=== PATIENT | female | born 1955 | race Caucasian/White ===

== ENCOUNTER → 2020-01-19 10:34 | Outpatient (REF) | payer OTHER, SELFPAY ==
--- NOTE | 2020-01-19 10:30 | CA_ITS ---
Transthoracic Echocardiogram Patient (Last, First, Middle): Leila Finney, Gender: Female Date of : 1955 Age: 64 Procedure Date: 01/19/2020 Procedure Type: Transthoracic Echocardiogram Location: OP Height: 165.1 cm Weight: 77.11 kg BSA: 1.85 m2 Heart Rate: bpm BP: 130 / 81 mmHg Telemetry Monitor: RONEL Referring MD: Bryon Ding MD Symptoms: 134.4 Mitral valve prolapse Study Quality: Fair ECG Rhythm: Sinus Conclusions: - The left ventricular systolic function is normal. The visually estimated ejection fraction is between 65-70%. - No obvious valvular pathology seen on this study. Findings Left Ventricle Normal left ventricular cavity size. There is normal left ventricular wall thickness. The left ventricular systolic function is normal. The visually estimated ejection fraction is between 65-70%. There is no evidence of regional wall motion abnormalities. Diastolic function is normal for age. Right Ventricle Normal right ventricular cavity size and systolic function. Atria Both atria are normal in size. Aortic Valve There is a normal trileaflet aortic valve. There is mild calcification of the aortic valve. There is no aortic valve stenosis. There is no aortic valve regurgitation. Mitral Valve The mitral valve appears normal. There is trace mitral valve regurgitation. There is no mitral valve stenosis. Pulmonic Valve The pulmonic valve was not well visualized. Tricuspid Valve Normal tricuspid valve structure. There is trace tricuspid valve regurgitation. The pulmonary artery systolic pressure is normal. Great Vessels The aortic annulus, sinuses of valsalva, and asc aorta are normal in size. Venous The inferior vena cava is normal in size and collapses greater than 50% with inspiration. Pericardium/Pleural There is no evidence of pericardial effusion. Prior Study Comparison No prior study available for comparison. Recommendations, Care & Conclusions No obvious valvular pathology seen on this study. Measurements 2D Linear Measurements IVSd: 0.90 0.6-0.9/0.6-1.0 cm LVIDd: 4.26 3.9-5.3/4.2-5.9 cm LVIDd Index: 2.30 2.4-3.2/2.2-3.1 cm/m2 LVIDs: 2.60 2.0-3.6 cm LVPWd: 0.94 0.7-1.1 cm Ao Root: 2.50 2.1-3.5 cm LV Mass: 155.54 67-162/88-224 g LV Mass Index: 84.08 43-95/49-115 g/m2 LVOT Diam: 2.00 3.0+(-)1.3 cm 2D Systolic Function EF 4C: 71.80 >55% EF 2C: 76.30 >55% EF BiP: 74.70 >55% Mitral Valve MV Pk E: 0.74 MV PK A: 0.71 MV Decel Time: 143.00 E/A: 1.00 E'Lateral: 8.80 E'Medial: 8.41 E/E' Med: 8.80 E/E' Lat: 8.40 PHT: 42.00 MVA PHT: 5.24 Decel [place]: 5.17 Aortic Valve AoV Pk Elie: 1.76 AoV Pk Grad: 12.00 JOSE M: 2.30 LVOT LVOT Pk Elie: 1.15 LVOT Mn Elie: 0.77 LVOT VTI: 0.27 LVOT Pk Grad: 5.00 LVOT Mn Grad: 3.00 LVOT Diam: 2.00 LVOT Area: 3.14 Diastolic Function MV Pk E: 0.74 MV Pk A: 0.71 E/A: 1.00 E'Medial: 8.41 E/E' Med: 8.80 E' Laterial: 8.80 E/E' Lat: 8.40 Tricuspid Valve TR Pk Elie: 2.25 TR Pk Grad: 20.00 RA Press: 3.00 RVSP: 23.00 Great Vessels Aorta Ao Root-2D: 2.50 2.0-3.7 cm Ao Asc: 2.60 2.1-3.4 cm Updated in Other Vendor System with Status of Final Marcus Go MD electronically signed on 01/21/2020 10:23:30 AM with status of Final
== END ==
LOC: HO.CARD 10:34
PROVIDERS: PCP Internal Medicine; Visit Provider Internal Medicine
DX: I34.1 Nonrheumatic mitral (valve) prolapse (principal)
CPT/HCPCS: 93306

== ENCOUNTER 2020-02-06 14:14 | Outpatient (REF) | payer OTHER, SELFPAY | END 2020-02-06 14:15 | disposition home or self-care (01) | LOC: HO.LNP 14:14 | PROVIDERS: Visit Provider Nurse Practitioner Family | DX: N39.0 Urinary tract infection, site not specified (principal) | CPT/HCPCS: 87086 ==

== ENCOUNTER 2021-05-16 12:22 | Outpatient (REF) | payer OTHER, SELFPAY ==
--- NOTE | ~2021-05-16 | XR_ITS ---
EXAMINATION: XR CERVICAL SPINE CLINICAL INFORMATION: Cervicalgia COMPARISON: Cervical spine x-rays 01/22/2013 TECHNIQUE: 3 views of the cervical spine were obtained. FINDINGS: The cervical spine is visualized in its entirety. There is minimal anterolisthesis of C3 on C4 in addition to minimal retrolisthesis of C5 on C6. C1/C2 articulation is within normal limits. Cervical vertebral body heights are maintained. There is mild narrowing of the C5/C6 disc space height. Small osteophytes are present within the mid and lower cervical spine. There is no prevertebral soft tissue swelling. Visualized lung apices are well aerated. XR/XR cervical spine 3V IMPRESSION: Mild degenerative changes of the cervical spine.
== END 2021-05-16 12:23 | disposition home or self-care (01) ==
LOC: HO.XRAY 12:22
PROVIDERS: PCP Internal Medicine; Visit Provider Internal Medicine
DX: M54.2 Cervicalgia (principal)
CPT/HCPCS: 72040

== ENCOUNTER 2021-07-01 07:09 | Emergency (ER) | payer OTHER, SELFPAY ==
--- NOTE | 2021-07-01 | ECG_ITS ---
Test Reason : CHEST PAIN Blood Pressure : / mmHG Vent. Rate : 085 BPM Atrial Rate : 085 BPM P-R Int : 158 ms QRS Dur : 078 ms QT Int : 364 ms P-R-T Axes : 041 047 009 degrees QTc Int : 433 ms Normal sinus rhythm Normal ECG When compared with ECG of 12-JUN-2019 20:56, No significant change was found Referred By: Generic ED Physician Electronically Signed By:Shaggy Chavez
--- NOTE | ~2021-07-01 | XR_ITS ---
EXAMINATION: XR CHEST CLINICAL INFORMATION: Chest pain COMPARISON: Chest x-ray 06/12/2019 TECHNIQUE: 2 views of the chest were obtained. FINDINGS: No significant abnormality is noted involving the heart, lungs, mediastinum, bony thorax or soft tissues. XR/XR chest 2V IMPRESSION: Unremarkable chest examination.
--- NOTE | ~2021-07-01 | CT_ITS ---
EXAMINATION: CT HEAD WITHOUT CONTRAST CLINICAL INFORMATION: Left-sided headache COMPARISON: Previous head CT October 2014 TECHNIQUE: Contiguous axial imaging was performed from the skull base to vertex without intravenous administration of contrast. This CT examination was performed using dose optimization techniques as appropriate, variously including the following: *Automated exposure control *Adjustment of mA and/or kV according to patient size (this includes techniques or standardized protocols for targeted exams where dose is matched to indication/reason for exam; i.e. extremities or head) *Use of iterative reconstruction technique DLP: 624 mGy-cm FINDINGS: There is no evidence of acute intracranial hemorrhage or territorial infarction. No abnormal mass effect or midline shift is seen. Dc to white matter differentiation is well preserved. No extra-axial fluid collections are identified. The ventricles are normal in size. There is no abnormal attenuation within the brain parenchyma. The osseous structures and soft tissues are normal. The mastoid air cells and visualized portions of the paranasal sinuses are well aerated. CT/CT head/brain wo con IMPRESSION: Unremarkable exam.
[2021-07-01 07:29] VITALS: BP 152/72; PULSE 78; RESP 16; TEMP 36.1; O2SAT 98; BMI 30.7
--- NOTE | 2021-07-01 10:11 | ED_ITS ---
HPI - Chest Pain General Chief Complaint: Chest Pain Stated Complaint: Chest pain Time Seen by Provider: 07/01/21 10:11 Source: patient Mode of arrival: ambulatory Limitations: no limitations History of Present Illness HPI narrative: 65-year-old female who presents emergency department for evaluation of chest pain and headache. The patient states that at 06:30 hours she was woken from sleep with chest pain. She states that the pain was initially located in her mid chest and radiated to her back. She states that she also felt like there was a band like sensation across her chest. She states that the pain was a sharp pressure-like pain which was 10/10. The pain lasted 2-3 hours. She states that she has been having difficulty with her GERD and her doctor changed her from omeprazole to pantoprazole. She states she took a lot of antacids prior to coming to the emergency department. At the time of evaluation she states that her chest pain significantly improved and is almost completely resolved. The patient had associated diaphoresis, throat pain. She denied nausea, vomiting, arm pain. The pain did not change with breathing or with movement. The patient states that over the last week and half she has been having a constant, dull ?toothache like ?pain located in her left temporal area. She states the pain is been constant but waxes and wanes in intensity. The pain is currently 4/10. She saw her PCP approximately 1 week prior and her PCP noted left leg swelling and hypertension and started the patient on hydrochlorothiazide. She states that the headache is not improved but the swel ling of her left leg has improved. She denies any change in vision associated with her headaches. The patient does have a history of migraine headache but states this is different than her usual migraine. The patient has been taking Emgality(galcanezumab) injections monthly for the last 6 months for her migraines, this was prescribed by our neurologist, Dr. Babin. Her last injection was on (5 days prior to evaluation). She states that this has not improved her left amish pain. MD complaint: chest pain Onset (ago): unknown (prior to arrrival) Timing of current episode: constant Prior episodes: No Onset: during rest (Woke her from sleep) Pain location: substernal and other (Anterior chest) Pain radiation: back Severity: severe Pain scale (0-10): 10 Quality: tightness Relieving factors: antacids Exacerbating factors: nothing Context: other (Elevated blood pressure, left leg swelling, left-sided headache) Associated symptoms: nausea, vomiting and diaphoresis Treatment prior to arrival: none Risk Factors Coronary artery disease risk factors: hypertension Related Data On Oral Contraceptives: No Home Medications Medication Instructions Recorded Confirmed oxybutynin chloride 5 mg tablet 5 mg PO TID 02/06/20 06/27/21 biotin 10 mg tablet 10 mg PO DAILY 02/08/20 06/27/21 methenamine hippurate 1 gram tablet 1 g PO BID 02/08/20 06/27/21 amoxicillin 500 mg capsule 2,000 mg PO ONCE cap 05/16/21 06/27/21 galcanezumab-gnlm 120 mg/mL mg SUBCUT .[id number] ml 05/16/21 06/27/21 subcutaneous pen injector (Emgality Pen) Previous Rx's Medication Instructions Recorded phenazopyridine 200 mg tablet 200 mg PO TID PRN #6 tab 02/06/20 (Pyridium) Imitrex 100 mg tablet (sumatriptan See Rx Instructions PO .COMPLEX 30 04/19/20 succinate) Days #10 tab NS meclizine 25 mg tablet 25 mg PO TID PRN 30 Days #90 tab 06/08/20 phenazopyridine 200 mg tablet 200 mg PO TID 3 Days #9 tab 12/26/20 (Pyridium) omeprazole 20 mg capsule,delayed 20 mg PO QAM #90 cap 04/27/21 release pantoprazole 40 mg tablet,delayed 40 mg PO DAILY 90 Days #90 tab 05/16/21 release hydrochlorothiazide 12.5 mg tablet 12.5 mg PO DAILY #30 tab 06/27/21 lidocaine 5 % topical patch 1 patch TOPICAL DAILY #15 ea 06/27/21 lorazepam 0.5 mg tablet 0.25 mg PO DAILY PRN #4 tab 06/27/21 sumatriptan succinate 100 mg tablet See Rx Instructions PO .COMPLEX 06/27/21 #14 tab metoclopramide HCl 10 mg tablet 10 mg PO Q6H PRN #14 tab 07/01/21 (Reglan) Allergies Allergy/AdvReac Type Severity Reaction Status Date / Time oxycodone [From PERCOCET] Allergy Severe HIVES Verified 06/27/21 14:06 hydrocodone [From VICODIN] AdvReac Severe PASS Verified 06/27/21 14:06 OUT/VOMITING Monistat 1 Allergy Unknown Unknown Uncoded 06/27/21 14:06 Suprep Bowel Prep Allergy Unknown Nausea and Uncoded 06/27/21 14:06 vomiting PMFSH Past Medical History Medical History Cataract Dizziness GERD (gastroesophageal reflux disease) History of deep venous thrombosis (~2002) History of paroxysmal supraventricular tachycardia Lumbar degenerative disc disease Migraine Mitral valve prolapse Surgical History History of surgery History of surgery (~2002) Family History Family History Father Diabetes Hypertension Stroke Cardiovascular disease Mother Myocardial infarction Social History Social History Housing: House Alcohol intake: current Alcohol intake frequency: a few times a week Patient Tobacco Use Status: Former Tobacco user e-Cigarette/Vaping Use: Never Used Second Hand Smoke Exposure: Yes Use of substances other than those prescribed or required for medical reasons: No Advance Directives: No Advance Directives Information Provided: No service: No Current occupational status: retired Cognitive needs: No Hearing needs: No Vision needs: No Physical Exam Vital Signs: Vital Signs: Last Vital Signs Temp 98.2 F 07/01/21 11:44 Pulse 81 07/01/21 14:00 Resp 17 07/01/21 14:00 BP 139/69 07/01/21 14:00 Pulse Ox 96 07/01/21 14:00 BMI result Body Mass Index 30.7 Const: General: cooperative and no acute distress Orientation/consci ousness: oriented to person and oriented to place Limitations: no limitations HEENT: Head: Yes normal to inspection, Yes normocephalic and Yes atraumatic Ears: external ears normal General nose exam: Normal external nose present Face and sinus: Yes normal facial exam and Yes other (Mild left temporal tenderness) Mouth: Normal oral and palatal mucosa present Throat: Yes posterior oropharynx normal Eyes: General: appearance normal, both eyes and all related structures Pupils: Equal, round and reactive pupils present Neck: Neck: Yes normal visual inspection, Yes no lymphadenopathy, Yes trachea midline and Yes supple Chest: Chest palpation & inspection: normal inspection of the chest and normal palpation of entire chest wall Resp: Effort & Inspection: normal respiratory effort and able to speak in complete sentences Auscultation: clear to auscultation bilaterally Cardio: Rate: regular rate Rhythm: regular rhythm Heart sounds: S1 normal heart sound present, S2 normal heart sound present and no murmurs GI: Inspection: Yes normal to inspection Palpation (GI): Soft to palpation, nontender and no guarding Auscultation: normal bowel sounds : General: Yes no CVA tenderness Back/Spine/Pelvis: Back: no CVA tenderness Skin: General skin exam: no rashes or lesions noted Neuro: General: oriented to person and oriented to place Cranial nerves: Yes CN's II-XII intact bilaterally and Yes Equal, round and reactive pupils present Cognition (Neuro): normal cognition Motor exam (neuro): 5/5 motor strength present throughout Extrem: General: Yes normal to inspection Psych: Appearance: grossly normal Speech and movement: Normal speech and movement present Affect: normal affect Attitude: cooperative Thought process: Normal thought process present Thought content: Normal thought content present Course Course Course Narrative: 65-year-old female who presents emergency department for evaluation of sudden onset substernal chest pain radiating to her back and a bandlike pain across her anterior chest which woke her up from sleep at 06:30 hours, the pain was 10 of 10 associated with diaphoresis left shoulder pain, throat pain and back pain. The pain lasts approximately 2-3 hours and is not significantly improved. Patient did take antacids prior to coming to the emergency department. Patient also is complaining of a dull pain to her left amish area is different than her usual migraine headache, this pain is been present for approximately 1 and half weeks. The patient's migraine headache syndrome is being treated with the biologic agent,Emgality injections monthly x6 months with her last injection 5 days prior. Patient did see her PCP recently who noted left leg swelling and hypertension started the patient on hydrochlorothiazide. Vital signs revealed an elevated blood pressure of 152/72 otherwise were unremarkable. Physical ex amination did reveal some left temporal tenderness otherwise was unremarkable. I did order laboratory evaluation includes CBC, CMP, troponin, PT/INR, PTT, D- dimer, ESR, EKG, chest x-ray and CT scan of the brain. Patient was treated with Toradol 15 mg IV, Benadryl 50 mg IV and Reglan 10 mg IV. 14 18: Laboratory evaluation: CBC, CMP were unremarkable except for slight elevation in the calcium 11.0 which we do not think is significant. Coags were normal including a D-dimer which was below detectable limits. Initial high sensitivity troponin was less than 3.5, repeat troponin at 03:00 hours was again less than 3.5 which is reassuring. Chest x-ray was unremarkable. CT scan of the head revealed no clear cause for the patient's left-sided head pain. ESR is pending. Patient feels significantly better after the above treatment. She states that her headache has improved was not resolved completely. At this time I do not think that the patient's chest pain is caused by myocardial injury or by acute PE. The patient does have significant occurred in most likely her chest pain is caused by soften chills spasm/reflux disease. I did discuss this with the patient. The patient will be discharged home. She was started on the following migraine regimen: Reglan 10 mg, Benadryl 50 mg and Excedrin migraine 1 tablet every 6 hours as needed for headache. Patient was given printed and verbal instructions discharged home. MDM - Chest Pain Lab Data Attestation: I reviewed the patient's lab results. Result diagrams: 07/01/21 10:18 07/01/21 10:18 Labs: Lab Results 07/01/21 07/01/21 07/01/21 Range/Units 10:18 10:18 10:18 WBC 5.9 (4.8-10.8) X10*3/uL RBC 4.68 (4.20-5.50) X10*6/uL Hgb 13.4 (12.0-16.0) g/dl Hct 41.8 (37.0-47.0) % MCV 89.3 (80.0-98.0) fL MCH 28.6 (27.0-33.0) pg MCHC 32.1 (31.0-35.0) g/dl RDW 13.8 (11.0-16.0) % Plt Count 287 (160-400) X10*3/uL MPV 9.5 (9.4-12.3) fL Immature Gran % (Auto) 0.2 (0.0-0.4) % Neut % (Auto) 61.7 (45-73) % Lymph % (Auto) 30.6 (20-40) % [place] % (Auto) 5.6 (2-11) % Eos % (Auto) 1.4 (0-4) % Baso % (Auto) 0.5 (0-2) % Lymph # (Auto) 1.8 (1.2-4.9) X10*3/uL [place] # (Auto) 0.3 (0.1-1.2) X10*3/uL Eos # (Auto) 0.1 (0.0-0.4) X10*3/uL Baso # (Auto) 0.0 (0.0-0.2) X10*3/uL Abs Immat Gran (auto) 0.01 (0.00-0.03) X10*3/uL Absolute Neuts (auto) 3.7 (2.0-8.3) x10*3/uL Absolute Nucleated RBC 0.000 (0.0-0.012) X10*3/uL Nucleated RBC % (auto) 0.0 (0.0-0.2) /100WBC ESR (0-20) MM/HR PT (9.9-13.0) SEC INR (0.9-1.1) APTT (24.1-38.0) SEC D-Dimer High Sensitivty NG/ML Sodium 141 (135-145) mmol/L Potassium 3.8 (3.3-5.1) mmol/L Chloride 103 (96-108) mmol/L Carbon Dioxide 28 (22-29) mmol/L Anion Gap 14 (12-20) BUN 16 (9-16) mg/dL Creatinine 0.81 (0.5-1.4) mg/dL Estim Creat Clear Calc 75.1 Estimated GFR > 60 Random Glucose 98 (60-115) mg/dL Calcium 11.0 H (8.4-10.2) mg/dL Troponin I High Sens < 3.5 (<3.5-17.0) ng/L 07/01/21 07/01/21 07/01/21 Range/Units 11:47 11:47 13:39 WBC (4.8-10.8) X10*3/uL RBC (4.20-5.50) X10*6/uL Hgb (12.0-16.0) g/dl Hct (37.0-47.0) % MCV (80.0-98.0) fL MCH (27.0-33.0) pg MCHC (31.0-35.0) g/dl RDW (11.0-16.0) % Plt Count (160-400) X10*3/uL MPV (9.4-12.3) fL Immature Gran % (Auto) (0.0-0.4) % Neut % (Auto) (45-73) % Lymph % (Auto) (20-40) % [place] % (Auto) (2-11) % Eos % (Auto) (0-4) % Baso % (Auto) (0-2) % Lymph # (Auto) (1.2-4.9) X10*3/uL [place] # (Auto) (0.1-1.2) X10*3/uL Eos # (Auto) (0.0-0.4) X10*3/uL Baso # (Auto) (0.0-0.2) X10*3/uL Abs Immat Gran (auto) (0.00-0.03) X10*3/uL Absolute Neuts (auto) (2.0-8.3) x10*3/uL Absolute Nucleated RBC (0.0-0.012) X10*3/uL Nucleated RBC % (auto) (0.0-0.2) /100WBC ESR (0-20) MM/HR PT 12.6 (9.9-13.0) SEC INR 1.1 (0.9-1.1) APTT 34.2 (24.1-38.0) SEC D-Dimer High Sensitivty < 150 NG/ML Sodium (135-145) mmol/L Potassium (3.3-5.1) mmol/L Chloride (96-108) mmol/L Carbon Dioxide (22-29) mmol/L Anion Gap (12-20) BUN (9-16) mg/dL Creatinine (0.5-1.4) mg/dL Estim Creat Clear Calc Estimated GFR Random Glucose (60-115) mg/dL Calcium (8.4-10.2) mg/dL Troponin I High Sens < 3.5 (<3.5-17.0) ng/L 07/01/21 Range/Units 13:39 WBC (4.8-10.8) X10*3/uL RBC (4.20-5.50) X10*6/uL Hgb (12.0-16.0) g/dl Hct (37.0-47.0) % MCV (80.0-98.0) fL MCH (27.0-33.0) pg MCHC (31.0-35.0) g/dl RDW (11.0-16.0) % Plt Count (160-400) X10*3/uL MPV (9.4-12.3) fL Immature Gran % (Auto) (0.0-0.4) % Neut % (Auto) (45-73) % Lymph % (Auto) (20-40) % [place] % (Auto) (2-11) % Eos % (Auto) (0-4) % Baso % (Auto) (0-2) % Lymph # (Auto) (1.2-4.9) X10*3/uL [place] # (Auto) (0.1-1.2) X10*3/uL Eos # (Auto) (0.0-0.4) X10*3/uL Baso # (Auto) (0.0-0.2) X10*3/uL Abs Immat Gran (auto) (0.00-0.03) X10*3/uL Absolute Neuts (auto) (2.0-8.3) x10*3/uL Absolute Nucleated RBC (0.0-0.012) X10*3/uL Nucleated RBC % (auto) (0.0-0.2) /100WBC ESR 13 (0-20) MM/HR PT (9.9-13.0) SEC INR (0.9-1.1) APTT (24.1-38.0) SEC D-Dimer High Sensitivty NG/ML Sodium (135-145) mmol/L Potassium (3.3-5.1) mmol/L Chloride (96-108) mmol/L Carbon Dioxide (22-29) mmol/L Anion Gap (12-20) BUN (9-16) mg/dL Creatinine (0.5-1.4) mg/dL Estim Creat Clear Calc Estimated GFR Random Glucose (60-115) mg/dL Calcium (8.4-10.2) mg/dL Troponin I High Sens (<3.5-17.0) ng/L ECG Data ECG #1: Attestation: I personally reviewed and interpreted this ECG as follows: Interpretation: 0713: Normal sinus rhythm with a rate of 85, normal OK interval, QRS duration QTC interval, inverted T-wave in lead 3 and AVF, no ST segment elevation, no ST segment depression, no PACs, no PVCs. This is a normal EKG. Discharge Plan Discharge Clinical Impression: Chest pain Qualifiers: Chest pain type: unspecified Qualified Code(s): R07.9 - Chest pain, unspecified Headache Qualifiers: Headache type: unspecified Headache chronicity pattern: acute headache Intractability: not intractable Qualified Code(s): R51.9 - Headache, unspecified Patient Disposition: Home, Self-Care Instructions: Chest Pain (ED), Acute Headache (ED) Additional Instructions: Your laboratory evaluation included a CBC, metabolic panel, D-dimer, sedimentation rate and 2 high sensitivity troponin I tests. These tests were all normal which is reassuring. Your EKG was unremarkable. Your chest x-ray was unremarkable. The CT scan of your brain revealed no clear cause left-sided headache At this time, I believe that your chest pain is probably related to your GERD/esophageal reflux. Continue taking medications as prescribed by your GI/primary providers. For your left-sided headache or your migraine I want you to take the following 3 medications together every 6 hours as needed for headache, nausea or vomiting. Reglan (metoclopramide) in 10 mg, 1 pill Benadryl 25 mg, 2 pills Excedrin migraine, 1 pills. After you take these medications, lie down in a dark quiet room and try to fall asleep. These medications will make you sleepy, do not drive or work after taking these medications. Follow-up with your doctor in 2 days. Please return to the emergency department if your symptoms get worse or if you develop any symptoms that are concerning to you. Prescriptions: New metoclopramide HCl [Reglan] 10 mg tablet 10 mg PO Q6H PRN (Reason: nausea and vomiting) Qty: 14 0RF No Action sumatriptan succinate [Imitrex] 100 mg tablet See Rx Instructions PO .COMPLEX 30 Days Qty: 10 5RF Rx Instructions: take 1 tab at onset of headache; if no relief, may repeat 1 tab after at least 2 hrs; max = 2 tabs/24 hrs PO phenazopyridine [Pyridium] 200 mg tablet 200 mg PO TID 3 Days Qty: 9 0RF omeprazole 20 mg capsule,delayed release(DR/EC) 20 mg PO QAM Qty: 90 0RF biotin 10 mg tablet 10 mg PO DAILY 0RF methenamine hippurate 1 gram tablet 1 g PO BID 0RF oxybutynin chloride 5 mg tablet 5 mg PO TID 0RF phenazopyridine [Pyridium] 200 mg tablet 200 mg PO TID PRN (Reason: pain) Qty: 6 0RF meclizine 25 mg tablet 25 mg PO TID PRN (Reason: dizziness) 30 Days Qty: 90 0RF hydrochlorothiazide 12.5 mg tablet 12.5 mg PO DAILY Qty: 30 0RF sumatriptan succinate 100 mg tablet See Rx Instructions PO .COMPLEX Qty: 14 0RF Rx Instructions: take 1 tab at onset of headache; if no relief, may repeat 1 tab after at least 2 hrs; max = 2 tabs/24 hrs PO lorazepam 0.5 mg tablet 0.25 mg PO DAILY PRN (Reason: anxiety) Qty: 4 0RF lidocaine 5 % adhesive patch,medicated 1 patch topical DAILY Qty: 15 0RF Rx Instructions: leave on most painful area for up to 12 hrs, to neck pain pantoprazole 40 mg tablet,delayed release (DR/EC) 40 mg PO DAILY 90 Days Qty: 90 3RF Rx Instructions: STOP Omeprazole 20 mg amoxicillin 500 mg capsule 2,000 mg PO ONCE 0RF Label Comments: for endocarditis prophylaxis Rx Instructions: take 2 hours before procedure Emgality Pen 120 mg/mL pen injector subcut .[id number] 0RF Interventions: ED Discharge Assessment Last Done: 07/01/21 14:34 Discharge Date/Time: 07/01/21 14:42
[2021-07-01 10:25] LABS: MANUAL DIFF FLAG NO
[2021-07-01 10:29] LABS: Basophils Percent Auto 0.5 % (0-2); Eosinophils Absolute Auto 0.1 X10*3/uL (0.0-0.4); Eosinophils Percent Auto 1.4 % (0-4); Hematocrit 41.8 % (37.0-47.0); Hemoglobin 13.4 g/dl (12.0-16.0); Imm Gran Abs Auto 0.01 X10*3/uL (0.00-0.03); Imm Gran Pct Auto 0.2 % (0.0-0.4); Lymphocytes Absolute Auto 1.8 X10*3/uL (1.2-4.9); Lymphocytes Percent Auto 30.6 % (20-40); Mean Corpuscular HGB Conc 32.1 g/dl (31.0-35.0); Mean Corpuscular Hemoglobin 28.6 pg (27.0-33.0); Mean Corpuscular Volume 89.3 fL (80.0-98.0); Mean Platelet Volume 9.5 fL (9.4-12.3); Monocytes Absolute Auto 0.3 X10*3/uL (0.1-1.2); Monocytes Percent Auto 5.6 % (2-11); Neutrophils Absolute Auto 3.7 x10*3/uL (2.0-8.3); Neutrophils Percent Auto 61.7 % (45-73); Platelet Count 287 X10*3/uL (160-400); Red Blood Count 4.68 X10*6/uL (4.20-5.50); Red Cell Distribution Width 13.8 % (11.0-16.0); White Blood Count 5.9 X10*3/uL (4.8-10.8)
[2021-07-01 10:49] LABS: Anion Gap 14 (12-20); Blood Urea Nitrogen 16 mg/dL (9-16); Carbon Dioxide 28 mmol/L (22-29); Chloride 103 mmol/L (96-108); Creatinine Clr Calc Pharmacy 75.1; Estimated Glomerular Filt Rate > 60; Glucose Random 98 mg/dL (60-115); Potassium 3.8 mmol/L (3.3-5.1); Sodium 141 mmol/L (135-145)
[2021-07-01 10:51] LABS: Troponin-I High Sensitivity < 3.5 ng/L (<3.5-17.0)
[2021-07-01 11:44] VITALS: BP 155/79; PULSE 85; RESP 16; TEMP 36.8; O2SAT 100
--- NOTE | 2021-07-01 11:58 | PC.NURSE ---
pt a&ox3, vss - slightly elevated bp, per pt high bp is new, saw pcp and was started on new medication for the same. chest pain started this am around 0600, pain is now 3/10. vehicle monitor technician applied - NSR. ultrasound guided IV placed, labs drawn, will continue to monitor.
[2021-07-01] MEDS: Ketorolac Tromethamine 15 MG/ML VIAL IVPUSH (12:03)
[2021-07-01 12:04] LABS: INTERNATIONAL NORM RATIO 1.1 (0.9-1.1); Prothrombin Time 12.6 SEC (9.9-13.0)
[2021-07-01] MEDS: Metoclopramide HCl 10 MG/2 ML VIAL IVPUSH (12:04)
[2021-07-01] MEDS: diphenhydrAMINE HCL 50 MG/ML VIAL IVPUSH (12:04)
[2021-07-01 12:07] LABS: Partial Thromboplastin Time 34.2 SEC (24.1-38.0)
--- NOTE | 2021-07-01 12:11 | PC.NURSE ---
obtained report from abel, patient currently a&ox3, family at bedside, pt difficult to access via iv, pt had access inserted via ultrasound by trained RN, labs drawn, pt medicated for pain per order, monitor car operator nsr 90s, vss, will continue to monitor
[2021-07-01 12:21] LABS: D Dimer High Sensitivity < 150 NG/ML
[2021-07-01 12:30] VITALS: PULSE 89
[2021-07-01] MEDS: 0.9 % Sodium Chloride 1,000 ML 999 ML IV (13:19)
--- NOTE | 2021-07-01 13:19 | PC.NURSE ---
flds started per provider order.
[2021-07-01 14:00] VITALS: BP 139/69; PULSE 81; RESP 17; O2SAT 96
[2021-07-01 14:06] LABS: Troponin-I High Sensitivity < 3.5 ng/L (<3.5-17.0)
--- NOTE | 2021-07-01 14:10 | PC.NURSE ---
pt a&ox3, vss - bp returned to norm, lab results pending, provider in room.
[2021-07-01 14:18] LABS: Erythrocyte Sedimentation Rate 13 MM/HR (0-20)
== END 2021-07-01 14:42 | disposition home or self-care (01) ==
PROVIDERS: Emergency Provider Emergency Medicine Emergency Medical Services; PCP Internal Medicine
DX: R07.9 Chest pain, unspecified (principal); R51.9 Headache, unspecified; K21.9 Gastro-esophageal reflux disease without esophagitis; I10 Essential (primary) hypertension; Z86.718 Personal history of other venous thrombosis and embolism
CPT/HCPCS: 36415; 70450; 71046; 80048; 84484; 85025; 85379; 85610; 85652; 85730; 93005; 96361; 96374; 96375; 99284; 99285; J1200; J1885; J2765

== ENCOUNTER 2021-07-05 08:53 | Outpatient (REF) | payer OTHER, SELFPAY ==
[2021-07-05 09:11] LABS: MANUAL DIFF FLAG NO
[2021-07-05 09:20] LABS: Basophils Percent Auto 0.5 % (0-2); Eosinophils Absolute Auto 0.2 X10*3/uL (0.0-0.4); Eosinophils Percent Auto 2.9 % (0-4); Hematocrit 42.3 % (37.0-47.0); Hemoglobin 13.9 g/dl (12.0-16.0); Imm Gran Abs Auto 0.02 X10*3/uL (0.00-0.03); Imm Gran Pct Auto 0.3 % (0.0-0.4); Lymphocytes Absolute Auto 2.3 X10*3/uL (1.2-4.9); Lymphocytes Percent Auto 35.4 % (20-40); Mean Corpuscular HGB Conc 32.9 g/dl (31.0-35.0); Mean Corpuscular Hemoglobin 28.8 pg (27.0-33.0); Mean Corpuscular Volume 87.8 fL (80.0-98.0); Mean Platelet Volume 9.6 fL (9.4-12.3); Monocytes Absolute Auto 0.5 X10*3/uL (0.1-1.2); Neutrophils Absolute Auto 3.6 x10*3/uL (2.0-8.3); Neutrophils Percent Auto 53.9 % (45-73); Platelet Count 312 X10*3/uL (160-400); Red Blood Count 4.82 X10*6/uL (4.20-5.50); Red Cell Distribution Width 13.6 % (11.0-16.0); White Blood Count 6.6 X10*3/uL (4.8-10.8)
[2021-07-05 09:35] LABS: Estimated Average Glucose 105 mg/dL; Hemoglobin A1c % 5.3 %
[2021-07-05 09:53] LABS: Alanine Aminotransferase 27 U/L (0-31); Albumin Level 4.5 g/dL (3.5-5.0); Alkaline Phosphatase 87 U/L (39-117); Anion Gap 15 (12-20); Aspartate Amino Transferase 23 U/L (5-31); Bilirubin Total 0.8 mg/dL (0.0-1.0); Blood Urea Nitrogen 18 mg/dL (9-16); Calcium 10.1 mg/dL (8.4-10.2); Carbon Dioxide 28 mmol/L (22-29); Chloride 101 mmol/L (96-108); Cholesterol 274 mg/dL; Estimated Glomerular Filt Rate > 60; Glucose Fasting 107 mg/dL (60-99); HDL Cholesterol 73 mg/dL; LDL Cholesterol Calculated 179 mg/dl; Potassium 4.1 mmol/L (3.3-5.1); Sodium 140 mmol/L (135-145); Total Protein 7.5 g/dL (6.5-8.0); Triglycerides 111 mg/dL
[2021-07-05 10:17] LABS: TSH reflex Free T4 1.96 uIU/mL (0.32-4.0)
[2021-07-05 10:28] LABS: Folate 17.3 ng/mL (> or = 4.0); Vitamin B12 433 pg/mL (200-900)
[2021-07-08 13:25] LABS: Calcium (PTHI) 10.3 mg/dL (8.6-10.4); PTHI 56 pg/mL (16-77)
[2021-07-10 13:41] LABS: Vitamin D 25-OH, D2 <4 ng/mL; Vitamin D 25-OH, D3 47 ng/mL; Vitamin D 25-OH, Total 47 ng/mL (30-100)
== END 2021-07-05 08:54 | disposition home or self-care (01) ==
LOC: HO.LAB 08:53
PROVIDERS: PCP Internal Medicine; Visit Provider Nurse Practitioner Acute Care
DX: K21.9 Gastro-esophageal reflux disease without esophagitis (principal); I10 Essential (primary) hypertension; R42 Dizziness and giddiness; I34.1 Nonrheumatic mitral (valve) prolapse
CPT/HCPCS: 36415; 80053; 80061; 82306; 82607; 82746; 83036; 83970; 84443; 85025

== ENCOUNTER 2021-07-31 07:23 | Outpatient (REF) | payer OTHER, SELFPAY ==
--- NOTE | ~2021-07-31 | CT_ITS ---
EXAMINATION: CT ABDOMEN AND PELVIS WITH CONTRAST CLINICAL INFORMATION: Epigastric pain. COMPARISON: None TECHNIQUE: Multidetector volumetric images were obtained from the superior aspect of the liver through the pubic symphysis following administration 85 mL of Omnipaque 350 intravenous contrast. Sagittal and coronal reformatted images were obtained on the technologist's workstation. Oral contrast: Yes This CT examination was performed using dose optimization techniques as appropriate, variously including the following: *Automated exposure control *Adjustment of mA and/or kV according to patient size (this includes techniques or standardized protocols for targeted exams where dose is matched to indication/reason for exam; i.e. extremities or head) *Use of iterative reconstruction technique DLP: 487 mGy-cm FINDINGS: LUNG BASES: Linear airspace disease is noted at the medial segment of the right middle lobe, likely represent hypoventilatory, atelectatic changes. LIVER, GALLBLADDER, AND BILIARY TREE: The liver is normal in size, shape, and attenuation. No focal hepatic lesion or biliary ductal dilatation is present. The gallbladder is unremarkable with no evidence of radiopaque gallstones, gallbladder wall thickening, or obvious pericholecystic inflammatory changes. PANCREAS: Focal bulkiness is present involving the proximal to mid part of the body of the pancreas (198:6), not optimally characterized. There is no evidence of any definite pancreatic ductal dilatation or peripancreatic fluid collection or inflammatory changes present. A follow-up multiphasic pre and postcontrast CT scan or MRI per pancreatic mass protocol is recommended. SPLEEN: Unremarkable. ADRENAL GLANDS: Unremarkable. KIDNEYS AND URETERS: The kidneys are normal in size, shape, and attenuation. No hydronephrosis, hydroureter, or calculi seen. No perinephric stranding. BLADDER: Unremarkable. GASTROINTESTINAL TRACT: Significant fecal residual is noted within the large bowel without any abnormal bowel dilatation, thickening, air-fluid level or pericolonic inflammatory changes. The appendix is well-visualized at right iliac fossa and is unremarkable. The small bowel loops are decompressed. The stomach is decompressed. ABDOMINAL WALL: No significant hernia is appreciated. LYMPH NODES: Normal. VASCULAR: Unremarkable. PELVIC VISCERA: There is no pelvic mass present. No evidence of any free fluid and/or free air. OSSEOUS STRUCTURES: Moderate mid lumbar multilevel degenerative spondylosis related changes are noted. CT/CT abdomen pelvis w con IMPRESSION: The proximal to mid part of the body of the pancreas shows focal fullness/bulkiness without evidence of any pancreatic ductal dilatation or peripancreatic fluid collection, not optimally characterized. A follow-up multiphasic pre and postcontrast CT scan or MRI per pancreatic mass protocol is recommended. Significant fecal residual throughout the entire large bowel without evidence of any bowel obstruction.
[2021-07-31] MEDS: iohexoL 350 MG/ML 100 ML INFUS..BTL 85 ML IV (10:13)
[2021-07-31] MEDS: Barium Sulfate Oral (Mocha) 450 ML ORAL.SUSP 900 ML PO (11:13)
== END 2021-07-31 07:24 | disposition home or self-care (01) ==
LOC: HO.CT 07:23
PROVIDERS: PCP Internal Medicine; Visit Provider Nurse Practitioner Acute Care
DX: R10.13 Epigastric pain (principal)
CPT/HCPCS: 74177; Q9967

== ENCOUNTER 2021-08-13 07:59 | Outpatient (REF) | payer OTHER, SELFPAY ==
--- NOTE | ~2021-08-13 | MR_ITS ---
EXAMINATION: MR ABDOMEN WITHOUT AND WITH CONTRAST CLINICAL INFORMATION: Abnormal appearing pancreas on previous CT COMPARISON: CT dated 07/31/2021 TECHNIQUE: MR abdomen was performed without and with use of 8.5 mL intravenous Gadavist gadolinium contrast. Postcontrast images are performed in multiphase dynamic sequences. Imaging was performed in 3 planes. In addition, heavily T2-weighted images for purposes of MR cholangiopancreatography were also performed. FINDINGS: LUNG BASES: The visualized lung bases are unremarkable. LIVER, GALLBLADDER, AND BILIARY TREE: The liver is normal in size, smooth in contour, and normal in signal. No focal hepatic lesion or biliary ductal dilatation is present. Gallbladder unremarkable. PANCREAS: No pancreatic mass. There is mild prominence of the pancreatic body and tail with respect to the pancreatic neck and head, however the pancreatic architecture appears normal. No pancreatic inflammation. Nondilated pancreatic duct. SPLEEN: Normal. ADRENAL GLANDS: Normal. KIDNEYS AND URETERS: The kidneys are normal in size, shape, and enhance symmetrically. No hydronephrosis. Subcentimeter simple cyst present in the lower pole left kidney; benign requiring no further follow-up. No perinephric stranding. GASTROINTESTINAL TRACT: No bowel obstruction. No ascites or fluid collection. ABDOMINAL WALL: No significant hernia is appreciated. LYMPH NODES: No lymphadenopathy. VASCULAR: Normal. OSSEOUS STRUCTURES: Marrow signal normal. MR/MR abdomen wo/w con IMPRESSION: The pancreas is normal. Unremarkable MR imaging appearance of the abdominal viscera.
== END 2021-08-13 08:00 | disposition home or self-care (01) ==
LOC: HO.MRI 07:59
PROVIDERS: Visit Provider Internal Medicine
DX: Q45.3 Other congenital malformations of pancreas and pancreatic duct (principal)
CPT/HCPCS: 74183; A9585

== ENCOUNTER 2021-08-16 12:26 | Outpatient (REF) | payer OTHER, SELFPAY ==
[2021-08-16 12:46] LABS: MANUAL DIFF FLAG NO
[2021-08-16 13:00] LABS: Basophils Percent Auto 0.4 % (0-2); Eosinophils Absolute Auto 0.2 X10*3/uL (0.0-0.4); Hemoglobin 11.6 g/dl (12.0-16.0); Imm Gran Abs Auto 0.01 X10*3/uL (0.00-0.03); Imm Gran Pct Auto 0.2 % (0.0-0.4); Mean Corpuscular HGB Conc 32.2 g/dl (31.0-35.0); Mean Corpuscular Hemoglobin 28.6 pg (27.0-33.0); Mean Corpuscular Volume 88.9 fL (80.0-98.0); Mean Platelet Volume 9.1 fL (9.4-12.3); Monocytes Absolute Auto 0.4 X10*3/uL (0.1-1.2); Monocytes Percent Auto 8.1 % (2-11); Neutrophils Absolute Auto 2.7 x10*3/uL (2.0-8.3); Neutrophils Percent Auto 50.3 % (45-73); Platelet Count 298 X10*3/uL (160-400); Red Blood Count 4.05 X10*6/uL (4.20-5.50); Red Cell Distribution Width 14.2 % (11.0-16.0); White Blood Count 5.3 X10*3/uL (4.8-10.8)
[2021-08-16 13:22] LABS: Alanine Aminotransferase 16 U/L (0-31); Albumin Level 4.1 g/dL (3.5-5.0); Alkaline Phosphatase 72 U/L (39-117); Anion Gap 11 (12-20); Aspartate Amino Transferase 22 U/L (5-31); Bilirubin Total 0.4 mg/dL (0.0-1.0); Blood Urea Nitrogen 15 mg/dL (9-16); Calcium 9.5 mg/dL (8.4-10.2); Carbon Dioxide 26 mmol/L (22-29); Chloride 108 mmol/L (96-108); Estimated Glomerular Filt Rate > 60; Glucose Random 86 mg/dL (60-115); Potassium 4.2 mmol/L (3.3-5.1); Sodium 141 mmol/L (135-145); Total Protein 6.7 g/dL (6.5-8.0)
[2021-08-16 13:32] LABS: Estimated Average Glucose 103 mg/dL; Hemoglobin A1c % 5.2 %
[2021-08-16 14:37] LABS: Appearance Urine CLEAR; Color Urine YELLOW; Glucose Urine UA NEG (NEG); Leukocyte Esterase Urine 1+ (NEG); Nitrite Urine NEG (NEG); Specific Gravity - Urine <= 1.005 (1.005-1.025); UACC Culture Trigger YES; Urine Blood NEG (NEG); Urine Ketones NEG (NEG); Urine Protein NEG (NEG-TRACE)
[2021-08-16 14:45] LABS: Squamous Epithelial Cell Urine 1+ /LPF
[2021-08-16 14:51] LABS: Creatinine Urine 59.64 mg/dL; Microalbum/Creatinine Ratio Ur 8.3 ug/mg cr
[2021-08-16 14:53] LABS: RBC Urine 0 /HPF (0); Urine Talc Crystals 1+ /LPF
[2021-08-16 14:54] LABS: Bacteria Urine TRACE /LPF
== END 2021-08-16 12:27 | disposition home or self-care (01) ==
LOC: HO.LAB 12:26
PROVIDERS: PCP Internal Medicine; Visit Provider Internal Medicine
DX: I10 Essential (primary) hypertension (principal); R73.01 Impaired fasting glucose
CPT/HCPCS: 36415; 80053; 81001; 82043; 83036; 85025; 87086

== ENCOUNTER 2021-09-27 08:00 | Outpatient (RCR) | payer MEDICARE, OTHER, SELFPAY ==
--- NOTE | 2021-07-09 18:07 | MHC.PT.EP ---
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 Pt is deemed an appropriate candidate to receive skilled PT in order to address her physical limitations to improve her functional ability. evidence of cervical disc degeneration on XR, Frequency and Duration: The patient will be seen 2 x / wk x 5 wks. Short Term Goals: Initiate HEP. improve baseline AM/ PM pain to <6/10; initial 9/10. Detention Goals: I with HEP. Pt will no longer be disturbed of sleep d/t cervical pain. Pt will be able to read as much as she'd like with at most slight pain in her neck; initial: moderate and restricted. (NDI). Pt will no longer have cervical pain while driving. Moderate pain. Improve DNF endurance to > 24 sec in order to demonstrate improved cervical stability; initial 8 sec. Treatment Plan: Modalities to reduce pain, spasms and effusion. Manual therapy to restore motion and function. Therapeutic exercise to improve strength and flexibility. Neuromuscular re-education for posture and balance. Therapeutic activities to return to functional activities of daily living. Electronically signed by: John Burgess, PT, DPT Please sign and return to therapist. Thank you for your referral.
--- NOTE | 2021-09-27 13:25 | MHC.PT.DC ---
[facility] [place] Office [place] Office [place] Office [address] Daren Snow [address] [phone] F: [phone] F: [phone] F: [phone] F: [phone] Physical Therapy Discharge Report Diagnosis: Cervical disc degeneration Date of Surgery: Date of Evaluation: 07/09/21 Date of Discharge: 09/27/21 Treatments to Date: 16 Cancellations to Date: No Shows to Date: Discharge Status: Improved Function Independent with HEP Discharge Summary: Leila has been an active participant in her therapy and has met some of her therapeutic goals and has made progress on all of her goals. She persists with cervical pain though is a lot better . She is in agreement with DC at this time as she is improved and I with her home program. Electronically signed by: John Burgess PT. Please sign and return to therapist. Thank you for your referral.
== END 2021-09-27 13:26 | disposition home or self-care (01) ==
LOC: HO.PTCHIC 08:00
PROVIDERS: PCP Internal Medicine; Visit Provider Nurse Practitioner Acute Care
DX: M50.30 Other cervical disc degeneration, unspecified cervical region (principal)
CPT/HCPCS: 97014; 97110; 97140; 97161

== ENCOUNTER 2021-10-16 08:19 | Outpatient (REF) | payer MEDICARE, SELFPAY ==
[2021-10-16 08:30] LABS: MANUAL DIFF FLAG NO
[2021-10-16 09:10] LABS: Basophils Percent Auto 0.4 % (0-2); Eosinophils Absolute Auto 0.1 X10*3/uL (0.0-0.4); Eosinophils Percent Auto 2.8 % (0-4); Hematocrit 38.2 % (37.0-47.0); Hemoglobin 12.2 g/dl (12.0-16.0); Imm Gran Abs Auto 0.01 X10*3/uL (0.00-0.03); Imm Gran Pct Auto 0.2 % (0.0-0.4); Lymphocytes Absolute Auto 2.3 X10*3/uL (1.2-4.9); Lymphocytes Percent Auto 46.4 % (20-40); Mean Corpuscular HGB Conc 31.9 g/dl (31.0-35.0); Mean Corpuscular Hemoglobin 28.6 pg (27.0-33.0); Mean Corpuscular Volume 89.5 fL (80.0-98.0); Mean Platelet Volume 9.7 fL (9.4-12.3); Monocytes Absolute Auto 0.5 X10*3/uL (0.1-1.2); Monocytes Percent Auto 9.2 % (2-11); Neutrophils Absolute Auto 2.1 x10*3/uL (2.0-8.3); Platelet Count 280 X10*3/uL (160-400); Red Blood Count 4.27 X10*6/uL (4.20-5.50)
[2021-10-16 09:13] LABS: Appearance Urine CLEAR; Color Urine YELLOW; Glucose Urine UA NEG (NEG); Leukocyte Esterase Urine NEG (NEG); Nitrite Urine NEG (NEG); UACC Culture Trigger NO; Urine Blood TRACE (NEG); Urine Ketones NEG (NEG); Urine Protein NEG (NEG-TRACE)
[2021-10-16 09:18] LABS: Estimated Average Glucose 103 mg/dL; Hemoglobin A1C 108.0022 umol/L; Hemoglobin A1c % 5.2 %
[2021-10-16 09:28] LABS: Bacteria Urine TRACE /LPF; RBC Urine 0-2 /HPF (0); Squamous Epithelial Cell Urine TRACE /LPF; UACC CULT YES
[2021-10-16 09:58] LABS: Alanine Aminotransferase 24 U/L (0-31); Albumin Level 4.4 g/dL (3.5-5.0); Alkaline Phosphatase 72 U/L (39-117); Anion Gap 13 (12-20); Aspartate Amino Transferase 25 U/L (5-31); Bilirubin Total 0.5 mg/dL (0.0-1.0); Blood Urea Nitrogen 20 mg/dL (9-16); Calcium 9.3 mg/dL (8.4-10.2); Carbon Dioxide 28 mmol/L (22-29); Chloride 104 mmol/L (96-108); Cholesterol 279 mg/dL; Estimated Glomerular Filt Rate > 60; Glucose Fasting 90 mg/dL (60-99); HDL Cholesterol 70 mg/dL; LDL Cholesterol Calculated 182 mg/dl; Potassium 4.4 mmol/L (3.3-5.1); Sodium 141 mmol/L (135-145); Triglycerides 137 mg/dL
[2021-10-16 10:00] LABS: Free T4 (Free Thyroxine) 0.99 ng/dL (0.71-1.85); Thyroid Stimulating Hormone 1.73 uIU/mL (0.32-4.0); Vitamin D 25-OH Total 38.6 ng/mL (>30)
== END 2021-10-16 08:20 | disposition home or self-care (01) ==
LOC: HO.LAB 08:19
PROVIDERS: PCP Internal Medicine; Visit Provider Internal Medicine
DX: Z01.812 Encounter for preprocedural laboratory examination (principal); I10 Essential (primary) hypertension; E78.00 Pure hypercholesterolemia, unspecified; E55.9 Vitamin D deficiency, unspecified; R73.01 Impaired fasting glucose; R79.89 Other specified abnormal findings of blood chemistry
CPT/HCPCS: 36415; 80053; 80061; 81001; 81003; 82306; 83036; 84439; 84443; 85025; 87086

== ENCOUNTER → 2022-02-18 07:57 | Outpatient (BNVA) | payer MEDICARE, SELFPAY | PROVIDERS: PCP Internal Medicine; Referring Provider Internal Medicine; Visit Provider Internal Medicine | DX: R13.10 Dysphagia, unspecified (principal); R07.9 Chest pain, unspecified | CPT/HCPCS: 99202 ==

== ENCOUNTER 2022-03-28 09:26 | Outpatient (REF) | payer MEDICARE, SELFPAY ==
--- NOTE | ~2022-03-28 | FL_ITS ---
EXAMINATION: FL BARIUM SWALLOW CLINICAL INFORMATION: Dysphagia. COMPARISON: None TECHNIQUE: Barium swallow examination is performed using fluoroscopic evaluation in addition to multiple fluoroscopic spot views. The patient is imaged both upright and prone and using both thick and thin sulfate along with effervescent granules. Fluoroscopy time: 3.3 minutes DAP: 33.473 Gy-cm2 Images: 61 FINDINGS: Following oral administration of thick barium and barium-coated turkey in upright view there is normal propagation of bolus from the oral cavity through the pharynx, esophagus into stomach without any evidence of obstruction, narrowing or stricture. However there is diminished peristalsis with solid food which cleared with thin barium and water. On placing patient supine and prone lying and oral administration of thin barium there is normal distention of esophagus and pharynx without any intrinsic obstruction, narrowing or extrinsic compression. In supine view there is small hiatal hernia with mild gastroesophageal reflux. FL/FL barium swallow IMPRESSION: Small hiatal hernia with mild gastroesophageal reflux. Slightly diminished peristalsis of the mid and distal esophagus after oral administration of solid food.
== END 2022-03-28 09:27 | disposition home or self-care (01) ==
LOC: HO.XRAY 09:26
PROVIDERS: PCP Internal Medicine; Visit Provider Internal Medicine
DX: R13.10 Dysphagia, unspecified (principal)
CPT/HCPCS: 74220

== ENCOUNTER 2022-04-17 07:50 | Outpatient (REF) | payer MEDICARE, SELFPAY ==
[2022-04-17 08:54] LABS: Blood Urea Nitrogen 19 mg/dL (9-16)
[2022-04-17 09:01] LABS: Alanine Aminotransferase 27 U/L (0-31); Albumin Level 4.2 g/dL (3.5-5.0); Alkaline Phosphatase 64 U/L (39-117); Anion Gap 14 (12-20); Aspartate Amino Transferase 25 U/L (5-31); Bilirubin Total 0.5 mg/dL (0.0-1.0); Blood Urea Nitrogen 19 mg/dL (9-16); Calcium 9.7 mg/dL (8.4-10.2); Carbon Dioxide 27 mmol/L (22-29); Chloride 106 mmol/L (96-108); Cholesterol 284 mg/dL; Estimated Glomerular Filt Rate > 60; Glucose Fasting 90 mg/dL (60-99); HDL Cholesterol 70 mg/dL; LDL Cholesterol Calculated 180 mg/dl; Potassium 4.1 mmol/L (3.3-5.1); Sodium 143 mmol/L (135-145); Total Protein 6.8 g/dL (6.5-8.0); Triglycerides 173 mg/dL
[2022-04-17 09:06] LABS: Appearance Urine Clear; Color Urine Yellow; Glucose Urine UA Negative (Negative); Leukocyte Esterase Urine Small (1+) (Negative); Nitrite Urine Negative (Negative); PH 5.5 (5.0-9.0); UMIC TRIGGER UACC YES; Urine Blood Negative (Negative); Urine Ketones Negative (Negative); Urine Protein Negative (Neg-Trace)
[2022-04-17 09:11] LABS: Bacteria Urine None Seen (None Seen); Hyaline Casts Urine 0-2 /LPF (0-2); RBC Urine 0-2 /HPF (0-2); Squamous Epithelial Cell Urine >20 /HPF (0-2); UACC Culture Trigger YES
[2022-04-17 09:16] LABS: TSH reflex Free T4 2.38 uIU/mL (0.32-4.0)
== END 2022-04-17 07:51 | disposition home or self-care (01) ==
LOC: HO.LAB 07:50
PROVIDERS: PCP Internal Medicine; Visit Provider Internal Medicine
DX: Z01.812 Encounter for preprocedural laboratory examination (principal); E78.00 Pure hypercholesterolemia, unspecified; I10 Essential (primary) hypertension; R73.01 Impaired fasting glucose
CPT/HCPCS: 36415; 80053; 80061; 81001; 84443; 84520; 87086

== ENCOUNTER → 2022-05-20 09:18 | Outpatient (BNVA) | payer MEDICARE, SELFPAY | PROVIDERS: PCP Internal Medicine; Referring Provider Internal Medicine; Visit Provider Internal Medicine | DX: Z01.810 Encounter for preprocedural cardiovascular examination (principal); R07.2 Precordial pain | CPT/HCPCS: 93005; 99202 ==

== ENCOUNTER → 2022-05-27 09:45 | Outpatient (REF) | payer MEDICARE, SELFPAY ==
--- NOTE | 2022-05-27 09:53 | CA_ITS ---
Transthoracic Echocardiogram Patient (Last, First, Middle): Leila Finney, Gender: Female Date of : 1955 Age: 66 Procedure Date: 05/27/2022 Procedure Type: Transthoracic Echocardiogram Location: OP Height: 162.56 cm Weight: 81.65 kg BSA: 1.87 m2 Heart Rate: 71 bpm BP: 130 / 80 mmHg Promotions Associate: POLLY Referring MD: Marcus Go MD Symptoms: R07.2 - Precordial pain Study Quality: Fair/Contrast ECG Rhythm: Sinus Conclusions: - The left ventricular systolic function is normal. The calculated ejection fraction is 66% by biplane method. - No obvious valvular pathology seen on this study. Findings Procedure Information Contrast agent, definity, is being given per protocol without apparent complications. Left Ventricle Normal left ventricular cavity size. There is normal left ventricular wall thickness. The left ventricular systolic function is normal. The calculated ejection fraction is 66% by biplane method. There is no evidence of regional wall motion abnormalities. Diastolic function is normal for age. Right Ventricle Normal right ventricular cavity size and systolic function. Atria Both atria are normal in size. Aortic Valve There is a normal trileaflet aortic valve. There is mild calcification of the aortic valve. There is no aortic valve stenosis. There is no aortic valve regurgitation. Mitral Valve The mitral valve appears normal. There is no mitral valve regurgitation. There is no mitral valve stenosis. Pulmonic Valve The pulmonic valve is likely normal. Tricuspid Valve Normal tricuspid valve structure. There is trace tricuspid valve regurgitation. There is no evidence of pulmonary hypertension. Great Vessels The asc aorta is normal in size. Venous The inferior vena cava is normal in size and collapses greater than 50% with inspiration. Pericardium/Pleural There is no evidence of pericardial effusion. Prior Study Comparison No significant change compared to prior study dated: 01/19/2020. Recommendations, Care & Conclusions No obvious valvular pathology seen on this study. Measurements 2D Linear Measurements IVSd: 0.74 0.6-0.9/0.6-1.0 cm LVIDd: 4.80 3.9-5.3/4.2-5.9 cm LVIDd Index: 2.57 2.4-3.2/2.2-3.1 cm/m2 LVIDs: 2.67 2.0-3.6 cm LVPWd: 0.76 0.7-1.1 cm LA Diam: 3.30 2.7-3.8/3.0-4.0 cm LAIDs Index: 1.76 1.5-2.3 cm/m2 LV Mass: 144.04 67-162/88-224 g LV Mass Index: 77.03 43-95/49-115 g/m2 LVOT Diam: 2.00 3.0+(-)1.3 cm 2D Systolic Function EF 4C: 65.60 >55% EF 2C: 64.70 >55% EF BiP: 65.90 >55% Mitral Valve MV Pk E: 0.67 MV PK A: 0.74 MV Decel Time: 259.00 E/A: 0.90 E'Lateral: 10.40 E'Medial: 6.42 E/E' Med: 10.50 E/E' Lat: 6.50 PHT: 76.00 MVA PHT: 2.89 Decel [place]: 2.60 Aortic Valve AoV Pk Elie: 1.63 AoV Mn Elie: 1.12 AoV VTI: 0.32 AoV Pk Grad: 11.00 Aov Mn Grad: 6.00 JOSE M Cont.VTI: 2.36 LVOT LVOT Pk Elie: 1.22 LVOT Mn Elie: 0.82 LVOT VTI: 0.24 LVOT Pk Grad: 6.00 LVOT Mn Grad: 3.00 LVOT Diam: 2.00 LVOT Area: 3.14 Diastolic Function MV Pk E: 0.67 MV Pk A: 0.74 E/A: 0.90 E'Medial: 6.42 E/E' Med: 10.50 E' Laterial: 10.40 E/E' Lat: 6.50 Right Ventricle TAPSE (mm): 26.00 TVS' Elie: 11.70 Tricuspid Valve TR Pk Elie: 1.91 TR Pk Grad: 15.00 RA Press: 3.00 RVSP: 18.00 Great Vessels Aorta Sinus of Valsalva: 2.70 2.0-3.5 cm Ao Asc: 2.80 2.1-3.4 cm Pulmonary Valve PV Pk Elie: 1.06 Peak PV Grad: 4.00 Updated in Other Vendor System with Status of Final Marcus Go MD electronically signed on 05/27/2022 11:31:56 AM with status of Final
== END ==
LOC: HO.CARD 09:45
PROVIDERS: PCP Internal Medicine; Visit Provider Internal Medicine
DX: R07.2 Precordial pain (principal)
CPT/HCPCS: 93306; Q9957

== ENCOUNTER → 2022-06-11 10:57 | Outpatient (REF) | payer MEDICARE, SELFPAY ==
--- NOTE | 2022-06-11 10:59 | CA_ITS ---
Acquisition Time: 2022-06-11 11:09:39 Total Exercise Time: 00:06:10 Test Indications: CP Medications: SEE CHART Protocol: DOMINICK Max HR: 179 BPM 115% of Pred: 155 BPM Max BP: 150/062 mmHG Max Work Load: 7.2 METS Exercise stress ECHO using Dominick protocol, total of 6 min 10 sec. METS 7.20 HR up to 115% of TAPHR and test was stopped, ECHO images taken immediately after. Definity contrast used. EKG without arrhythmias no ischemic changes seen. Normotensive response to exercise. Test reviewed with Dr. Matos. Referred By: Marcus Go Overread By: Maty Zuniga NP
== END ==
LOC: HO.CARD 10:57
PROVIDERS: PCP Internal Medicine; Visit Provider Internal Medicine
DX: R07.2 Precordial pain (principal)
CPT/HCPCS: 93350; Q9957

== ENCOUNTER → 2022-06-24 12:52 | Outpatient (BNVA) | payer MEDICARE, SELFPAY | PROVIDERS: PCP Internal Medicine; Visit Provider Internal Medicine | DX: R07.9 Chest pain, unspecified (principal); R13.10 Dysphagia, unspecified; K22.4 Dyskinesia of esophagus | CPT/HCPCS: 99212 ==

== ENCOUNTER 2022-09-01 16:44 | Outpatient (REF) | payer MEDICARE, SELFPAY ==
--- NOTE | ~2022-09-01 | XR_ITS ---
EXAMINATION: XR RIBS, RIGHT CLINICAL INFORMATION: Contusion of chest wall COMPARISON: CT abdomen pelvis 11/30/2021, chest radiograph 07/01/2021 TECHNIQUE: Single view chest and 3 views of the right ribs were obtained. FINDINGS: Lungs are clear. No consolidation, pneumothorax, or pleural effusion. The cardiomediastinal silhouette and pulmonary vasculature are normal. There is a biconvex thoracolumbar scoliosis with associated degenerative changes.. Ribs are intact. No displaced fractures are identified. XR/XR ribs RT min 3V w CXR1V IMPRESSION: No acute intrathoracic disease. No displaced rib fractures. Scoliosis and degenerative changes.
== END 2022-09-01 16:45 | disposition home or self-care (01) ==
LOC: HO.XRAY 16:44
PROVIDERS: Visit Provider Internal Medicine
DX: S20.219A Contusion of unspecified front wall of thorax, initial encounter (principal); X58.XXXA Exposure to other specified factors, initial encounter; Y93.9 Activity, unspecified; Y92.89 Other specified places as the place of occurrence of the external cause; Y99.9 Unspecified external cause status
CPT/HCPCS: 71101

== ENCOUNTER 2022-10-02 06:32 | Day surgery (SDC) | payer MEDICARE, SELFPAY ==
--- NOTE | 2022-10-01 10:11 | P.CONAN_ITS ---
Documented by User: Meg Tompkins NP 10/01/22 10:14 HPI - Anesthesia Eval Consult details Narrative: 67yo F for Upper Endoscopy with Balloon Dilitation PMFSH Active Problems Active Problems: All Active Problems (Updated 09/29/22 @ 12:41 by Karin Sainz, LIANG) Urinary tract infection (Acute) Breast asymmetry on examination (Acute) Neck pain (Acute) Hypertension (Acute) Anxiety (Acute) Degenerative disc disease, cervical (Acute) Epigastric pain (Acute) Gastritis and gastroduodenitis (Acute) Pancreatic abnormality (Acute) Annual physical exam (Acute) Sinusitis (Acute) Cough (Acute) COVID-19 (Acute) Recurrent chest pain (Acute) Dysphagia (Acute) Precordial chest pain (Acute) Preoperative cardiovascular examination (Acute) Esophageal dysmotility (Acute) Pain in finger of left hand (Acute) Swelling of finger joint of left hand (Acute) Contusion, chest wall (Acute) Impaired fasting glucose (Acute) Pure hypercholesterolemia (Acute) Benign essential hypertension (Acute) GERD (gastroesophageal reflux disease) (Acute) Dizziness (Acute) Cataract (Acute) Lumbar degenerative disc disease (Acute) Migraine (Acute) Mitral valve prolapse (Acute) Past Medical History Medical History Benign essential hypertension Cataract Dizziness GERD (gastroesophageal reflux disease) History of deep venous thrombosis (~2002) History of paroxysmal supraventricular tachycardia Impaired fasting glucose Lumbar degenerative disc disease Migraine Mitral valve prolapse Personal history of COVID-19 PONV (postoperative nausea and vomiting) Pure hypercholesterolemia Family History Family History Father Diabetes Hypertension Stroke Cardiovascular disease Mother Myocardial infarction Surgical History Surgical History History of colonoscopy (~06/28/15) History of esophagogastroduodenoscopy (EGD) History of surgery History of surgery (~2002) Social History Social History Housing: House Are you a primary healthcare interpreter to a significant other at home: No Do you presently have visiting nurse or other home services: No Alcohol intake: current Alcohol intake frequency: a few times a week Patient Tobacco Use Status: Former Tobacco user Quit Date: 1985 e-Cigarette/Vaping Use: Never Used Second Hand Smoke Exposure: Yes Use of substances other than those prescribed or required for medical reasons: No Have you been hit, kicked, punched, or otherwise hurt by someone within the past year? If so, by whom?: No Are you DNR?: No Advance Directives: No Advance Directives Information Provided: Yes Advance Directives on File: No Recently lost weight without trying: No Nutrition Risks: No Nutritional Risk Poor oral hygiene: No service: No Current occupational status: retired Cognitive needs: No Hearing needs: No Vision needs: Yes Meds Allergies Allergy/AdvReac Type Severity Reaction Status Date / Time oxycodone [From PERCOCET] Allergy Severe HIVES Verified 09/29/22 12:33 hydrocodone [From VICODIN] AdvReac Severe PASS Verified 09/29/22 12:33 OUT/VOMITING Monistat 1 Allergy Severe Rash Uncoded 09/29/22 12:33 Suprep Bowel Prep AdvReac Severe Nausea and Uncoded 09/29/22 12:33 Vomiting Home Medications Medication Instructions Recorded Confirmed Last Taken Type oxybutynin chloride 5 mg tablet 5 mg PO TID 02/06/20 09/29/22 Unknown History biotin 10 mg tablet 10 mg PO DAILY 02/08/20 09/29/22 Unknown History methenamine hippurate 1 gram tablet 1 g PO BID 02/08/20 09/29/22 Unknown History galcanezumab-gnlm 120 mg/mL mg subcut .[id number] 05/16/21 09/01/22 Unknown History subcutaneous pen injector (Emgality Pen) famotidine 40 mg tablet 40 mg PO BEDTIME 05/20/22 09/29/22 Unknown History cyclosporine 0.05 % eye drops in a drp ophthalmic (eye) 06/24/22 09/01/22 Unknown History dropperette Exam Exam Date and Time: October 01, 2022 1011 Height,Weight and Vital Signs: Height 5 ft 5 in Weight 81.647 kg Pertinent Lab Results Pertinent Lab Results: Laboratory Tests 10/16/21 04/17/22 08:28 08:03 WBC 5.0 Hgb 12.2 Hct 38.2 Plt Count 280 Sodium 143 Potassium 4.1 Chloride 106 Carbon Dioxide 27 BUN 19 H Creatinine 0.87 Narrative Narrative: EKG 05/2022 sinus rhythm at 77/Min; no significant ST-T changes and otherwise unremarkable.? Normal VA and corrected QT. ECHO 05/2022 Conclusions: - The left ventricular systolic function is normal.? The ? calculated ejection fraction is 66% by biplane method. ? - No obvious valvular pathology seen on this study.? ? Stress ECHO 06/2022 Protocol: JHONNY ? Max HR: 179 BPM? 115% of? Pred: 155 BPM Max BP: 150/062 mmHG Max Work Load: 7.2 METS ? Exercise stress ECHO using Jhonny protocol, total of 6 min 10 sec. METS 7.20 HR ?up to 115% of TAPHR and test was stopped, ECHO images taken immediately after. ?Definity contrast used.? EKG without arrhythmias no ischemic changes seen. ?Normotensive response to exercise.? Test reviewed with Dr. Matos. Assessment and Plan Assessment Anesthesia Assessment: Chart Reviewed Documented by User: Therese Nunes MD 10/02/22 07:58 PMF Past Medical History Medical History Benign essential hypertension Cataract Dizziness GERD (gastroesophageal reflux disease) History of deep venous thrombosis (~2002) History of paroxysmal supraventricular tachycardia Impaired fasting glucose Lumbar degenerative disc disease Migraine Mitral valve prolapse Personal history of COVID-19 PONV (postoperative nausea and vomiting) Pure hypercholesterolemia Family History Family History Father Diabetes Hypertension Stroke Cardiovascular disease Mother Myocardial infarction Surgical History Surgical History History of colonoscopy (~06/28/15) History of esophagogastroduodenoscopy (EGD) History of surgery History of surgery (~2002) History of Problems with Anesthesia: No Social History Social History Housing: House Are you a primary healthcare interpreter to a significant other at home: No Do you presently have visiting nurse or other home services: No Alcohol intake: current Alcohol intake frequency: a few times a week Patient Tobacco Use Status: Former Tobacco user Quit Date: 1985 e-Cigarette/Vaping Use: Never Used Second Hand Smoke Exposure: Yes Use of substances other than those prescribed or required for medical reasons: No Have you been hit, kicked, punched, or otherwise hurt by someone within the past year? If so, by whom?: No Are you DNR?: No Advance Directives: No Advance Directives Information Provided: Yes Advance Directives on File: No Recently lost weight without trying: No Nutrition Risks: No Nutritional Risk Poor oral hygiene: No service: No Current occupational status: retired Cognitive needs: No Hearing needs: No Vision needs: Yes Meds Allergies Allergy/AdvReac Type Severity Reaction Status Date / Time oxycodone [From PERCOCET] Allergy Severe HIVES Verified 09/29/22 12:33 hydrocodone [From VICODIN] AdvReac Severe PASS Verified 09/29/22 12:33 OUT/VOMITING Monistat 1 Allergy Severe Rash Uncoded 09/29/22 12:33 Suprep Bowel Prep AdvReac Severe Nausea and Uncoded 09/29/22 12:33 Vomiting Home Medications Medication Instructions Recorded Confirmed Last Taken Type oxybutynin chloride 5 mg tablet 5 mg PO TID 02/06/20 09/29/22 Unknown History biotin 10 mg tablet 10 mg PO DAILY 02/08/20 09/29/22 Unknown History methenamine hippurate 1 gram tablet 1 g PO BID 02/08/20 09/29/22 Unknown History galcanezumab-gnlm 120 mg/mL mg subcut .[id number] 05/16/21 09/01/22 Unknown History subcutaneous pen injector (Emgality Pen) famotidine 40 mg tablet 40 mg PO BEDTIME 05/20/22 09/29/22 Unknown History cyclosporine 0.05 % eye drops in a drp ophthalmic (eye) 06/24/22 09/01/22 Unknown History dropperette Exam Airway Mallampati Class: II TM Dist: >3cm Neck ROM: Full Loose/Missing/Broken Teeth: No Heart: RRR Lungs: CTA Assessment and Plan Assessment Anesthesia Assessment: Anesthesia Plan Discussed Final Anesthetic Review History of Problems with Anesthesia: No NPO: Yes ASA Class: III Final Preanesthetic Review: Meds/Allgs Chart Reviewed, Consent Obtained/Reviewed and Anes Risks/Benef Reviewed Patient Risk: Low Procedure Risk: Intermediate Anesthetic Plan Anesthetic Plan: MAC: Disposition: Standard PACU
[2022-10-02 06:43] VITALS: BP 142/84; PULSE 86; RESP 16; TEMP 36.4; O2SAT 98
[2022-10-02] MEDS: Lactated Ringers 1,000 ML 100 ML IVCONT (06:55)
--- NOTE | 2022-10-02 07:32 | MHC.SHP ---
Pre-Procedural Eval Section A Date of Service: 10/02/22 Section B Chief Complaint: Dysphagia, oropharyngeal phase Details of Present Illness: Off PPI x 1 week. PMH: Benign essential hypertension Cataract Dizziness GERD (gastroesophageal reflux disease) History of deep venous thrombosis (~2002) History of paroxysmal supraventricular tachycardia Impaired fasting glucose Lumbar degenerative disc disease Migraine Mitral valve prolapse Pure hypercholesterolemia Surgical History: History of colonoscopy (~06/28/15) History of surgery History of surgery (~2002) Allergies: Allergies Allergy/AdvReac Type Severity Reaction Status Date / Time oxycodone [From PERCOCET] Allergy Severe HIVES Verified 09/29/22 12:33 hydrocodone [From VICODIN] AdvReac Severe PASS Verified 09/29/22 12:33 OUT/VOMITING Monistat 1 Allergy Severe Rash Uncoded 09/29/22 12:33 Suprep Bowel Prep AdvReac Severe Nausea and Uncoded 09/29/22 12:33 Vomiting Review of Systems Review of Systems Comment: Ten point ROS negative except as above Exam Exam Comment: Gen appear: No acute distress HEENT: no icterus Chest: No overt resp distress Abd: soft, nontender, nondistended Psych: Stable affect, answering questions appropriately Neuro: A/Ox3 noted to move all extremities spontaneously Ext: no peripheral edema Plan Diagnosis/Plan: Unchanged I have reviewed the history and physical and performed a pertinent physical examination on my patient. No changes have occurred unless specified. Time Spent With Patient Time: Total time managing care of this patient today ____ minutes.
--- NOTE | 2022-10-02 07:33 | P.OP_ITS ---
Operative Note Operative Note Date of Service: 10/02/22 Narrative: Procedure: Esophagogastroduodenoscopy Endoscopist: Radha Casanova MD Indication: Dysphagia, chest pressure Anesthesia Provider: Kia Paul Anesthesia Type: MAC ?? EGD Procedure:?? The procedure, indications, preparation and potential complications were reviewed with the patient, who indicated understanding and gave written informed consent to proceed. A physical exam was performed. The endoscope was introduced through the mouth, and advanced to the second part of duodenum. The mucosa was carefully examined on slow withdrawal of the endoscope. The patient tolerated the procedure well. There were no immediate complications.? ? EGD Findings:? * Esophagus:? Normal mucosa noted in the entire esophagus. The Z line was at 40 cm. No overt narrowing or stricture noted on endoscopic evaluation. Middle and lower esophagus forceps biopsies were obtained to rule out eosinophilic esophagitis. * Stomach:? Normal mucosa was noted in the stomach. * Duodenum:? Normal mucosa was noted in the whole of the examined duodenum. Additional intervention: A soft tip Savary wire was introduced through the biopsy channel and advanced to the antrum. The gastroscope was then backed out through the mouth. A Savary Brandin bougie was advanced over the guidewire and the esophagus was incrementally dilated from 18 mm to 19 mm. There was significant resistance at 19 mm. On relook with the endoscope, a superficial tear with heme was noted as 14 cm representing successful dilatation at the level of cricopharyngeus. ? EGD Impressions:? * Normal esophagus (biopsy, dilation) * Normal stomach * Normal duodenum ?? Recommendations:?? * Follow biopsy results. Our office will call or send a letter with results within 7-10 days. * Depending on response to today's dilation, patient can call for repeat EGD with dilation on return of symptoms p.r.n. * Avoid NSAIDs. Above has been reviewed with the patient. Relevant educational hand outs were provided at discharge. ?
[2022-10-02 07:59] VITALS: BP 121/76; PULSE 88; RESP 16; TEMP 36.2; O2SAT 95
[2022-10-02 08:14] VITALS: BP 135/77; PULSE 79; RESP 16; TEMP 36.2; O2SAT 98
== END 2022-10-02 09:04 | disposition home or self-care (01) ==
PROVIDERS: PCP Internal Medicine; Visit Provider Internal Medicine
PROC: (CPT 43248; principal; 2022-10-02 07:30)
DX: R13.12 Dysphagia, oropharyngeal phase (principal); K22.2 Esophageal obstruction; R07.89 Other chest pain; K22.4 Dyskinesia of esophagus; K21.9 Gastro-esophageal reflux disease without esophagitis; I10 Essential (primary) hypertension; E78.00 Pure hypercholesterolemia, unspecified; I34.1 Nonrheumatic mitral (valve) prolapse; R73.01 Impaired fasting glucose; R42 Dizziness and giddiness; G43.909 Migraine, unspecified, not intractable, without status migrainosus; Z79.899 Other long term (current) drug therapy; Z88.8 Allergy status to other drugs, medicaments and biological substances; Z86.718 Personal history of other venous thrombosis and embolism; Z98.890 Other specified postprocedural states; Z87.891 Personal history of nicotine dependence
CPT/HCPCS: 43248; 43239; 88305; 88312; C1769; J2250

== ENCOUNTER → 2022-10-13 09:04 | Outpatient (BNVA) | payer MEDICARE, SELFPAY | PROVIDERS: PCP Internal Medicine; Visit Provider Internal Medicine | DX: Z12.11 Encounter for screening for malignant neoplasm of colon (principal); R07.9 Chest pain, unspecified; R13.10 Dysphagia, unspecified | CPT/HCPCS: 99212 ==

== ENCOUNTER 2022-11-07 08:06 | Outpatient (REF) | payer MEDICARE, SELFPAY ==
[2022-11-07 08:28] LABS: MANUAL DIFF FLAG NO
[2022-11-07 09:00] LABS: Basophils Percent Auto 0.3 % (0-2); Eosinophils Absolute Auto 0.1 X10*3/uL (0.0-0.4); Eosinophils Percent Auto 2.2 % (0-4); Hematocrit 39.8 % (37.0-47.0); Hemoglobin 12.7 g/dl (12.0-16.0); Imm Gran Abs Auto 0.01 X10*3/uL (0.00-0.03); Imm Gran Pct Auto 0.2 % (0.0-0.4); Lymphocytes Absolute Auto 2.2 X10*3/uL (1.2-4.9); Lymphocytes Percent Auto 33.7 % (20-40); Mean Corpuscular HGB Conc 31.9 g/dl (31.0-35.0); Mean Corpuscular Hemoglobin 29.1 pg (27.0-33.0); Mean Corpuscular Volume 91.3 fL (80.0-98.0); Mean Platelet Volume 9.7 fL (9.4-12.3); Monocytes Absolute Auto 0.4 X10*3/uL (0.1-1.2); Monocytes Percent Auto 6.7 % (2-11); Neutrophils Absolute Auto 3.7 x10*3/uL (2.0-8.3); Neutrophils Percent Auto 56.9 % (45-73); Platelet Count 265 X10*3/uL (160-400); Red Blood Count 4.36 X10*6/uL (4.20-5.50); Red Cell Distribution Width 13.8 % (11.0-16.0); White Blood Count 6.4 X10*3/uL (4.8-10.8)
[2022-11-07 09:39] LABS: Alanine Aminotransferase 21 U/L (0-31); Albumin Level 4.4 g/dL (3.5-5.0); Alkaline Phosphatase 74 U/L (39-117); Anion Gap 19 (12-20); Aspartate Amino Transferase 24 U/L (5-31); Bilirubin Total 0.7 mg/dL (0.0-1.0); Blood Urea Nitrogen 20 mg/dL (9-16); Calcium 10.2 mg/dL (8.4-10.2); Carbon Dioxide 22 mmol/L (22-29); Chloride 106 mmol/L (96-108); Cholesterol 179 mg/dL; Estimated Glomerular Filt Rate > 60; Glucose Fasting 98 mg/dL (60-99); HDL Cholesterol 75 mg/dL; LDL Cholesterol Calculated 84 mg/dl; Potassium 3.9 mmol/L (3.3-5.1); Sodium 143 mmol/L (135-145); Total Protein 7.4 g/dL (6.5-8.0); Triglycerides 102 mg/dL
[2022-11-07 09:51] LABS: Appearance Urine Cloudy; Color Urine Yellow; Glucose Urine UA Negative (Negative); Leukocyte Esterase Urine Small (1+) (Negative); Nitrite Urine Negative (Negative); PH 5.5 (5.0-9.0); UMIC TRIGGER UACC YES; Urine Blood Negative (Negative); Urine Ketones Negative (Negative); Urine Protein Negative (Neg-Trace)
[2022-11-07 09:54] LABS: Bacteria Urine None Seen (None Seen); Hyaline Casts Urine 0-2 /LPF (0-2); RBC Urine 0-2 /HPF (0-2); UACC Culture Trigger YES
[2022-11-07 10:04] LABS: TSH reflex Free T4 1.79 uIU/mL (0.32-4.0); Vitamin D 25-OH Total 40.2 ng/mL (>30)
== END 2022-11-07 08:07 | disposition home or self-care (01) ==
LOC: HO.LAB 08:06
PROVIDERS: PCP Internal Medicine; Visit Provider Internal Medicine
DX: E78.00 Pure hypercholesterolemia, unspecified (principal); E55.9 Vitamin D deficiency, unspecified; I10 Essential (primary) hypertension; R30.0 Dysuria
CPT/HCPCS: 36415; 80053; 80061; 81001; 82306; 84443; 85025; 87086

== ENCOUNTER 2022-11-14 08:59 | Outpatient (AMB) | payer MEDICARE, SELFPAY ==
[2022-11-14 09:04] VITALS: BP 118/78; PULSE 79; O2SAT 98
--- NOTE | 2022-11-14 09:04 | A.OFFPC_ITS ---
Vital Signs 11/14/22 09:04 Height 5 ft 5 in Weight 180 lb BMI 30.0 BMI Reason not done Patient refused/unable BP 118/78 Blood Pressure Location Lt brachial Position Sitting Pulse 79 Pulse Source Pulse Oximeter Pulse Oximetry (%) 98 Oxygen Delivery Method Room Air Intake Visit Reasons: Annual Exam Research Methodologist Required: No Accompanied by: Self / Same As Patient Allergies oxycodone [From PERCOCET] Allergy (Severe, Verified 11/14/22 09:11) HIVES hydrocodone [From VICODIN] Adverse Reaction (Severe, Verified 11/14/22 09:11) PASS OUT/VOMITING Monistat 1 Allergy (Severe, Uncoded 11/14/22 09:11) Rash Suprep Bowel Prep Adverse Reaction (Severe, Uncoded 11/14/22 09:11) Nausea and Vomiting Medication List - Last Reconciled 11/14/22 by Bryon Ding MD atorvastatin 10 mg PO BEDTIME 90 days biotin 1,000 mg PO DAILY cyclosporine 0.05% drps ophthalmic (eye) galcanezumab-gnlm (Emgality Pen) mg subcut .v0osrhn hydrochlorothiazide 12.5 mg PO DAILY 90 days methenamine hippurate 1 g PO BID oxybutynin chloride 5 mg PO TID pantoprazole 40 mg PO DAILY 90 days [wedge pillow As directed] Tobacco use date assessed: 11/14/22 Fall risk assessment: No Falls in past year Last assessed Fall Risk: 11/14/22 Dental Screening Dental Screen Date: 11/14/22 Did you have a dental visit in the last 12 months?: Yes Did you have a dental problem in the last 6 months where you did not have access to dental care?: No Was dental information given to patient?: Patient has dentist HPI Annual Exam HPI Details Patient comes in today for her annual physical examination States that she feels okay She denies any headaches or dizziness - states that her migraine headaches have been well-controlled lately Denies any chest pains, no SOB No nausea/vomiting, no abdominal pain No change in bowel habits noted Denies any acute urinary symptoms Relates that she is still experiencing recurrent pain in both of her hands, worse in the left hand, and that she recently experienced some sharp pains and spasms in her left hand and fingers that radiated up into her elbow when she tried to reach for something with her hand a few days ago States that the pain and spasms lasted for a few minutes Did not go for her hand x-rays when the x-rays were ordered a few months ago and would like to see of she can get them done now Had her follow up labs done last week - to discuss her results She had her screening colonoscopy done back in 2015 and will be due for repeat in 2025 Had her annual mammogram done back in April 2022 at [facility] States that she is up-to-date with her 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 [facility] Medical History (Updated 11/14/22 @ 09:58 by Bryon Ding MD) Benign essential hypertension Cataract Dizziness GERD (gastroesophageal reflux disease) GERD with esophagitis History of deep venous thrombosis (~2002) History of paroxysmal supraventricular tachycardia Impaired fasting glucose Lumbar degenerative disc disease Migraine Mitral valve prolapse Obesity (BMI 30-39.9) Personal history of COVID-19 PONV (postoperative nausea and vomiting) Pure hypercholesterolemia Surgical History (Updated 11/14/22 @ 09:20 by Bryon Ding MD) History of colonoscopy (~06/28/15) History of esophagogastroduodenoscopy (EGD) History of surgery History of surgery (~2002) Family History Father Diabetes Hypertension Stroke Cardiovascular disease Mother Myocardial infarction Social History Housing: House Are you a primary home health care respiratory therapist to a significant other at home: No Do you presently have visiting nurse or other home services: No Alcohol intake: current Alcohol intake frequency: a few times a week Patient Tobacco Use Status: Former Tobacco user Quit Date: 1985 e-Cigarette/Vaping Use: Never Used Second Hand Smoke Exposure: Yes service: No Current occupational status: retired Cognitive needs: No Hearing needs: No Vision needs: Yes Questionnaire PHQ-9 Over the last 2 weeks, how often have you been bothered by any of the following problems? 1. Little interest or pleasure in doing things: not at all 2. Feeling down, depressed, or hopeless: not at all 3. Trouble falling or staying asleep, or sleeping too much: not at all 4. Feeling tired or having little energy: not at all 5. Poor appetite or overeating: not at all 6. Feeling bad about yourself - or that you are a failure or have let yourself or your family down: not at all 7. Trouble concentrating on things, such as reading the newspaper or watching television: not at all 8. Moving or speaking so slowly that other people could have noticed. Or the opposite - being so fidgety or restless that you have been moving around a lot more than usual: not at all 9. Thoughts that you would be better off or of hurting yourself in some way: not at all Total score: 0 Depression Screening Interpretation: Negative [id number] - PHQ-9 Billing: Yes Source: Developed by Drs. Stephen Muoñz, Maren Peters, Kun Salas and colleagues, with an educational maria g from [employer]. Thrive Questionnaire Date Thrive assessed: 11/14/22 I am a: Patient What is your living situation today?: I have a steady place to live Within the past 12 months, did the food you bought not last and you didn't have the money to get more?: Never true Within the past 12 months, did you worry whether your food would run out before you got money to buy more?: Never true Do you have trouble paying for medicines?: No Do you have trouble getting transportation to medical appointments?: No Do you have trouble paying your heating and electricity bill?: No Do you have trouble taking care of your child, family member or friend?: No Do you have trouble with day-to-day activities such as bathing, preparing meals, shopping, managing finances, etc.?: No Are you currently unemployed and looking for a job?: No Are you interested in more education?: No Please select the resources that you would like help with: None Currently or been in a relationship where the following occur: no concerns reported AUDIT C Alcohol Use Questionnaire (AUDIT-C) 1. How often do you have a drink containing alcohol?: 2-3 times a week 2. How many drinks containing alcohol do you have on a typical day when you are drinking?: 1 or 2 3. How often do you have six or more drinks on one occasion?: Never Total Score: 3 Score Reviewed/Action Taken: Yes MILO-7 AMB Questionnaire MILO-7 Date MILO - 7 assessed: 11/14/22 Feeling nervous, anxious, or on edge: 0 = Not at all Not being able to stop or control worryin = Not at all Worrying too much about different things: 0 = Not at all Trouble relaxin = Not at all Being so restless that it is hard to sit still: 0 = Not at all Becoming easily annoyed or irritable: 0 = Not at all Feeling afraid as if something awful might happen: 0 = Not at all Total MILO-7 score (0-4 normal; 5-9 mild; 10-14 moderate; 15-21 severe): 0 Source: Developed by Drs. Stephen Muñoz, Maren Peters, Kun Salas and colleagues, with an educational maria g from [employer]. Review of Systems Const Denies chills, Denies fatigue, Denies fever(s), Denies headache(s) and Denies malaise Eyes Denies blurry vision, Denies change in vision, Denies irritation and Denies itchy eyes ENT Denies dysphagia, Denies dizziness, Denies otalgia, Denies headache(s), Denies nasal congestion, Reports neck pain (on and off), Denies odynophagia, Denies sinus pain and Denies sore throat Card Denies chest pain, Denies rapid heart rate, Denies irregular heart rhythm, Denies palpitations and Denies dyspnea Resp Denies chest congestion, Denies cough, Denies dyspnea and Denies wheezing GI Denies abdominal pain, Denies bloating, Denies constipation, Denies dysphagia, Denies heartburn, Denies diarrhea, Denies nausea, Denies odynophagia and Denies vomiting Denies hematuria, Denies urinary frequency, Denies dysuria, Denies urinary incontinence and Denies urinary urgency Musc Denies back pain, Reports arthralgias (in both hands/fingers, recurrent; worse in the left hand), Denies joint swelling, Denies muscle weakness and Reports neck pain (on and off) Skin/Breast Denies breast pain, Denies breast mass, Denies change in pigmentation, Denies lesions, Denies rash and Denies unusual bruising Neuro Denies dizziness, Denies headache(s) and Denies paresthesias Psych Denies anxiety and Denies depression Endo Denies fatigue and Denies palpitations Kevin/Lymph Denies easy bruising Aller/Immun Denies itchy eyes and Denies wheezing Physical exam (Primary Care) Vital Signs: Last Vital Signs Pulse 79 11/14/22 09:04 BP 118/78 11/14/22 09:04 Pulse Ox 98 11/14/22 09:04 Oxygen Delivery Method Room Air 11/14/22 09:04 Tobacco/Smoking Status: Tobacco use Status Tobacco use date assessed 11/14/22 11/14/22 09:09 Patient Tobacco Use Status Former Tobacco user 11/14/22 09:09 e-Cigarette/Vaping Use Never Used 11/14/22 09:09 PHQ-9: PHQ-9 Score PHQ-9: Total score 0 11/14/22 09:09 Depression Screening Interpretation: Negative Thrive Assessment: Date of Thrive Assessment Date Thrive assessed 11/14/22 11/14/22 09:09 Currently or been in a relationship where the following occur: no concerns reported Const General: no acute distress, alert and awake Orientation/consciousness: patient oriented x3 HENMT Head: Yes normocephalic and Yes atraumatic Ears: external ears normal, TM's normal bilaterally and EAC's normal General nose exam: No nasal discharge present Face and sinus: Yes normal facial exam and Yes sinuses nontender Teeth and gingiva: dentition normal Throat: Yes posterior oropharynx normal and Yes tonsils normal (no TP congestion) Eyes Eyelids: Yes eyelids normal Conjunctivae: conjunctivae normal Pupils: Equal, round and reactive pupils present EOM: EOMs intact bilaterally Neck Neck: Yes no lymphadenopathy and Yes supple Thyroid: Thyroid normal Resp Auscultation: clear to auscultation bilaterally, no rales and no wheezes Cardio Rate: regular rate Rhythm: regular rhythm Heart sounds: no murmurs GI Palpation (GI): Soft to palpation, nontender and No hepatosplenomegaly present Auscultation: normal bowel sounds General: Yes no CVA tenderness Back/Spine/Pelvis Back: no CVA tenderness Cervical Spine: Cervical spine tenderness (minimal) Thoracic/Lumbar Spine: thoracic and lumbar spine normal to inspection Skin Lesions: no lesions Rashes: no rashes Neuro General: patient oriented x3, moves all extremities, no focal motor deficits and CN's II-XI intact bilaterally Cranial nerves: Yes Equal, round and reactive pupils present Cognition (Neuro): normal cognition Gait exam (Neuro): Normal gait present Extrem General: Yes no clubbing, cyanosis or edema Results Reviewed Results Reviewed: Laboratory Tests 11/07/22 11/07/22 11/07/22 08:21 08:25 08:25 WBC 6.4 Hgb 12.7 Hct 39.8 Plt Count 265 Sodium 143 Potassium 3.9 Creatinine 0.86 Estimated GFR > 60 Fasting Glucose 98 Calcium 10.2 AST 24 ALT 21 Triglycerides 102 Cholesterol 179 LDL Cholesterol, Calc 84 HDL Cholesterol 75 25-OH Vitamin D Total 40.2 TSH 1.79 Ur Specific [place] 1.020 Urine Protein Negative Urine Glucose (UA) Negative Urine Blood Negative Assessment and Plan Assessment & Plan (1) Annual physical exam: Code(s): Z00.00 - Encounter for general adult medical examination without abnormal findin gs Plan: Results of her labs done last week reviewed and discussed with patient She had her screening colonoscopy done with Dr. Burk back in 2015 - was recommended to get a repeat colonoscopy in 10 years (due in 2025) States that she is up-to-date with her yearly pap smear/environmental engineering intern exam (2) Pure hypercholesterolemia: Code(s): E78.00 - Pure hypercholesterolemia, unspecified Plan: Advised that her cholesterol levels have improved significantly from previous Reinforced low cholesterol diet Continue Atorvastatin 10 mg QD Will recheck fasting lipids and labs in 6 months for follow up (3) Benign essential hypertension: Code(s): I10 - Essential (primary) hypertension Plan: Reinforced low sodium diet - goal is systolic BP of at least 130 mm or less Continue HCTZ 12.5 mg QD Have tried switching her over to Valsartan 80 mg QD in the past but she could not tolerate Rx Patientis again instructed to continue monitoring her blood pressure regularly (4) Paroxysmal SVT (supraventricular tachycardia): Code(s): I47.1 - Supraventricular tachycardia Plan: States that she still has occasional brief sensations of tachycardia and heart racing but these are never associated with any SOB, dizziness/lightheadedness or chest pains Patient just had echocardiogram and stress echo done back in June 2022 - both tests came out normal Advised to call if these symptoms progress/get worse or start to occur more frequently - will need further work ups then, including Holter and/or cardiac event monitor (5) Impaired fasting glucose: Code(s): R73.01 - Impaired fasting glucose Plan: HgbA1c was normal at 5.2% when checked previously; FBS was normal at 98 mg/dl on her recent labs Reinforced low calorie diet/exercise as tolerated (6) Migraine: Code(s): G43.909 - Migraine, unspecified, not intractable, without status migrainosus Qualifiers: Migraine type: without aura Status migrainosus presence: with status migrainosus Intractability: intractable Qualified Code(s): G43.011 - Migraine without aura, intractable, with status migrainosus Plan: States that her migraine headaches appear to be better controlled since she was started on Emgality injections monthly by neurology; did have some local skin reactions to the injection initially but these have since resolved Continue Emgality injections monthly and Sumatriptan 100 mg PRN as instructed Reinforced avoidance of migraine triggers Follow up with neurology as scheduled (7) Neck pain: Code(s): M54.2 - Cervicalgia Plan: Cervical spine x-rays done last year in May 2021 revealed (+) mild cervical spine degenerative disc disease States that her neck pain has improved slightly with physical therapy and she continues to do the exercises she was taught regularly (8) GERD with esophagitis: Code(s): K21.00 - Gastro-esophageal reflux disease with esophagitis, without bleeding Qualifiers: Esophagitis bleeding: without hemorrhage Qualified Code(s): K21.00 - Gastro-esophageal reflux disease with esophagitis, without bleeding Plan: Reinforced dietary restrictions EGD done in September 2022 revealed findings consistent with active esophagitis She also 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, with resolution of her previous dysphagia Continue Pantoprazole 40 mg QD x 4 weeks, then can try to taper off per previous instructions from GI Patient is advised that she can go back on the Rx at any time if she starts experiencing any flare up of her GI symptoms (9) Bilateral hand pain: Code(s): M79.641 - Pain in right hand; M79.642 - Pain in left hand Plan: Will send patient for x-rays of BOTH hands KATHIE for further evaluation Discussed that her hand symptoms are most likely due to degenerative arthritis (10) Obesity (BMI 30-39.9): Code(s): E66.9 - Obesity, unspecified Plan: Reinforced diet/exercise as tolerated/lose weight Patient discussed her frustrations about how hard it is to lose weight; can consider referring her to weight management later on if she is not able to lose any significant amount of weight on her own over the next few months Plan Follow up in 6 months Orders: Orders XR hand LT min 3V Today M79.641 - Pain in right hand, M79.642 - Pain in left hand XR hand RT min 3V Today M79.641 - Pain in right hand, M79.642 - Pain in left hand Comprehensive [place]. Panel Fast 6 Months E78.00 - Pure hypercholesterolemia, unspecified Lipid Panel 6 Months E78.00 - Pure hypercholesterolemia, unspecified TSH reflex Free T4 6 Months E78.00 - Pure hypercholesterolemia, unspecified Complete Blood Count Auto Diff 6 Months I10 - Essential (primary) hypertension UA CC w/rflx Micro + Cult 6 Months R30.0 - Dysuria Medications: Discontinued pantoprazole STOP Omeprazole 20 mg 40 mg PO BID 90 days 180 tabs 3RF Coding Level of Care Code Est Pt Prev Care >65y(25355) Diagnoses Annual physical exam Z00.00 Pure hypercholesterolemia E78.00 Benign essential hypertension I10 Paroxysmal SVT (supraventricular tachycardia) I47.1 Impaired fasting glucose R73.01 Migraine G43.011 Migraine type: without aura Status migrainosus presence: with status migrainosus Intractability: intractable Neck pain M54.2 GERD with esophagitis K21.00 Esophagitis bleeding: without hemorrhage Bilateral hand pain M79.641; M79.642 Obesity (BMI 30-39.9) E66.9
== END 2022-11-14 09:52 | disposition home or self-care (01) ==
PROVIDERS: PCP Internal Medicine; Visit Provider Internal Medicine
DX: Z00.00 Encounter for general adult medical examination without abnormal findings (principal); I10 Essential (primary) hypertension; I47.1 Supraventricular tachycardia; E78.00 Pure hypercholesterolemia, unspecified; R73.01 Impaired fasting glucose; M54.2 Cervicalgia; K21.00 Gastro-esophageal reflux disease with esophagitis, without bleeding; M79.641 Pain in right hand; M79.642 Pain in left hand; E66.9 Obesity, unspecified
CPT/HCPCS: 99397

== ENCOUNTER 2022-11-15 11:59 | Outpatient (AMB) | payer MEDICARE, SELFPAY ==
--- NOTE | 2022-11-15 12:31 | AM.OFFWIN_ITS ---
Intake Vital Signs 11/15/22 12:33 BP 110/68 Blood Pressure Location Rt brachial Position Sitting Pulse 75 Pulse Source Pulse Oximeter Temp 98.2 F Temp Source Oral Pulse Oximetry (%) 97 Oxygen Delivery Method Room Air Intake Visit Reasons: Rt eye issue Intake Note: Pt is here today c/o Rt eye swollen Patient Tobacco Use Status: Former Tobacco user Quit Date: 1985 Allergies oxycodone [From PERCOCET] Allergy (Severe, Verified 11/15/22 12:47) HIVES hydrocodone [From VICODIN] Adverse Reaction (Severe, Verified 11/15/22 12:47) PASS OUT/VOMITING Monistat 1 Allergy (Severe, Uncoded 11/15/22 12:47) Rash Suprep Bowel Prep Adverse Reaction (Severe, Uncoded 11/15/22 12:47) Nausea and Vomiting Medication List - Last Reconciled 11/15/22 by Yoana Muniz CNP atorvastatin 10 mg PO BEDTIME 90 days biotin 1,000 mg PO DAILY cyclosporine 0.05% drps ophthalmic (eye) galcanezumab-gnlm (Emgality Pen) mg subcut .[id number] hydrochlorothiazide 12.5 mg PO DAILY 90 days methenamine hippurate 1 g PO BID oxybutynin chloride 5 mg PO TID pantoprazole 40 mg PO DAILY 90 days [wedge pillow As directed] HPI HPI Comments History of Present Illness Details 67-year-old female presents today for complaint of right eye swollen and painful x 7 days, wakes up with yellowish green crusty discharge, and feels like she has something in her eye. She denies fever, chills, recent virus, CP, SOB, blurred vision, photophobia, headache, dizziness, abdominal pain, nausea, vomiting, changes in bowels or bladder. [facility] Medical History (Updated 11/15/22 @ 18:28 by Yoana Muniz CNP) Benign essential hypertension Cataract Dizziness GERD (gastroesophageal reflux disease) GERD with esophagitis History of deep venous thrombosis (~2002) History of paroxysmal supraventricular tachycardia Impaired fasting glucose Lumbar degenerative disc disease Migraine Mitral valve prolapse Obesity (BMI 30-39.9) Personal history of COVID-19 PONV (postoperative nausea and vomiting) Pure hypercholesterolemia Surgical History (Updated 11/14/22 @ 09:20 by Bryon Ding MD) History of colonoscopy (~06/28/15) History of esophagogastroduodenoscopy (EGD) History of surgery History of surgery (~2002) Family History Father Diabetes Hypertension Stroke Cardiovascular disease Mother Myocardial infarction Social History Housing: House Are you a primary progressive care manager to a significant other at home: No Do you presently have visiting nurse or other home services: No Alcohol intake: current Alcohol intake frequency: a few times a week Patient Tobacco Use Status: Former Tobacco user Quit Date: 1985 e-Cigarette/Vaping Use: Never Used Second Hand Smoke Exposure: Yes service: No Current occupational status: retired Cognitive needs: No Hearing needs: No Vision needs: Yes Review of Systems Const All systems reviewed & are unremarkable except as noted in HPI and below Physical Exam Vital Signs: Last Vital Signs Temp 98.2 F 11/15/22 12:33 Pulse 75 11/15/22 12:33 BP 110/68 11/15/22 12:33 Pulse Ox 97 11/15/22 12:33 Oxygen Delivery Method Room Air 11/15/22 12:33 Const General: healthy appearing and no acute distress Nutritional Appearance: well nourished Orientation/consciousness: patient oriented x3 Limitations: no limitations HEENT Head: Yes normocephalic and Yes atraumatic Ears: hearing grossly normal bilaterally General nose exam: Normal nasal mucous membranes and turbinates present Face and sinus: Yes sinuses nontender Mouth: Normal oral and palatal mucosa present Throat: Yes posterior oropharynx normal Eyes Eyelids: Yes eyelid abnormality (right upper lid edematous) Conjunctivae: conjunctival abnormal right discharge purulent Neck Neck: Yes normal visual inspection, Yes no lymphadenopathy and Yes supple Resp Effort & Inspection: normal respiratory effort, no cough, no respiratory distress and not tachypneic Auscultation: clear to auscultation bilaterally Cardio Rate: regular rate Rhythm: regular rhythm Heart sounds: S1 normal heart sound present and S2 normal heart sound present Peripheral pulses: Peripheral pulses 2+ throughout GI Palpation (GI): Soft to palpation and nontender Auscultation: normal bowel sounds Neuro General: patient oriented x3, gait normal and moves all extremities Extrem General: Yes normal to inspection, Yes full ROM, Yes capillary refill normal and Yes no clubbing, cyanosis or edema Psych Appearance: well kempt Mental Status: mental status grossly normal Speech and movement: Normal speech and movement present Affect: normal affect Attitude: cooperative Assessment & Plan Assessment & Plan (1) Blepharitis of both upper and lower eyelid of right eye: Code(s): H01.00A - Unspecified blepharitis right eye, upper and lower eyelids Qualifiers: Blepharitis type: unspecified type Qualified Code(s): H01.00A - Unspecified blepharitis right eye, upper and lower eyelids Plan: 67-year-old female seen today for complaint of right eye pain, swollen upper and lower eyelid with associated conjunctivitis. Will treat with Erythromycin ophthalmic right eye bid x 5 days Prednisolone acetate 1% 1 gtt tid prn x 7 days Encouraged to follow up with PCP; or return to office for worsening or unresolved symptoms Medications: New erythromycin right eye 0.5 inches ophthalmic (eye) BID 3.5 grams 0RF H01.00A - Unspecified blepharitis right eye, upper and lower eyelids Discontinued pantoprazole STOP Omeprazole 20 mg 40 mg PO BID 90 days 180 tabs 3RF Coding Level of Care Code Est Pt Level 3 (23848) Diagnoses Blepharitis of both upper and lower eyelid of right eye H01.00A Blepharitis type: unspecified type
[2022-11-15 12:33] VITALS: BP 110/68; PULSE 75; TEMP 36.8; O2SAT 97
== END 2022-11-15 12:59 | disposition home or self-care (01) ==
PROVIDERS: PCP Internal Medicine; Visit Provider Nurse Practitioner Acute Care
DX: H01.00A Unspecified blepharitis right eye, upper and lower eyelids (principal)
CPT/HCPCS: 99213

== ENCOUNTER 2022-12-11 13:25 | Outpatient (REF) | payer MEDICARE, SELFPAY ==
--- NOTE | ~2022-12-11 | XR_ITS ---
EXAMINATION: XR HAND, RIGHT XR HAND, LEFT CLINICAL INFORMATION: Bilateral hand pain COMPARISON: Right hand 03/04/2013 TECHNIQUE: PA, lateral, and oblique views of each hand and PA, lateral, and oblique views of each wrist. FINDINGS: Mineralization is normal. There is no fracture or dislocation. There is mild joint space narrowing and minimal marginal osteophyte formation in the distal interphalangeal joints bilaterally, greater on the right. The other joint spaces are preserved. There are no bony erosive changes. No soft tissue swelling is seen. 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
--- NOTE | ~2022-12-11 | XR_ITS ---
EXAMINATION: XR HAND, RIGHT XR HAND, LEFT CLINICAL INFORMATION: Bilateral hand pain COMPARISON: Right hand 03/04/2013 TECHNIQUE: PA, lateral, and oblique views of each hand and PA, lateral, and oblique views of each wrist. FINDINGS: Mineralization is normal. There is no fracture or dislocation. There is mild joint space narrowing and minimal marginal osteophyte formation in the distal interphalangeal joints bilaterally, greater on the right. The other joint spaces are preserved. There are no bony erosive changes. No soft tissue swelling is seen. 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
== END 2022-12-11 13:26 | disposition home or self-care (01) ==
LOC: HO.HMGCX 13:25
PROVIDERS: PCP Internal Medicine; Visit Provider Internal Medicine
DX: M79.641 Pain in right hand (principal); M79.642 Pain in left hand
CPT/HCPCS: 73130

== ENCOUNTER 2023-03-02 21:29 | Emergency (ER) | payer MEDICARE, SELFPAY ==
--- NOTE | ~2023-03-02 | CT_ITS ---
EXAMINATION: CT facial bones wo IV con, CT head/brain wo IV con INDICATION INFORMATION: Reason for Exam ? fx COMPARISON: CT head without contrast 07/01/2021 TECHNIQUE: Separate noncontrast CT examinations of the head and face were performed. Coronal and sagittal images were created for each examination at the technologist workstation. This CT examination was performed using dose optimization techniques as appropriate, variously including the following: *Automated exposure control *Adjustment of mA and/or kV according to patient size (this includes techniques or standardized protocols for targeted exams where dose is matched to indication/reason for exam; i.e. extremities or head) *Use of iterative reconstruction technique DLP: 815 mGy-cm FINDINGS: Head: No acute osseous or soft tissue abnormality. The mastoid air cells are clear. There is no evidence of acute intracranial hemorrhage or territorial infarction. No abnormal mass effect or midline shift is seen. Dc to white matter differentiation is well preserved. No extra-axial fluid collections are identified. No hydrocephalus. No significant volume loss. There is no abnormal attenuation within the brain parenchyma. Facial Bones: There is no evidence of an acute facial bone fracture. The paranasal sinuses are well aerated. No significant dental disease is visualized. The orbits are unremarkable in appearance. CT/CT facial bones wo IV con IMPRESSION: 1. No acute intracranial abnormality. 2. No facial fracture.
--- NOTE | ~2023-03-02 | CT_ITS ---
EXAMINATION: CT facial bones wo IV con, CT head/brain wo IV con INDICATION INFORMATION: Reason for Exam ? fx COMPARISON: CT head without contrast 07/01/2021 TECHNIQUE: Separate noncontrast CT examinations of the head and face were performed. Coronal and sagittal images were created for each examination at the technologist workstation. This CT examination was performed using dose optimization techniques as appropriate, variously including the following: *Automated exposure control *Adjustment of mA and/or kV according to patient size (this includes techniques or standardized protocols for targeted exams where dose is matched to indication/reason for exam; i.e. extremities or head) *Use of iterative reconstruction technique DLP: 815 mGy-cm FINDINGS: Head: No acute osseous or soft tissue abnormality. The mastoid air cells are clear. There is no evidence of acute intracranial hemorrhage or territorial infarction. No abnormal mass effect or midline shift is seen. Dc to white matter differentiation is well preserved. No extra-axial fluid collections are identified. No hydrocephalus. No significant volume loss. There is no abnormal attenuation within the brain parenchyma. Facial Bones: There is no evidence of an acute facial bone fracture. The paranasal sinuses are well aerated. No significant dental disease is visualized. The orbits are unremarkable in appearance. CT/CT head/brain wo IV con IMPRESSION: 1. No acute intracranial abnormality. 2. No facial fracture.
[2023-03-02 21:32] VITALS: BP 154/76; PULSE 74; RESP 16; TEMP 36.3; O2SAT 98
--- NOTE | 2023-03-02 22:37 | PC.NURSE ---
pt from home. a&ox3, respirations even and unlabored. pt reports she was taking her trash outside about one hour ago when she tripped and fell onto her face. pt now reporting headache, face pain, nose pain, and neck pain at this time. pt reports previously having a bloody nose which is now controlled. pt noted to have swollen top lip. pt neuro assessment in tact.
--- NOTE | 2023-03-02 23:04 | ED.HEATRA ---
HPI - Head Injury General Chief complaint: Head Injury Stated complaint: fell hit face Time Seen by Provider: 03/02/23 22:34 History of Present Illness HPI Narrative: patient is 67 years old status post accidental fall hitting her face against the ground patient tripped over a manhole. He is not on any blood thinners. No nausea no vomiting. No focal weakness. Related Data Home Medications Medication Instructions Recorded Confirmed oxybutynin chloride 5 mg tablet 5 mg PO TID 02/06/20 11/14/22 methenamine hippurate 1 gram tablet 1 g PO BID 02/08/20 11/14/22 galcanezumab-gnlm 120 mg/mL mg subcut .[id number] 05/16/21 11/14/22 subcutaneous pen injector (Emgality Pen) cyclosporine 0.05 % eye drops in a drp ophthalmic (eye) 06/24/22 11/14/22 dropperette biotin 10 mg tablet 1,000 mg PO DAILY 10/13/22 11/14/22 Previous Rx's Medication Instructions Recorded wedge pillow #1 ea 02/18/22 pantoprazole 40 mg tablet,delayed 40 mg PO DAILY 90 days #180 tabs 10/02/22 release atorvastatin 10 mg tablet 10 mg PO BEDTIME 90 days #90 tabs 11/03/22 erythromycin 5 mg/gram (0.5 %) eye 0.5 inch ophthalmic (eye) BID #3.5 11/15/22 ointment grams prednisolone acetate 1 % eye 1 drp ophthalmic (eye) Q8H 7 days 11/15/22 drops,suspension #5 mL hydrochlorothiazide 12.5 mg tablet 12.5 mg PO DAILY 90 days #90 tabs 11/17/22 Allergies Allergy/AdvReac Type Severity Reaction Status Date / Time oxycodone [From PERCOCET] Allergy Severe HIVES Verified 11/15/22 12:47 hydrocodone [From VICODIN] AdvReac Severe PASS Verified 11/15/22 12:47 OUT/VOMITING Monistat 1 Allergy Severe Rash Uncoded 11/15/22 12:47 Suprep Bowel Prep AdvReac Severe Nausea and Uncoded 11/15/22 12:47 Vomiting Review of Systems Review of Systems: Positive facial pain Yes all other systems are reviewed and are negative PMFSH Past Medical History Medical History Obesity (BMI 30-39.9) GERD with esophagitis Personal history of COVID-19 PONV (postoperative nausea and vomiting) Impaired fasting glucose Pure hypercholesterolemia Benign essential hypertension GERD (gastroesophageal reflux disease) Dizziness Cataract Lumbar degenerative disc disease History of paroxysmal supraventricular tachycardia History of deep venous thrombosis (~2002) Migraine Mitral valve prolapse Surgical History History of esophagogastroduodenoscopy (EGD) History of colonoscopy (~06/28/15) History of surgery (~2002) History of surgery Family History Family History Father Diabetes Hypertension Stroke Cardiovascular disease Mother Myocardial infarction Social History Social History Housing: House Are you a primary transitional care manager to a significant other at home: No Do you presently have visiting nurse or other home services: No Alcohol intake: current Alcohol intake frequency: a few times a week Patient Tobacco Use Status: Former Tobacco user Quit Date: 1985 Smoked in Last 30 Days: No e-Cigarette/Vaping Use: Never Used Second Hand Smoke Exposure: Yes Use of substances other than those prescribed or required for medical reasons: No Advance Directives: No Advance Directives Information Provided: Yes service: No Current occupational status: retired Cognitive needs: No Hearing needs: No Vision needs: Yes Physical Exam Vital Signs: Vital Signs: Last Vital Signs Temp 97.9 F 03/03/23 00:00 Pulse 65 03/03/23 00:00 Resp 16 03/03/23 00:00 BP 127/71 03/03/23 00:00 Pulse Ox 99 03/03/23 00:00 O2 Del Method Room Air 03/03/23 00:00 BMI result Body Mass Index 30.0 Appearance: Alert. Oriented X3. No acute distress. Eyes: Pupils equal, round and reactive to light. ENT: Pharynx normal. no malocclusion noted. No midface tenderness no hemotympanum. Positive pain on occluding the mandible. Patient dentition is intact Neck: Normal inspection. Neck supple. No lymph nodes noted. No crepitus CVS: Normal heart rate and rhythm. Pulses normal. Normal S1 and S2 Respiratory: No respiratory distress. Breath sounds normal. No Wheezing. No rales Abdomen: Soft and nontender. No rigidity. No distention. good BS x4 Skin: Skin warm and dry. Normal skin color. Normal skin turgor. Extremities: No lower extremity edema. Neurovascular intact to all extremities. No Lacerations. No Rash Neuro: Oriented X 3. No motor deficit. No sensory deficit. Moving all extermities. No slurred speech Medical Decision Making Medical Decision Making MDM Narrative: positive head injury patient complaining of pain when she chews feels her jaws not align. Will get CT scan of the face and CT scan of the head. CT scan of the head and CT scan of the face of both grossly negative for any acute evidence of fracture no malalignment no bleeding. Will discharge patient home head injury precaution in stable condition. Differential Diagnosis Differential Diagnoses: The differential diagnosis associated with the presentation includes Head injury intracranial bleed fracture Admission/Observation Consideration of admission/observation: Escalation of care including admission/observation considered no need to admit patient there is no intracranial bleeding Independent Interpretation I performed an independent interpretation of an: CT Scan ( CT scan of the head and face negative for fracture bleeding) Radiology Impression Discussion of test interpretation with radiology: I have reviewed the radiologist's reading. Chronic Conditions Patient?s care impacted by: Hypertension Discharge Plan Discharge Clinical Impression: Head injury Patient Disposition: Home, Self-Care Instructions: Head Injury (ED) Prescriptions: No Action atorvastatin 10 mg tablet 10 mg PO BEDTIME 90 Days Qty: 90 1RF hydrochlorothiazide 12.5 mg tablet 12.5 mg PO DAILY 90 Days Qty: 90 1RF pantoprazole 40 mg tablet,delayed release (DR/EC) 40 mg PO DAILY 90 Days Qty: 180 3RF Rx Instructions: STOP Omeprazole 20 mg methenamine hippurate 1 gram tablet 1 g PO BID biotin 10 mg tablet 1,000 mg PO DAILY oxybutynin chloride 5 mg tablet 5 mg PO TID erythromycin 5 mg/gram (0.5 %) ointment 0.5 inch ophthalmic (eye) BID Qty: 3.5 0RF Rx Instructions: right eye Emgality Pen 120 mg/mL pen injector subcut .[id number] prednisolone acetate 1 % drops,suspension 1 drp ophthalmic (eye) Q8H 7 Days Qty: 5 0RF cyclosporine 0.05 % dropperette ophthalmic (eye) (DME) wedge pillow See Rx Instructions .Route .MEDSUPPLY Qty: 1 0RF Rx Instructions: As directed Referrals: Bryon Ding MD [Primary Care Provider] - 03/05/23
[2023-03-03] VITALS: BP 127/71; PULSE 65; RESP 16; TEMP 36.6; O2SAT 99
== END 2023-03-03 00:35 | disposition home or self-care (01) ==
PROVIDERS: Emergency Provider Emergency Medicine Emergency Medical Services; PCP Internal Medicine
DX: S09.90XA Unspecified injury of head, initial encounter (principal); W17.1XXA Fall into storm drain or manhole, initial encounter; R68.84 Jaw pain; Y93.01 Activity, walking, marching and hiking; Y92.414 Local residential or business street as the place of occurrence of the external cause; Y99.9 Unspecified external cause status
CPT/HCPCS: 70450; 70486; 99284

== ENCOUNTER 2023-05-29 15:20 | Outpatient (AMB) | payer MEDICARE, SELFPAY ==
[2023-05-29 15:22] VITALS: BP 122/86; PULSE 84; O2SAT 98
--- NOTE | 2023-05-29 15:22 | MHC.PC.OV ---
Vital Signs 05/29/23 15:22 Height 5 ft 5 in BMI Reason not done Patient refused/unable BP 122/86 Blood Pressure Location Lt brachial Position Sitting Pulse 84 Pulse Source Pulse Oximeter Pulse Oximetry (%) 98 Oxygen Delivery Method Room Air Intake Visit Reasons: restless leg syndrome [employer] Director Required: No Accompanied by: Self / Same As Patient Allergies oxycodone [From PERCOCET] Allergy (Severe, Verified 05/29/23 15:36) HIVES hydrocodone [From VICODIN] Adverse Reaction (Severe, Verified 05/29/23 15:36) PASS OUT/VOMITING Monistat 1 Allergy (Severe, Uncoded 05/29/23 15:36) Rash Suprep Bowel Prep Adverse Reaction (Severe, Uncoded 05/29/23 15:36) Nausea and Vomiting Medication List - Last Reconciled 05/29/23 by Bryon Ding MD atorvastatin 10 mg PO BEDTIME 90 days biotin 1,000 mg PO DAILY cyclosporine 0.05% drps ophthalmic (eye) erythromycin 0.5 inches ophthalmic (eye) BID galcanezumab-gnlm (Emgality Pen) mg subcut .t7lctyx hydrochlorothiazide 12.5 mg PO DAILY 90 days methenamine hippurate 1 g PO BID mirabegron ER (Myrbetriq) 50 mg PO DAILY pantoprazole 40 mg PO DAILY 90 days prednisolone acetate 1% 1 drp ophthalmic (eye) Q8H 7 days [wedge pillow As directed] Tobacco use date assessed: 05/29/23 Fall risk assessment: No Falls in past year Last assessed Fall Risk: 05/29/23 Dental Screening Dental Screen Date: 05/29/23 Did you have a dental visit in the last 12 months?: Yes Did you have a dental problem in the last 6 months where you did not have access to dental care?: No Was dental information given to patient?: Patient has dentist HPI restless leg syndrome HPI Details Patient comes in today for further evaluation of some symptoms that she's had lately that she finds very concerning States that she has been experiencing a recurrent sense of vibration/tingling/buzzing sensation in both of her legs for about a month and a half now States that her symptoms started on her legs and lately, have been occurring throughout her whole body Relates that her right leg has gone completely numb twice in the past couple of weeks, with each episode lasting about an hour or so before the feeling in her leg returned spontaneously She denies any recent headaches or dizziness and denies any unusual pain in her body over the past few months, even when her symptoms of numbness and tingling sensations were occurring She denies any weakness of her arms and legs and states that she's had no problems with her mobility and activity tolerance but relates that it just feels weird when her symptoms are present She denies any chest pains, no SOB No nausea/vomiting, no abdominal pain No change in bowel habits noted [facility] Medical History Obesity (BMI 30-39.9) GERD with esophagitis Personal history of COVID-19 PONV (postoperative nausea and vomiting) Impaired fasting glucose Pure hypercholesterolemia Benign essential hypertension GERD (gastroesophageal reflux disease) Dizziness Cataract Lumbar degenerative disc disease History of paroxysmal supraventricular tachycardia History of deep venous thrombosis (~2002) Migraine Mitral valve prolapse Surgical History History of esophagogastroduodenoscopy (EGD) History of colonoscopy (~06/28/15) History of surgery (~2002) History of surgery Family History Father Diabetes Hypertension Stroke Cardiovascular disease Mother Myocardial infarction Social History Housing: House Are you a primary college and career counselor to a significant other at home: No Do you presently have visiting nurse or other home services: No Alcohol intake: current Alcohol intake frequency: a few times a week Patient Tobacco Use Status: Former Tobacco user Quit Date: 1985 e-Cigarette/Vaping Use: Never Used Second Hand Smoke Exposure: Yes service: No Current occupational status: retired Cognitive needs: No Hearing needs: No Vision needs: Yes Questionnaire PHQ-9 Over the last 2 weeks, how often have you been bothered by any of the following problems? 1. Little interest or pleasure in doing things: not at all 2. Feeling down, depressed, or hopeless: not at all 3. Trouble falling or staying asleep, or sleeping too much: not at all 4. Feeling tired or having little energy: not at all 5. Poor appetite or overeating: not at all 6. Feeling bad about yourself - or that you are a failure or have let yourself or your family down: not at all 7. Trouble concentrating on things, such as reading the newspaper or watching television: not at all 8. Moving or speaking so slowly that other people could have noticed. Or the opposite - being so fidgety or restless that you have been moving around a lot more than usual: not at all 9. Thoughts that you would be better off or of hurting yourself in some way: not at all Total score: 0 Depression Screening Interpretation: Negative Depression Screening Done: Yes 15836 - PHQ-9 Billing: Yes Source: Developed by Drs. Stephen Muñoz, Maren Peters, Kun Salas and colleagues, with an educational maria g from [employer]. Thrive Questionnaire Date Thrive assessed: 05/29/23 I am a: Patient What is your living situation today?: I have a steady place to live Within the past 12 months, did the food you bought not last and you didn't have the money to get more?: Never true Within the past 12 months, did you worry whether your food would run out before you got money to buy more?: Never true Do you have trouble paying for medicines?: No Do you have trouble getting transportation to medical appointments?: No Do you have trouble paying your heating and electricity bill?: No Do you have trouble taking care of your child, family member or friend?: No Do you have trouble with day-to-day activities such as bathing, preparing meals, shopping, managing finances, etc.?: No Are you currently unemployed and looking for a job?: No Are you interested in more education?: No Please select the resources that you would like help with: None Currently or been in a relationship where the following occur: no concerns reported THRIVE Score: 0 AUDIT C Alcohol Use Questionnaire (AUDIT-C) 1. How often do you have a drink containing alcohol?: 2-3 times a week 2. How many drinks containing alcohol do you have on a typical day when you are drinking?: 1 or 2 3. How often do you have six or more drinks on one occasion?: Never Total Score: 3 Score Reviewed/Action Taken: Yes MILO-7 AMB Questionnaire MILO-7 Date MILO - 7 assessed: 05/29/23 Feeling nervous, anxious, or on edge: 0 = Not at all Not being able to stop or control worryin = Not at all Worrying too much about different things: 0 = Not at all Trouble relaxin = Not at all Being so restless that it is hard to sit still: 0 = Not at all Becoming easily annoyed or irritable: 0 = Not at all Feeling afraid as if something awful might happen: 0 = Not at all Total MILO-7 score (0-4 normal; 5-9 mild; 10-14 moderate; 15-21 severe): 0 Source: Developed by Drs. Stephen Muñoz, Maren ePters, Kun Salas and colleagues, with an educational maria g from [employer]. Review of Systems Const Denies chills, Denies fatigue, Denies fever(s) and Denies headache(s) Eyes Denies blurry vision and Denies diplopia ENT Denies dysphagia, Denies dizziness, Denies headache(s), Reports neck pain (on and off), Denies odynophagia, Denies disequilibrium and Denies sore throat Card Denies chest pain, Denies rapid heart rate, Denies irregular heart rhythm, Denies palpitations and Denies dyspnea Resp Denies cough, Denies dyspnea and Denies wheezing GI Denies abdominal pain, Denies constipation, Denies dysphagia, Denies heartburn, Denies diarrhea, Denies nausea, Denies odynophagia and Denies vomiting Denies hematuria, Denies urinary frequency and Denies dysuria Musc Denies abnormal gait, Denies back pain, Reports arthralgias (in both hands/fingers, recurrent; worse in the left hand), Denies joint swelling, Denies muscle weakness, Reports neck pain (on and off), Reports numbness (on and off - see HPI) and Reports tingling (on and off - see HPI) Skin/Breast Denies rash Neuro Denies abnormal gait, Denies dizziness, Denies headache(s), Denies focal weakness, Reports numbness (on and off - see HPI), Reports tingling (on and off - see HPI) and Denies disequilibrium Psych Denies anxiety and Denies depression Endo Denies fatigue and Denies palpitations Aller/Immun Denies wheezing Physical exam (Primary Care) Vital Signs: Last Vital Signs Pulse 84 05/29/23 15:22 BP 122/86 05/29/23 15:22 Pulse Ox 98 05/29/23 15:22 Oxygen Delivery Method Room Air 05/29/23 15:22 Tobacco/Smoking Status: Tobacco use Status Tobacco use date assessed 05/29/23 05/29/23 15:23 Patient Tobacco Use Status Former Tobacco user 05/29/23 15:23 e-Cigarette/Vaping Use Never Used 05/29/23 15:23 PHQ-9: PHQ-9 Score PHQ-9: Total score 0 05/29/23 15:38 Depression Screening Interpretation: Negative Thrive Assessment: Date of Thrive Assessment Date Thrive assessed 05/29/23 05/29/23 15:25 Currently or been in a relationship where the following occur: no concerns reported Const General: no acute distress and alert HENMT Ears: TM's normal bilaterally and EAC's normal Throat: Yes posterior oropharynx normal and Yes tonsils normal (no TP congestion) Neck Neck: Yes no lymphadenopathy and Yes supple Thyroid: Thyroid normal Resp Auscultation: clear to auscultation bilaterally, no rales and no wheezes Cardio Rate: regular rate Rhythm: regular rhythm Heart sounds: no murmurs GI Palpation (GI): Soft to palpation and nontender Auscultation: normal bowel sounds General: Yes no CVA tenderness Back/Spine/Pelvis Back: no CVA tenderness Cervical Spine: Cervical spine tenderness (minimal) Thoracic/Lumbar Spine: No lumbar spinal tenderness Skin Rashes: no rashes Neuro General: no focal motor deficits Gait exam (Neuro): Normal gait present Extrem General: Yes no clubbing, cyanosis or edema Assessment and Plan Assessment & Plan (1) Paresthesia: Code(s): R20.2 - Paresthesia of skin Plan: Will send patient for some labs KATHIE for further evaluation Will also send her for MRI of the head for further evaluation, considering her Hx of migraine headaches and other comorbidities, as her recent symptoms raise concerns for possible neuropathy or other [employer] etiologies, including MS Depending on how her MRI comes out, may also need to refer her to neurology for further evaluation and management, and may also need to send her for EMG and NCV for further evaluation (2) Migraine: Code(s): G43.909 - Migraine, unspecified, not intractable, without status migrainosus Qualifiers: Migraine type: without aura Status migrainosus presence: with status migrainosus Intractability: intractable Qualified Code(s): G43.011 - Migraine without aura, intractable, with status migrainosus Plan: Reinforced avoidance of migraine triggers States previously that her migraine headaches have been better controlled since she was started on monthly Emgality injections by neurology Continue Emgality injections monthly and Sumatriptan 100 mg PRN as instructed Follow up with neurology as scheduled (3) Benign essential hypertension: Code(s): I10 - Essential (primary) hypertension Plan: Reinforced low sodium diet - goal is systolic BP of at least 130 mm or less Continue HCTZ 12.5 mg QD Have tried switching her over to Valsartan 80 mg QD in the past but she could not tolerate Rx Patient is again reminded to continue monitoring her blood pressure regularly (4) Neck pain: Code(s): M54.2 - Cervicalgia Plan: Cervical spine x-rays done back in May 2021 revealed (+) mild cervical spine degenerative disc disease States that her previous neck pain has improved slightly with physical therapy and she continues to do the exercises she was taught regularly on her own to help manage her neck symptoms Plan Follow up as scheduled in July 2023 Orders: Orders Lipid Panel 05/30/23 E78.00 - Pure hypercholesterolemia, unspecified TSH reflex Free T4 05/30/23 E78.00 - Pure hypercholesterolemia, unspecified, R20.2 - Paresthesia of skin UA CC w/rflx Micro + Cult 05/30/23 R30.0 - Dysuria Vitamin D 25-OH Total 05/30/23 E55.9 - Vitamin D deficiency, unspecified, R20.2 - Paresthesia of skin C Reactive Protein 05/30/23 R20.2 - Paresthesia of skin MR head/brain wo con 05/29/23 R20.2 - Paresthesia of skin, R51.9 - Headache, unspecified, R53.1 - Weakness Complete Blood Count Auto Diff 05/30/23 R20.2 - Paresthesia of skin Comprehensive [place]. Panel Fast 05/30/23 R20.2 - Paresthesia of skin Vitamin B12 and Folate 05/30/23 E53.8 - Deficiency of other specified B group vitamins, R20.2 - Paresthesia of skin Erythrocyte Sedimentation Rate 05/30/23 R20.2 - Paresthesia of skin Magnesium 05/30/23 E83.42 - Hypomagnesemia, R20.2 - Paresthesia of skin Coding Level of Care Code Est Pt Level 3 (92338) Diagnoses Paresthesia R20.2 Intractable migraine without aura and with status migrainosus G43.011 Migraine type: without aura Status migrainosus presence: with status migrainosus Intractability: intractable Benign essential hypertension I10 Neck pain M54.2
== END 2023-05-29 15:48 | disposition home or self-care (01) ==
PROVIDERS: PCP Internal Medicine; Visit Provider Internal Medicine
DX: R20.2 Paresthesia of skin (principal); G43.011 Migraine without aura, intractable, with status migrainosus; I10 Essential (primary) hypertension; M54.2 Cervicalgia
CPT/HCPCS: 99213

== ENCOUNTER 2023-05-30 08:27 | Outpatient (REF) | payer MEDICARE, SELFPAY ==
[2023-05-30 08:37] LABS: MANUAL DIFF FLAG NO
[2023-05-30 09:02] LABS: Basophils Percent Auto 0.8 % (0-2); Eosinophils Absolute Auto 0.1 X10*3/uL (0.0-0.4); Eosinophils Percent Auto 2.7 % (0-4); Hemoglobin 12.8 g/dl (12.0-16.0); Imm Gran Abs Auto 0.01 X10*3/uL (0.00-0.03); Imm Gran Pct Auto 0.2 % (0.0-0.4); Lymphocytes Absolute Auto 2.2 X10*3/uL (1.2-4.9); Lymphocytes Percent Auto 45.6 % (20-40); Mean Corpuscular HGB Conc 32.8 g/dl (31.0-35.0); Mean Corpuscular Hemoglobin 29.2 pg (27.0-33.0); Mean Platelet Volume 9.1 fL (9.4-12.3); Monocytes Absolute Auto 0.3 X10*3/uL (0.1-1.2); Monocytes Percent Auto 7.1 % (2-11); Neutrophils Absolute Auto 2.1 x10*3/uL (2.0-8.3); Neutrophils Percent Auto 43.6 % (45-73); Platelet Count 285 X10*3/uL (160-400); Red Blood Count 4.38 X10*6/uL (4.20-5.50); Red Cell Distribution Width 13.7 % (11.0-16.0); White Blood Count 4.8 X10*3/uL (4.8-10.8)
[2023-05-30 09:43] LABS: Alanine Aminotransferase 20 U/L (0-31); Albumin Level 4.2 g/dL (3.5-5.0); Alkaline Phosphatase 78 U/L (39-117); Anion Gap 12 (12-20); Aspartate Amino Transferase 23 U/L (5-31); Bilirubin Total 0.5 mg/dL (0.0-1.0); Blood Urea Nitrogen 18 mg/dL (9-16); C Reactive Protein 0.38 mg/dL (< or = 0.50); Calcium 9.5 mg/dL (8.4-10.2); Carbon Dioxide 30 mmol/L (22-29); Chloride 104 mmol/L (96-108); Cholesterol 171 mg/dL (<200); Estimated Glomerular Filt Rate > 60; Glucose Fasting 95 mg/dL (60-99); HDL Cholesterol 73 mg/dL (>40); LDL Cholesterol Calculated 81 mg/dL (<100); Potassium 3.9 mmol/L (3.3-5.1); Sodium 142 mmol/L (135-145); Total Protein 7.3 g/dL (6.5-8.0); Triglycerides 88 mg/dL (<150)
[2023-05-30 09:49] LABS: TSH reflex Free T4 1.25 uIU/mL (0.32-4.0); Vitamin D 25-OH Total 40.4 ng/mL (>30)
[2023-05-30 09:55] LABS: Erythrocyte Sedimentation Rate 14 MM/HR (0-20)
[2023-05-30 10:10] LABS: Folate 12.2 ng/mL (> or = 4.0); Vitamin B12 849 pg/mL (200-900)
[2023-05-30 10:13] LABS: Appearance Urine Clear; Color Urine Yellow; Glucose Urine UA Negative (Negative); Leukocyte Esterase Urine Trace (Negative); Nitrite Urine Negative (Negative); PH 5.5 (5.0-9.0); UMIC TRIGGER UACC YES; Urine Blood Negative (Negative); Urine Ketones Negative (Negative); Urine Protein Negative (Neg-Trace)
[2023-05-30 10:16] LABS: Bacteria Urine None Seen (None Seen); Hyaline Casts Urine 0-2 /LPF (0-2); RBC Urine 0-2 /HPF (0-2); WBC Urine 0-5 /HPF (0-5)
== END 2023-05-30 08:28 | disposition home or self-care (01) ==
LOC: HO.LAB 08:27
PROVIDERS: PCP Internal Medicine; Visit Provider Internal Medicine
DX: E78.00 Pure hypercholesterolemia, unspecified (principal); E55.9 Vitamin D deficiency, unspecified; E53.8 Deficiency of other specified B group vitamins; R20.2 Paresthesia of skin
CPT/HCPCS: 36415; 80053; 80061; 81001; 81003; 82306; 82607; 82746; 83735; 84443; 85025; 85652; 86140

== ENCOUNTER 2023-06-30 10:11 | Outpatient (REF) | payer MEDICARE, SELFPAY ==
--- NOTE | ~2023-06-30 | MR_ITS ---
EXAMINATION: MR BRAIN WITHOUT CONTRAST CLINICAL INFORMATION: Paresthesias COMPARISON: CT head without contrast 03/02/2023 TECHNIQUE: Multiplanar multisequence MR imaging of the brain was obtained without intravenous contrast. FINDINGS: There is no acute infarct on diffusion-weighted imaging. There is no intracranial hemorrhage on iron-sensitive imaging. No extra-axial collection or mass effect/herniation. Scattered periventricular and deep white matter and right ventral pontine T2 FLAIR hyperintensities consistent with mild underlying microangiopathy. No hydrocephalus. The ventricles are normal in morphology and size. The major flow voids at the skull base are preserved. The midline structures are normal. The cerebellar tonsils are normally positioned. The craniocervical junction is normal. Marrow signal is within normal limits. The visualized soft tissues are without significant abnormality. No signal abnormality within the paranasal sinuses or within the mastoid air cells. MR/MR head/brain wo con IMPRESSION: Mild burden of nonspecific scattered supratentorial white matter as well as right ventral pontine T2/FLAIR hyperintensities, most likely reflecting sequela of chronic microvascular ischemia. No lesion morphology or distribution specific to demyelinating disease.
== END 2023-06-30 10:12 | disposition home or self-care (01) ==
LOC: HO.MRI 10:11
PROVIDERS: PCP Internal Medicine; Visit Provider Internal Medicine
DX: R20.2 Paresthesia of skin (principal); R51.9 Headache, unspecified; R53.1 Weakness
CPT/HCPCS: 70551

== ENCOUNTER 2023-07-13 13:26 | Outpatient (AMB) | payer MEDICARE, SELFPAY ==
--- NOTE | 2023-07-13 13:31 | A.OFFPC_ITS ---
Vital Signs 07/13/23 13:32 Height 5 ft 5 in BMI Reason not done Patient refused/unable BP 108/72 Blood Pressure Location Lt brachial Position Sitting Pulse 90 Pulse Source Pulse Oximeter Pulse Oximetry (%) 98 Oxygen Delivery Method Room Air Intake Visit Reasons: hyperlipidemia, migraine, esophagitis Intake Note: Patient is here to follow up on Hyperlipidemia, Migraine, Esophagitis. Tail Ripper Required: No Bituminous Paving Machine Operator: Not Required per policy Accompanied by: Self / Same As Patient Allergies oxycodone [From PERCOCET] Allergy (Severe, Verified 07/13/23 14:09) HIVES hydrocodone [From VICODIN] Adverse Reaction (Severe, Verified 07/13/23 14:09) PASS OUT/VOMITING Monistat 1 Allergy (Severe, Uncoded 07/13/23 14:09) Rash Suprep Bowel Prep Adverse Reaction (Severe, Uncoded 07/13/23 14:09) Nausea and Vomiting Medication List - Last Reconciled 07/13/23 by Bryon Ding MD atorvastatin 10 mg PO BEDTIME 90 days biotin 1,000 mg PO DAILY cyclosporine 0.05% drps ophthalmic (eye) galcanezumab-gnlm (Emgality Pen) mg subcut .[id number] hydrochlorothiazide 12.5 mg PO DAILY 90 days methenamine hippurate 1 g PO BID mirabegron ER (Myrbetriq) 50 mg PO DAILY [wedge pillow As directed] Tobacco use date assessed: 07/13/23 Fall risk assessment: No Falls in past year Last assessed Fall Risk: 07/13/23 Dental Screening Dental Screen Date: 05/29/23 HPI hyperlipidemia, migraine, esophagitis HPI Details Patient comes in today for her follow up visit States that she is still experiencing a recurrent sensation of vibration/ tingling/buzzing throughout her whole body although this seems to have calmed down somewhat compared to a few months ago States that her symptoms are mostly internal as her could not feel anyt federico physically even when she was actively experiencing the symptoms, and that the symptoms were occurring more often and more prominently at night Also relates experiencing a recurrent numbness over the side of her right leg at the time but this also seems to have subsided States that she had her labs and a brain MRI done a few weeks ago and has been concerned about her results - would like to go voer her results in details today to see if they can help explain her symptoms Recalls that her right leg went completely numb when she had an epidural anesthesia during her last many years ago and it took a while for her right leg symptoms to calm down - is not sure if her recent symptoms had anything to do with that Also adds that most of her recent symptoms seem to have started when she received her most recent COVID booster a few months ago - relates that she normally gets the Moderna vaccine and this time switched over to the Pfizer one Also states that she has been experiencing increased myalgia and diffuse muscle aches ever since she started taking her Atorvastatin States that she has a hard time doing any of her gym work outs over the past few months because of her muscle pains and has also noticed that her toes often cramp up at night over the past few months - is wondering if there are any other alternatives to the Atorvastatin that she can take for her cholesterol that would cause less to no muscle symptoms She denies any headaches or dizziness Denies any chest pains, no SOB No nausea/vomiting, no abdominal pain No change in bowel habits noted [facility]LY [facility] Medical History Obesity (BMI 30-39.9) GERD with esophagitis Personal history of COVID-19 PONV (postoperative nausea and vomiting) Impaired fasting glucose Pure hypercholesterolemia Benign essential hypertension GERD (gastroesophageal reflux disease) Dizziness Cataract Lumbar degenerative disc disease History of paroxysmal supraventricular tachycardia History of deep venous thrombosis (~2002) Migraine Mitral valve prolapse Surgical History History of esophagogastroduodenoscopy (EGD) History of colonoscopy (~06/28/15) History of surgery (~2002) History of surgery Family History Father Diabetes Hypertension Stroke Cardiovascular disease Mother Myocardial infarction Social History Housing: House Are you a primary day care director to a significant other at home: No Do you presently have visiting nurse or other home services: No Alcohol intake: current Alcohol intake frequency: a few times a week Patient Tobacco Use Status: Former Tobacco user Quit Date: 1985 e-Cigarette/Vaping Use: Never Used Second Hand Smoke Exposure: Yes service: No Current occupational status: retired Cognitive needs: No Hearing needs: No Vision needs: Yes Questionnaire Thrive Questionnaire Date Thrive assessed: 05/29/23 MILO-7 AMB Questionnaire MILO-7 Date MILO - 7 assessed: 05/29/23 Source: Developed by Drs. Stephen Muñoz, Maren Peters, Kun Salas and colleagues, with an educational maria g from [employer]. Review of Systems Const Denies chills, Denies fatigue, Denies fever(s) and Denies headache(s) Eyes Denies blurry vision and Denies diplopia ENT Denies dysphagia, Denies dizziness, Denies headache(s), Reports neck pain (on and off), Denies odynophagia, Denies disequilibrium and Denies sore throat Card Denies chest pain, Denies rapid heart rate, Denies irregular heart rhythm, Den ies palpitations and Denies dyspnea Resp Denies cough, Denies dyspnea and Denies wheezing GI Denies abdominal pain, Denies constipation, Denies dysphagia, Denies heartburn, Denies diarrhea, Denies nausea, Denies odynophagia and Denies vomiting Denies hematuria, Denies urinary frequency and Denies dysuria Musc Denies abnormal gait, Denies back pain, Reports arthralgias (in both hands/fingers, recurrent; worse in the left hand), Denies joint swelling, Reports muscle cramps (diffuse, recurrent - see HPI), Denies muscle weakness, Reports neck pain (on and off), Reports numbness (on and off - see HPI) and Reports tingling (on and off - see HPI) Skin/Breast Denies rash Neuro Denies abnormal gait, Denies dizziness, Denies headache(s), Denies focal weakness, Reports numbness (on and off - see HPI), Reports tingling (on and off - see HPI) and Denies disequilibrium Psych Denies anxiety and Denies depression Endo Denies fatigue and Denies palpitations Aller/Immun Denies wheezing Physical exam (Primary Care) Vital Signs: Last Vital Signs Pulse 90 07/13/23 13:32 BP 108/72 07/13/23 13:32 Pulse Ox 98 07/13/23 13:32 Oxygen Delivery Method Room Air 07/13/23 13:32 Tobacco/Smoking Status: Tobacco use Status Tobacco use date assessed 07/13/23 07/13/23 13:37 Patient Tobacco Use Status Former Tobacco user 07/13/23 13:37 e-Cigarette/Vaping Use Never Used 07/13/23 13:37 Thrive Assessment: Date of Thrive Assessment Date Thrive assessed 05/29/23 07/13/23 13:37 Const General: no acute distress and alert HENMT Ears: TM's normal bilaterally and EAC's normal Throat: Yes posterior oropharynx normal and Yes tonsils normal (no TP congestion) Neck Neck: Yes no lymphadenopathy and Yes supple Thyroid: Thyroid normal Resp Auscultation: clear to auscultation bilaterally, no rales and no wheezes Cardio Rate: regular rate Rhythm: regular rhythm Heart sounds: no murmurs GI Palpation (GI): Soft to palpation and nontender Auscultation: normal bowel sounds General: Yes no CVA tenderness Back/Spine/Pelvis Back: no CVA tenderness Cervical Spine: Cervical spine tenderness (minimal) Thoracic/Lumbar Spine: No lumbar spinal tenderness Skin Rashes: no rashes Neuro General: no focal motor deficits Gait exam (Neuro): Normal gait present Extrem General: Yes no clubbing, cyanosis or edema Results Reviewed Results Reviewed: Laboratory Tests 05/30/23 05/30/23 05/30/23 08:36 08:36 08:36 WBC 4.8 Hgb 12.8 Hct 39.0 Plt Count 285 ESR 14 Sodium 142 Potassium 3.9 Creatinine 0.85 Estimated GFR > 60 Fasting Glucose 95 Calcium 9.5 D Magnesium 2.0 AST 23 ALT 20 Triglycerides 88 Cholesterol 171 LDL Cholesterol, Calc 81 HDL Cholesterol 73 Vitamin B12 849 25-OH Vitamin D Total 40.4 TSH 1.25 Ur Specific Morrow Urine Protein Urine Glucose (UA) Urine Blood Urine Nitrite Ur Leukocyte Esterase 05/30/23 05/30/23 05/30/23 08:37 08:37 08:37 WBC Hgb Hct Plt Count ESR Sodium Potassium Creatinine Estimated GFR Fasting Glucose Calcium Magnesium AST ALT Triglycerides Cholesterol LDL Cholesterol, Calc HDL Cholesterol Vitamin B12 25-OH Vitamin D Total TSH Ur Specific Morrow 1.020 Urine Protein Negative Urine Glucose (UA) Negative Urine Blood Negative Urine Nitrite Negative Ur Leukocyte Esterase Trace H Assessment and Plan Assessment & Plan (1) Paresthesia: Code(s): R20.2 - Paresthesia of skin Plan: Advised that her symptoms are more accurately due to PALLESTHESIA rather than Paresthesis Results of her labs and brain MRI done a few weeks ago reviewed and discussed with patient Have advised her that her labs came out okay/normal and that her brain MRI revealed (+) changes indicating a mild burden of nonspecific scattered supratentorial white matter as well as right ventral pontine T2/FLAIR hyperintensities, most likely reflecting sequela of chronic microvascular ischemia. No lesion morphology or distribution specific to demyelinating diseases are noted She is reassured that her tests done recently do not show evidence of any acute neurodegenerative conditions although based on her symptoms, MS still cannot be entirely ruled out and it is also still possible that her symptoms are due to some form of evolving neuropathy It is also possible that her symptoms may have all been triggered by her recent Pfizer COVID booster vaccine and if this is the case, her symptoms may gradually subside and clear up over time She is advised that we can either continue to observe her symptoms for now if they are not getting any worse and/or if she feels that they are slowly improving; alternatively, if she finds her symptoms annoying and disruptive, a short course/trial of oral Prednisone taper may also provide some relief and if it does, will give us more clarity as to the nature of her symptoms although this is something I would rather not do unless she finds her symptoms very disruptive for her Depending on how her symptoms develop or improve over time, we may still need to refer her to neurology for further evaluation and management, and may also need to have her go for EMG and NCV for further evaluation IF her symptoms persist ot progress (2) Migraine: Code(s): G43.909 - Migraine, unspecified, not intractable, without status migrainosus Qualifiers: Migraine type: without aura Status migrainosus presence: with status migrainosus Intractability: intractable Qualified Code(s): G43.011 - Migraine without aura, intractable, with status migrainosus Plan: Reinforced avoidance of migraine triggers States previously that her migraine headaches have been better controlled since she was started on monthly Emgality injections by neurology Continue Emgality injections monthly and Sumatriptan 100 mg PRN as instructed Follow up with neurology as scheduled (3) Pure hypercholesterolemia: Code(s): E78.00 - Pure hypercholesterolemia, unspecified Plan: Advised that her cholesterol levels have improved significantly from previous and remain well-controlled on her recent labs but patient reports experiencing increased diffuse myalgia ever since she started taking her cholesterol Rx a few months ago States that she has even tried taking it with Co Q 10 tablets without any significant improvement Reinforced low cholesterol diet Will try switching her from her Atorvastatin 10 mg QD to Rosuvastatin 5 mg QD to see if her myalgias will improve and if not, then she may be a candidate for the newer PCSK9 inhibitors, provided we can get her insurance to cover the Rx Will recheck her fasting lipids and labs in 3 months for follow up (4) Benign essential hypertension: Code(s): I10 - Essential (primary) hypertension Plan: Reinforced low sodium diet - goal is systolic BP of at least 130 mm or less Continue HCTZ 12.5 mg QD Have tried switching her over to Valsartan 80 mg QD in the past but she could not tolerate Rx Patient is again reminded to continue monitoring her blood pressure regularly (5) Neck pain: Code(s): M54.2 - Cervicalgia Plan: Cervical spine x-rays done back in May 2021 revealed (+) mild cervical spine degenerative disc disease States that her previous neck pain has improved slightly with physical therapy and she continues to do the exercises she was taught regularly on her own to help manage her neck symptoms (6) Obesity (BMI 30-39.9): Code(s): E66.9 - Obesity, unspecified Plan: Reinforced diet/exercise as tolerated/lose weight Plan Follow up in 3 months Orders: Orders Comprehensive [place]. Panel Fast 3 Months E78.00 - Pure hypercholesterolemia, unspecified TSH reflex Free T4 3 Months E78.00 - Pure hypercholesterolemia, unspecified Lipid Panel 3 Months E78.00 - Pure hypercholesterolemia, unspecified Medications: New rosuvastatin 5 mg PO DAILY 90 days 90 tabs 1RF Coding Level of Care Code Est Pt Level 4 (26763) Diagnoses Paresthesia R20.2 Intractable migraine without aura and with status migrainosus G43.011 Migraine type: without aura Status migrainosus presence: with status migrainosus Intractability: intractable Pure hypercholesterolemia E78.00 Benign essential hypertension I10 Neck pain M54.2 Obesity (BMI 30-39.9) E66.9
[2023-07-13 13:32] VITALS: BP 108/72; PULSE 90; O2SAT 98
== END 2023-07-13 14:17 | disposition home or self-care (01) ==
PROVIDERS: PCP Internal Medicine; Visit Provider Internal Medicine
DX: R20.2 Paresthesia of skin (principal); G43.011 Migraine without aura, intractable, with status migrainosus; E66.9 Obesity, unspecified; E78.00 Pure hypercholesterolemia, unspecified; I10 Essential (primary) hypertension; M54.2 Cervicalgia
CPT/HCPCS: 99214

== ENCOUNTER 2023-09-23 14:59 | Outpatient (AMB) | payer MEDICARE, SELFPAY ==
[2023-09-23 15:02] VITALS: BP 122/84; PULSE 83; TEMP 36.6; O2SAT 98
--- NOTE | 2023-09-23 15:02 | MHC.OFFWIV ---
Intake Vital Signs 09/23/23 15:02 Height 5 ft 5 in BMI Reason not done Patient refused/unable BP 122/84 Blood Pressure Location Lt brachial Pulse 83 Pulse Source Pulse Oximeter Temp 97.9 F Temp Source Oral Pulse Oximetry (%) 98 Oxygen Delivery Method Room Air Intake Visit Reasons: EP Rash Intake Note: pt here c/o rash on legs, spreading. Some itchy, some not. Started 1 wk ago. Patient Tobacco Use Status: Former Tobacco user Allergies oxycodone [From PERCOCET] Allergy (Severe, Verified 09/23/23 15:02) HIVES hydrocodone [From VICODIN] Adverse Reaction (Severe, Verified 09/23/23 15:02) PASS OUT/VOMITING Monistat 1 Allergy (Severe, Uncoded 09/23/23 15:02) Rash Suprep Bowel Prep Adverse Reaction (Severe, Uncoded 09/23/23 15:02) Nausea and Vomiting Do you need a note to return to daycare/school/sports/work: No HPI HPI Comments History of Present Illness Details Patient is a 68-year-old female presenting with a rash on her legs that is itchy x1 week. She states she went to an urgent care 7 days ago when she found what she thought was a bite on her foot. She states they gave her a tetanus vaccination just in case it was some kind of a bite. She states she has since developed small patches on her right medial calf, her left calf and her right arm. She has not tried anything to make it less itchy. Nothing seems to make it worse. FORMERLY [facility] Medical History Obesity (BMI 30-39.9) GERD with esophagitis Personal history of COVID-19 PONV (postoperative nausea and vomiting) Impaired fasting glucose Pure hypercholesterolemia Benign essential hypertension GERD (gastroesophageal reflux disease) Dizziness Cataract Lumbar degenerative disc disease History of paroxysmal supraventricular tachycardia History of deep venous thrombosis (~2002) Migraine Mitral valve prolapse Surgical History History of esophagogastroduodenoscopy (EGD) History of colonoscopy (~06/28/15) History of surgery (~2002) History of surgery Family History Father Diabetes Hypertension Stroke Cardiovascular disease Mother Myocardial infarction Social History Housing: House Are you a primary children's zoo caretaker to a significant other at home: No Do you presently have visiting nurse or other home services: No Alcohol intake: current Alcohol intake frequency: a few times a week Patient Tobacco Use Status: Former Tobacco user e-Cigarette/Vaping Use: Never Used Second Hand Smoke Exposure: Yes service: No Current occupational status: retired Cognitive needs: No Hearing needs: No Vision needs: Yes Review of Systems Const All systems reviewed & are unremarkable except as noted in HPI and below Physical Exam Vital Signs: Last Vital Signs Temp 97.9 F 09/23/23 15:02 Pulse 83 09/23/23 15:02 BP 122/84 09/23/23 15:02 Pulse Ox 98 09/23/23 15:02 Oxygen Delivery Method Room Air 09/23/23 15:02 Const General: cooperative, healthy appearing, comfortable, no acute distress and well developed Orientation/consciousness: patient oriented x3 Limitations: no limitations Eyes General: appearance normal, both eyes and all related structures Resp Effort & Inspection: normal respiratory effort and able to speak in complete sentences Skin Other: Patches of both streaky and clustered bumps, some air-fluid filled, some crusted over on the following areas: right great toe, right medial calf, left posterior calf, left forearm, no signs of infection noted, no ecchymosis Neuro General: patient oriented x3 Assessment & Plan Assessment & Plan (1) Contact dermatitis: Comment: Poison mario Code(s): L25.9 - Unspecified contact dermatitis, unspecified cause Qualifiers: Contact dermatitis type: irritant Contact dermatitis trigger: other trigger Qualified Code(s): L24.89 - Irritant contact dermatitis due to other agents Plan: Send prescription for prednisone taper Medications: New prednisone see taper instructions 10 mg PO DIRECTED 21 ea 0RF Coding Level of Care Code Est Pt Level 3 (21403) Diagnoses Irritant contact dermatitis due to other agents L24.89 Contact dermatitis type: irritant Contact dermatitis trigger: other trigger
== END 2023-09-23 15:23 | disposition home or self-care (01) ==
PROVIDERS: PCP Internal Medicine; Visit Provider Physician Assistant
DX: L24.89 Irritant contact dermatitis due to other agents (principal)
CPT/HCPCS: 99213

== ENCOUNTER 2023-10-19 12:24 | Outpatient (AMB) | payer MEDICARE, SELFPAY ==
--- NOTE | 2023-10-19 12:38 | A.OFFPC_ITS ---
Vital Signs 10/19/23 12:40 Height 5 ft 5 in BMI Reason not done Patient refused/unable BP 124/70 Blood Pressure Location Rt brachial Position Sitting Pulse 82 Pulse Source Pulse Oximeter Pulse Oximetry (%) 96 Oxygen Delivery Method Room Air Intake Visit Reasons: 3mof\u Intake Note: Patient is here to follow up on PSVT, HTN, LDDD. Clinical Informatics Manager Required: No Corrugator Supervisor: Not Required per policy Accompanied by: Self / Same As Patient Allergies oxycodone [From PERCOCET] Allergy (Severe, Verified 10/19/23 12:40) HIVES hydrocodone [From VICODIN] Adverse Reaction (Severe, Verified 10/19/23 12:40) PASS OUT/VOMITING atorvastatin Adverse Reaction (Intermediate, Verified 10/19/23 12:52) myalgia rosuvastatin Adverse Reaction (Intermediate, Verified 10/19/23 12:52) myalgia Monistat 1 Allergy (Severe, Uncoded 10/19/23 12:40) Rash Suprep Bowel Prep Adverse Reaction (Severe, Uncoded 10/19/23 12:40) Nausea and Vomiting Medication List - Last Reconciled 10/19/23 by Bryon Ding MD biotin 1,000 mg PO DAILY cyclosporine 0.05% drps ophthalmic (eye) galcanezumab-gnlm (Emgality Pen) mg subcut .[id number] hydrochlorothiazide 12.5 mg PO DAILY 90 days methenamine hippurate 1 g PO BID Repatha SureClick (evolocumab) 140 mg subcut Q2W 4 weeks NS [wedge pillow As directed] Tobacco use date assessed: 10/19/23 Fall risk assessment: No Falls in past year Last assessed Fall Risk: 10/19/23 Dental Screening Dental Screen Date: 05/29/23 HPI 3mof\u HPI Details Patient comes in today for her follow up visit She recently started botox injections with urology for her OAB a couple of months ago and states that it is working very well as she no longer has to take any other Rx for her bladder - all of her previous Rx were discontinued States that she has been breaking out in a recurrent itchy rash all over since she got back from her vacation cruise early last month and that she went to 2 separate urgent care clinic for evaluation and both placed determined she has poison mario and she was started on oral prednisone, which she states helped but the symptoms continue to recur States that she has not been out in her yard gardening or weeding at all so she does not know where she could have come into contact with poison mario She relates also testing positive for COVID when she returned from her vacation but states that her respiratory symptoms then were mostly mild She currently denies any fever, headaches or dizziness Denies any chest pains, no SOB No nausea/vomiting, no abdominal pain No change in bowel habits noted She is currently still taking Atorvastatin even though she gets frequent myalgias from it Recalls that her symptoms were much worse with Rosuvastatin when we tried to switch her over a few months ago States that she was never able to start her Repatha injections - she was never able to poultry picker her Rx as she left for vacation when it was approved and states that she was being charged over $300 co-pay for her Rx when she tried to pick it up after she returned from her trip [facility] Medical History (Updated 10/19/23 @ 15:48 by Bryon Ding MD) Overactive bladder Obesity (BMI 30-39.9) GERD with esophagitis Personal history of COVID-19 PONV (postoperative nausea and vomiting) Impaired fasting glucose Pure hypercholesterolemia Benign essential hypertension GERD (gastroesophageal reflux disease) Dizziness Cataract Lumbar degenerative disc disease History of paroxysmal supraventricular tachycardia History of deep venous thrombosis (~2002) Migraine Mitral valve prolapse Surgical History History of esophagogastroduodenoscopy (EGD) History of colonoscopy (~06/28/15) History of surgery (~2002) History of surgery Family History Father Diabetes Hypertension Stroke Cardiovascular disease Mother Myocardial infarction Social History Housing: House Are you a primary career development engineer to a significant other at home: No Do you presently have visiting nurse or other home services: No Alcohol intake: current Alcohol intake frequency: a few times a week Patient Tobacco Use Status: Former Tobacco user e-Cigarette/Vaping Use: Never Used Second Hand Smoke Exposure: Yes service: No Current occupational status: retired Cognitive needs: No Hearing needs: No Vision needs: Yes Questionnaire Thrive Questionnaire Date Thrive assessed: 05/29/23 MILO-7 AMB Questionnaire MILO-7 Date MILO - 7 assessed: 05/29/23 Source: Developed by Drs. Stephen Muñoz, Maren Peters, Kun Salas and colleagues, with an educational maria g from [employer]. Review of Systems Const Denies chills, Denies fatigue, Denies fever(s) and Denies headache(s) ENT Denies dysphagia, Denies dizziness, Denies headache(s), Denies neck pain, Denies odynophagia, Denies disequilibrium and Denies sore throat Card Denies chest pain, Denies rapid heart rate, Denies irregular heart rhythm, Denies palpitations and Denies dyspnea Resp Denies cough, Denies dyspnea and Denies wheezing GI Denies abdominal pain, Denies constipation, Denies dysphagia, Denies heartburn, Denies diarrhea, Denies nausea, Denies odynophagia and Denies vomiting Denies hematuria, Denies urinary frequency and Denies dysuria Musc Denies back pain, Reports arthralgias (in both hands/fingers, recurrent; worse in the left hand), Denies joint swelling, Reports muscle cramps (diffuse, recurrent - see HPI), Denies muscle weakness and Denies neck pain Skin/Breast Reports rash (recurrent itchy rash - see HPI) Neuro Denies dizziness, Denies headache(s), Denies focal weakness and Denies disequilibrium Psych Denies anxiety and Denies depression Endo Denies fatigue and Denies palpitations Aller/Immun Denies wheezing Physical exam (Primary Care) Vital Signs: Last Vital Signs Pulse 82 10/19/23 12:40 BP 124/70 10/19/23 12:40 Pulse Ox 96 10/19/23 12:40 Oxygen Delivery Method Room Air 10/19/23 12:40 Tobacco/Smoking Status: Tobacco use Status Tobacco use date assessed 10/19/23 10/19/23 12:44 Patient Tobacco Use Status Former Tobacco user 10/19/23 12:44 e-Cigarette/Vaping Use Never Used 10/19/23 12:44 Thrive Assessment: Date of Thrive Assessment Date Thrive assessed 05/29/23 10/19/23 12:44 Const General: no acute distress and alert HENMT Ears: TM's normal bilaterally and EAC's normal Throat: Yes posterior oropharynx normal and Yes tonsils normal (no TP congestion) Neck Neck: Yes no lymphadenopathy and Yes supple Thyroid: Thyroid normal Resp Auscultation: clear to auscultation bilaterally, no rales and no wheezes Cardio Rate: regular rate Rhythm: regular rhythm Heart sounds: no murmurs GI Palpation (GI): Soft to palpation and nontender Auscultation: normal bowel sounds General: Yes no CVA tenderness Back/Spine/Pelvis Back: no CVA tenderness Cervical Spine: Cervical spine tenderness (minimal) Thoracic/Lumbar Spine: No lumbar spinal tenderness Extrem General: Yes no clubbing, cyanosis or edema Assessment and Plan Assessment & Plan (1) Contact dermatitis: Comment: Poison mario Code(s): L25.9 - Unspecified contact dermatitis, unspecified cause Qualifiers: Contact dermatitis trigger: other trigger Contact dermatitis type: irritant Qualified Code(s): L24.89 - Irritant contact dermatitis due to other agents Plan: Will start her again on oral Prednisone taper but this time extend it up to 12 days Will have patient also start taking Cetirizine 10 mg QD and Montelukast 10 mg Q PM and have advised her to take both of these everyday for at least a month Will start her as well on Famotidine 20 mg BID x 15 days She can continue taking Benadryl 25 mg TID PRN If her rash does not clear up or at least improve significantly over the next month or so, will need to consider allergy testing and/or refer her to dermatology for further evaluation and management Have discussed with patient that her recent bout with COVID may also potentially be a trigger here (2) Migraine: Code(s): G43.909 - Migraine, unspecified, not intractable, without status migrainosus Qualifiers: Migraine type: without aura Status migrainosus presence: with status migrainosus Intractability: intractable Qualified Code(s): G43.011 - Migraine without aura, intractable, with status migrainosus Plan: Reinforced avoidance of migraine triggers States previously that her migraine headaches have been better controlled since she was started on monthly Emgality injections by neurology Continue Emgality injections monthly and Sumatriptan 100 mg PRN as instructed Follow up with neurology as scheduled (3) Pure hypercholesterolemia: Code(s): E78.00 - Pure hypercholesterolemia, unspecified Plan: She continues to experience increased diffuse myalgia related to her cholesterol Rx States that her reaction(s) to Rosuvastatin was much worse than to Atorvastatin and she is currently still taking Atorvastatin 10 mg QD and trying to put up with the myalgia that it causes States that she has even tried taking it with Co Q 10 tablets without any significant improvement Reinforced low cholesterol diet We tried starting her on Repatha 140 mg SQ every 2 weeks and states that her Rx was approved but she did not start the med as she left for vacation when her Rx was approved She later found out that she has a co-pay of over $300 for her Rx so she did not pick it up as she could not afford it She is advised to reach out to her insurance company to find out if there is anything she can do to help knock down the cost of her Rx Will recheck her fasting lipids and labs in 3 months for follow up (4) Benign essential hypertension: Code(s): I10 - Essential (primary) hypertension Plan: Reinforced low sodium diet - goal is systolic BP of at least 130 mm or less Continue HCTZ 12.5 mg QD We have tried switching her over to Valsartan 80 mg QD in the past but she could not tolerate Rx Patient is again reminded to continue monitoring her blood pressure regularly (5) Neck pain: Code(s): M54.2 - Cervicalgia Plan: Cervical spine x-rays done back in May 2021 revealed (+) mild cervical spine degenerative disc disease States that her previous neck pain has improved slightly with physical therapy and she continues to do the exercises she was taught regularly on her own to help manage her neck symptoms (6) Overactive bladder: Code(s): N32.81 - Overactive bladder Plan: She has been on Rx in the past (Myrbetriq, Trospium) with little relief of her u rinary symptoms She recently started getting botox injections and states that this has helped a lot - she currently no longer has to take any Rx for her OAB and was advised that she may need to get botox injections every 6 months up to a year Follow up with urology as scheduled (7) Obesity (BMI 30-39.9): Code(s): E66.9 - Obesity, unspecified Plan: Reinforced diet/exercise as tolerated/lose weight Plan Follow up in 3 months Medications: New cetirizine 10 mg PO DAILY 30 tabs 2RF 30 days prednisone 4 tablets x 3 days, then 3 tablets x 3 days, then 2 tablets x 3 days, then 1 tablet x 3 days 33 ea 0RF 12 days L24.89 - Irritant contact dermatitis due to other agents montelukast 10 mg PO QPM 30 tabs 2RF 30 days famotidine 20 mg PO BID 60 tabs 1RF 30 days Coding Level of Care Code Est Pt Level 4 (79031) Diagnoses Irritant contact dermatitis due to other agents L24.89 Contact dermatitis trigger: other trigger Contact dermatitis type: irritant Intractable migraine without aura and with status migrainosus G43.011 Migraine type: without aura Status migrainosus presence: with status migrainosus Intractability: intractable Pure hypercholesterolemia E78.00 Benign essential hypertension I10 Neck pain M54.2 Overactive bladder N32.81 Obesity (BMI 30-39.9) E66.9
[2023-10-19 12:40] VITALS: BP 124/70; PULSE 82; O2SAT 96
== END 2023-10-19 13:10 | disposition home or self-care (01) ==
PROVIDERS: PCP Internal Medicine; Visit Provider Internal Medicine
DX: L24.89 Irritant contact dermatitis due to other agents (principal); G43.011 Migraine without aura, intractable, with status migrainosus; E78.00 Pure hypercholesterolemia, unspecified; I10 Essential (primary) hypertension; M54.2 Cervicalgia; N32.81 Overactive bladder
CPT/HCPCS: 99214

== ENCOUNTER 2023-11-04 12:29 | Outpatient (REF) | payer MEDICARE, SELFPAY ==
[2023-11-04 14:04] LABS: Appearance Urine Clear; Color Urine Dark Yellow; Glucose Urine UA Negative (Negative); Leukocyte Esterase Urine Moderate (2+) (Negative); Nitrite Urine Positive (Negative); PH 5.5 (5.0-9.0); Specific Gravity - Urine <= 1.005 (1.005-1.025); UMIC TRIGGER UACC YES; Urine Blood Negative (Negative); Urine Ketones Negative (Negative); Urine Protein Negative (Neg-Trace)
[2023-11-04 14:40] LABS: Alanine Aminotransferase 25 U/L (0-31); Albumin Level 4.2 g/dL (3.5-5.0); Alkaline Phosphatase 72 U/L (39-117); Anion Gap 14 (12-20); Aspartate Amino Transferase 25 U/L (5-31); Bilirubin Total 0.5 mg/dL (0.0-1.0); Blood Urea Nitrogen 15 mg/dL (9-16); Calcium 9.5 mg/dL (8.4-10.2); Carbon Dioxide 27 mmol/L (22-29); Chloride 105 mmol/L (96-108); Cholesterol 219 mg/dL (<200); Estimated Glomerular Filt Rate 59; Glucose Fasting 101 mg/dL (60-99); HDL Cholesterol 83 mg/dL (>40); LDL Cholesterol Calculated 83 mg/dL (<100); Sodium 142 mmol/L (135-145); Triglycerides 265 mg/dL (<150)
[2023-11-04 14:43] LABS: TSH reflex Free T4 1.09 uIU/mL (0.32-4.0)
[2023-11-04 14:45] LABS: Bacteria Urine 1+ (None Seen); Hyaline Casts Urine 0-2 /LPF (0-2); RBC Urine 0-2 /HPF (0-2); UACC Culture Trigger YES; WBC Urine 21-50 /HPF (0-5)
== END 2023-11-04 12:30 | disposition home or self-care (01) ==
LOC: HO.LAB 12:29
PROVIDERS: PCP Internal Medicine; Visit Provider Internal Medicine
DX: E78.00 Pure hypercholesterolemia, unspecified (principal); R30.0 Dysuria
CPT/HCPCS: 36415; 80053; 80061; 81001; 81003; 84443; 87086

== ENCOUNTER 2023-12-12 12:04 | Outpatient (AMB) | payer MEDICARE, SELFPAY ==
--- NOTE | 2023-12-12 12:13 | AM.OFFWIN_ITS ---
Intake Vital Signs 12/12/23 12:23 Height 5 ft 5 in BMI Reason not done Patient refused/unable BP 112/70 Blood Pressure Location Lt brachial Position Sitting Pulse 68 Pulse Source Pulse Oximeter Pulse Oximetry (%) 98 Oxygen Delivery Method Room Air Intake Visit Reasons: EP UTI Intake Note: ? UTI Patient Tobacco Use Status: Former Tobacco user Allergies oxycodone [From PERCOCET] Allergy (Severe, Verified 12/12/23 12:21) HIVES hydrocodone [From VICODIN] Adverse Reaction (Severe, Verified 12/12/23 12:21) PASS OUT/VOMITING atorvastatin Adverse Reaction (Intermediate, Verified 12/12/23 12:21) myalgia rosuvastatin Adverse Reaction (Intermediate, Verified 12/12/23 12:21) myalgia Monistat 1 Allergy (Severe, Uncoded 12/12/23 12:21) Rash Suprep Bowel Prep Adverse Reaction (Severe, Uncoded 12/12/23 12:21) Nausea and Vomiting Do you need a note to return to daycare/school/sports/work: No HPI EP UTI HPI Details Patient is here with UTI symptoms, she states she was woken up at 2 in the morning. She states frequency and burning. No fever or chills PFSH Medical History (Updated 10/19/23 @ 15:48 by Bryon Ding MD) Overactive bladder Obesity (BMI 30-39.9) GERD with esophagitis Personal history of COVID-19 PONV (postoperative nausea and vomiting) Impaired fasting glucose Pure hypercholesterolemia Benign essential hypertension GERD (gastroesophageal reflux disease) Dizziness Cataract Lumbar degenerative disc disease History of paroxysmal supraventricular tachycardia History of deep venous thrombosis (~2002) Migraine Mitral valve prolapse Surgical History History of esophagogastroduodenoscopy (EGD) History of colonoscopy (~06/28/15) History of surgery (~2002) History of surgery Family History Father Diabetes Hypertension Stroke Cardiovascular disease Mother Myocardial infarction Social History Housing: House Are you a primary care support representative to a significant other at home: No Do you presently have visiting nurse or other home services: No Alcohol intake: current Alcohol intake frequency: a few times a week Patient Tobacco Use Status: Former Tobacco user e-Cigarette/Vaping Use: Never Used Second Hand Smoke Exposure: Yes service: No Current occupational status: retired Cognitive needs: No Hearing needs: No Vision needs: Yes Review of Systems Const Details: See HPI Physical Exam Vital Signs: Last Vital Signs Pulse 68 12/12/23 12:23 BP 112/70 12/12/23 12:23 Pulse Ox 98 12/12/23 12:23 Oxygen Delivery Method Room Air 12/12/23 12:23 Const General: no acute distress and well developed Nutritional Appearance: well nourished Orientation/consciousness: patient oriented x3 HEENT Head: Yes normocephalic and Yes atraumatic Eyes General: appearance normal, both eyes and all related structures Pupils: Equal, round and reactive pupils present EOM: EOMs intact bilaterally Resp Effort & Inspection: normal respiratory effort Auscultation: clear to auscultation bilaterally Cardio Rate: regular rate Rhythm: regular rhythm Heart sounds: S1 normal heart sound present, S2 normal heart sound present, no gallops, no murmurs and no rubs Back/Spine/Pelvis Other: No CVA TTP Neuro General: patient oriented x3 and gait normal Cranial nerves: Yes Equal, round and reactive pupils present Psych Affect: normal affect Results AMB Urinalysis, Automated UA Leukoctes 3 Cristal/uL Last Edit by Berna Valdez CMA on 12/12/23 12:33 UA Nitrite Positive Last Edit by Berna Valdez CMA on 12/12/23 12:33 UA Urobilinogen 2 mg/dL Last Edit by Berna Valdez CMA on 12/12/23 12:33 UA Protein 1 mg/dL Last Edit by Berna Valdez CMA on 12/12/23 12:33 UA pH 5.0 Last Edit by Berna Valdez CMA on 12/12/23 12:33 UA Blood 1 Kvng/uL Last Edit by Berna Valdez CMA on 12/12/23 12:33 UA Specific [place] 1.020 Last Edit by Berna Valdez CMA on 12/12/23 12:3 3 UA Ketone Positive Last Edit by Berna Valdez CMA on 12/12/23 12:33 UA Bilirubin 3 mg/dL Last Edit by Berna Valdez CMA on 12/12/23 12:33 UA Glucose 5 mg/dL Last Edit by Berna Valdez CMA on 12/12/23 12:33 Assessment & Plan Assessment & Plan (1) Urinary tract infection: Code(s): N39.0 - Urinary tract infection, site not specified Qualifiers: Hematuria presence: without hematuria Urinary tract infection type: site unspecified Qualified Code(s): N39.0 - Urinary tract infection, site not specified Plan: Symptoms and urine dipstick are suspicious for UTI. Start Macrobid Will send urine to the lab to check C&S Patient also requests Pyridium for discomfort and I will send this as well. Follow-up with urologist and PCP as recommended or if not improving Orders: Orders AMB Urinalysis Automated Today R30.0 - Dysuria Urine Culture Today N39.0 - Urinary tract infection, site not specified UA and rflx microscopic Today Z00.00 - Encounter for general adult medical examination without abnormal findings Medications: New nitrofurantoin monohyd/m-cryst 100 mg (Macrobid) must administer with a meal/food 100 mg PO BID 7 days 14 caps 0RF Refilled phenazopyridine (Pyridium) 200 mg PO TID 2 days PRN 6 tabs 0RF pain Coding Level of Care Code Est Pt Level 3 (01666) Diagnoses Urinary tract infection without hematuria, site unspecified N39.0 Hematuria presence: without hematuria Urinary tract infection type: site unspecified
[2023-12-12 12:23] VITALS: BP 112/70; PULSE 68; O2SAT 98
== END 2023-12-12 12:51 | disposition home or self-care (01) ==
PROVIDERS: PCP Internal Medicine; Visit Provider Family Medicine
DX: R30.0 Dysuria (principal); N39.0 Urinary tract infection, site not specified
CPT/HCPCS: 81003; 99213

== ENCOUNTER 2023-12-12 12:39 | Outpatient (REF) | payer MEDICARE, SELFPAY ==
[2023-12-12 15:38] LABS: Appearance Urine Hazy; Color Urine Orange; Glucose Urine UA 250 mg/dL (Negative); Leukocyte Esterase Urine Large (3+) (Negative); Nitrite Urine Positive (Negative); Specific Gravity - Urine 1.025 (1.005-1.025); UMIC TRIGGER UA YES; Urine Blood Small (1+) (Negative); Urine Ketones Trace mg/dL (Negative); Urine Protein 300 (3+) mg/dL (Neg-Trace)
[2023-12-12 15:44] LABS: Bacteria Urine None Seen (None Seen); Hyaline Casts Urine 0-2 /LPF (0-2); WBC Urine >50 /HPF (0-5)
== END 2023-12-12 12:40 | disposition home or self-care (01) ==
LOC: HO.LAB 12:39
PROVIDERS: Internal Medicine; Visit Provider Family Medicine
DX: N39.0 Urinary tract infection, site not specified (principal); N32.81 Overactive bladder
CPT/HCPCS: 81001; 81003; 87086

== ENCOUNTER 2023-12-18 12:44 | Outpatient (REF) | payer MEDICARE, SELFPAY ==
[2023-12-18 16:24] LABS: Appearance Urine Clear; Color Urine Yellow; Glucose Urine UA Negative (Negative); Leukocyte Esterase Urine Small (1+) (Negative); Nitrite Urine Negative (Negative); PH 5.5 (5.0-9.0); UMIC TRIGGER UACC YES; Urine Blood Negative (Negative); Urine Ketones Negative (Negative); Urine Protein Negative (Neg-Trace)
[2023-12-18 16:27] LABS: Bacteria Urine None Seen (None Seen); Hyaline Casts Urine 0-2 /LPF (0-2); RBC Urine 0-2 /HPF (0-2); UACC Culture Trigger YES
== END 2023-12-18 12:45 | disposition home or self-care (01) ==
LOC: HO.HMGCLDS 12:44
PROVIDERS: PCP Internal Medicine; Visit Provider Internal Medicine
DX: R30.0 Dysuria (principal)
CPT/HCPCS: 81001; 87086

== ENCOUNTER 2024-02-11 10:56 | Outpatient (AMB) | payer MEDICARE, SELFPAY ==
[2024-02-11 11:13] VITALS: BP 120/92; PULSE 70; O2SAT 97
--- NOTE | 2024-02-11 11:13 | A.OFFPC_ITS ---
Vital Signs 02/11/24 11:13 Height 5 ft 5 in BMI Reason not done Patient refused/unable BP 120/92 H Blood Pressure Location Lt brachial Position Sitting Pulse 70 Pulse Source Pulse Oximeter Pulse Oximetry (%) 97 Oxygen Delivery Method Room Air Intake Visit Reasons: 3 Month F/U- see comm Allergies oxycodone [From PERCOCET] Allergy (Severe, Verified 02/11/24 11:53) HIVES hydrocodone [From VICODIN] Adverse Reaction (Severe, Verified 02/11/24 11:53) PASS OUT/VOMITING atorvastatin Adverse Reaction (Intermediate, Verified 02/11/24 11:53) myalgia rosuvastatin Adverse Reaction (Intermediate, Verified 02/11/24 11:53) myalgia Monistat 1 Allergy (Severe, Uncoded 02/11/24 11:53) Rash Suprep Bowel Prep Adverse Reaction (Severe, Uncoded 02/11/24 11:53) Nausea and Vomiting Medication List - Last Reconciled 02/12/24 by Bryon Ding MD atorvastatin 10 mg PO BEDTIME 90 days biotin 1,000 mg PO DAILY cetirizine 10 mg PO DAILY 30 days cyclosporine 0.05% drps ophthalmic (eye) famotidine 20 mg PO BID 30 days galcanezumab-gnlm (Emgality Pen) mg subcut .g4ustaq hydrochlorothiazide 12.5 mg PO DAILY 90 days montelukast 10 mg PO QPM 30 days [wedge pillow As directed] Tobacco use date assessed: 10/19/23 Dental Screening Dental Screen Date: 05/29/23 HPI 3 Month F/U- see comm HPI Details Patient comes in today for her follow up visit States that she is still losing a lot of her hair lately and would like to have some labs ordered again to look into her iron level to see if iron overload is a possible contributor to her hair loss She relates (+) fatigue but denies any increased headaches or dizziness lately - states that her migraine headaches have been well-controlled Denies any chest pains, no increased shortness of breath No nausea/vomiting, no abdominal pain No change in bowel habits noted She is still experiencing the recurrent generalized sensation of tingling and numbness all over that started after she received a Pfizer COVID-19 booster last March 2023 She would also like to go over the results of her labs done back in October 2023 Is requesting for a dermatology referral to Dr. Patel for a skin check for possible skin cancer [facility] Medical History (Updated 02/12/24 @ 03:52 by Bryon Ding MD) Overactive bladder Obesity (BMI 30-39.9) GERD with esophagitis Personal history of COVID-19 PONV (postoperative nausea and vomiting) Impaired fasting glucose Pure hypercholesterolemia Benign essential hypertension GERD (gastroesophageal reflux disease) Dizziness Cataract Lumbar degenerative disc disease History of paroxysmal supraventricular tachycardia History of deep venous thrombosis (~2002) Migraine Mitral valve prolapse Surgical History History of esophagogastroduodenoscopy (EGD) History of colonoscopy (~06/28/15) History of surgery (~2002) History of surgery Family History Father Diabetes Hypertension Stroke Cardiovascular disease Mother Myocardial infarction Social History Housing: House Are you a primary critical care cns to a significant other at home: No Do you presently have visiting nurse or other home services: No Alcohol intake: current Alcohol intake frequency: a few times a week Patient Tobacco Use Status: Former Tobacco user e-Cigarette/Vaping Use: Never Used Second Hand Smoke Exposure: Yes service: No Current occupational status: retired Cognitive needs: No Hearing needs: No Vision needs: Yes Questionnaire Thrive Questionnaire Date Thrive assessed: 05/29/23 AUDIT C Alcohol Use Questionnaire (AUDIT-C) 1. How often do you have a drink containing alcohol?: 2-3 times a week 2. How many drinks containing alcohol do you have on a typical day when you are drinking?: 1 or 2 3. How often do you have six or more drinks on one occasion?: Never Total Score: 3 Score Reviewed/Action Taken: Yes MILO-7 AMB Questionnaire MILO-7 Date MILO - 7 assessed: 05/29/23 Source: Developed by Drs. Stephen Muñoz, Maren Peters, Kun Salas and colleagues, with an educational maria g from [employer]. Review of Systems Const Denies chills, Denies fatigue, Denies fever(s) and Denies headache(s) ENT Denies dysphagia, Denies dizziness, Denies otalgia, Denies headache(s), Denies neck pain, Denies odynophagia and Denies sore throat Card Denies chest pain, Denies rapid heart rate, Denies palpitations and Denies dyspnea Resp Denies chest congestion, Denies cough and Denies dyspnea GI Denies abdominal pain, Denies constipation, Denies dysphagia, Denies heartburn, Denies diarrhea, Denies nausea, Denies odynophagia and Denies vomiting Denies urinary frequency, Denies nocturia, Denies dysuria and Denies urinary urgency Musc Denies back pain, Reports arthralgias (in both hands/fingers, recurrent; worse in the left hand), Denies joint swelling, Reports muscle cramps (diffuse, recurrent - see HPI), Denies muscle weakness and Denies neck pain Skin/Breast Reports alopecia and Denies rash Neuro Denies dizziness, Denies headache(s) and Denies focal weakness Psych Denies anxiety and Denies depression Endo Denies fatigue and Denies palpitations Physical exam (Primary Care) Vital Signs: Last Vital Signs Pulse 70 02/11/24 11:13 BP 120/92 H 02/11/24 11:13 Pulse Ox 97 02/11/24 11:13 Oxygen Delivery Method Room Air 02/11/24 11:13 Tobacco/Smoking Status: Tobacco use Status Tobacco use date assessed 10/19/23 02/11/24 11:16 Patient Tobacco Use Status Former Tobacco user 02/11/24 11:16 e-Cigarette/Vaping Use Never Used 02/11/24 11:16 Thrive Assessment: Date of Thrive Assessment Date Thrive assessed 05/29/23 02/11/24 11:16 Const General: no acute distress and alert HENMT Ears: TM's normal bilaterally and EAC's normal Throat: Yes posterior oropharynx normal and Yes tonsils normal (no TP congestion) Neck Neck: Yes no lymphadenopathy and Yes supple Thyroid: Thyroid normal Resp Auscultation: clear to auscultation bilaterally, no rales and no wheezes Cardio Rate: regular rate Rhythm: regular rhythm Heart sounds: no murmurs GI Palpation (GI): Soft to palpation and nontender Auscultation: normal bowel sounds General: Yes no CVA tenderness Back/Spine/Pelvis Back: no CVA tenderness Cervical Spine: Cervical spine tenderness (minimal) Thoracic/Lumbar Spine: No lumbar spinal tenderness Extrem General: Yes no clubbing, cyanosis or edema Results Reviewed Results Reviewed: Laboratory Tests 11/04/23 12:46 Sodium 142 Potassium 4.0 Creatinine 0.94 Estimated GFR 59 Fasting Glucose 101 H Calcium 9.5 AST 25 ALT 25 Triglycerides 265 H Cholesterol 219 H LDL Cholesterol, Calc 83 HDL Cholesterol 83 TSH 1.09 Coding Level of Care Code Est Pt Level 4 (77997) Diagnoses Benign essential hypertension I10 Pure hypercholesterolemia E78.00 Intractable migraine without aura and with status migrainosus G43.011 Migraine type: without aura Status migrainosus presence: with status migrainosus Intractability: intractable Paroxysmal SVT (supraventricular tachycardia) I47.1 Degenerative disc disease, cervical M50.30 Gastroesophageal reflux disease with esophagitis without hemorrhage K21.00 Esophagitis bleeding: without hemorrhage Paresthesia R20.2 Hair loss L65.9 Overactive bladder N32.81 Obesity (BMI 30-39.9) E66.9 Skin exam, screening for cancer Z12.83 Assessment & Plan Assessment & Plan (1) Benign essential hypertension: Code(s): I10 - Essential (primary) hypertension Category: Medical Plan: Reinforced low sodium diet - goal is systolic BP of at least 130 mm or less Continue HCTZ 12.5 mg QD Have tried switching her over to Valsartan 80 mg QD in the past but she could not tolerate Rx Patient is again reminded to continue monitoring her blood pressure regularly (2) Pure hypercholesterolemia: Code(s): E78.00 - Pure hypercholesterolemia, unspecified Category: Medical Plan: Results of her labs done back in October 2023 reviewed and discussed with patient - she is advised that her cholesterol levels remain adequately controlled, with h er LDL cholesterol at 83 mg/dl although her serum triglyceride level is still up at 265 mg/dl Reinforced low cholesterol diet Continue Atorvastatin 10 mg QD - she continues to experience myalgia on the Rx but states that the symptoms are still tolerable We tried switching her over to Repatha in the past but her insurance will not cover the Rx Will recheck her fasting lipids and labs in 6 months for follow up (3) Migraine: Code(s): G43.909 - Migraine, unspecified, not intractable, without status migrainosus Category: Medical Qualifiers: Migraine type: without aura Status migrainosus presence: with status migrainosus Intractability: intractable Qualified Code(s): G43.011 - Migraine without aura, intractable, with status migrainosus Plan: Patient states that her migraine headaches have been better controlled since she was started on Emgality injections monthly by neurology; she had some local skin reactions to the injection initially but these have since resolved Continue Emgality injections monthly and Sumatriptan 100 mg PRN as instructed Reinforced avoidance of migraine triggers Follow up with neurology as scheduled (4) Paroxysmal SVT (supraventricular tachycardia): Code(s): I47.1 - Supraventricular tachycardia Category: Medical Plan: Patient still has occasional brief sensations of tachycardia and heart racing but these are never associated with any SOB, dizziness/lightheadedness or chest pains Echocardiogram and stress echo done back in June 2022 both came out normal She is again advised to call if these symptoms get worse or occur more frequently - will need further work ups then, including Holter and/or TREVON (5) Degenerative disc disease, cervical: Code(s): M50.30 - Other cervical disc degeneration, unspecified cervical region Category: Medical Plan: Cervical spine x-rays done in May 2021 revealed (+) mild cervical spine degenerative disc disease Patient states that her neck pain has improved slightly with physical therapy in the past and she continues to do the neck exercises she was previously taught on a regular basis (6) GERD with esophagitis: Code(s): K21.00 - Gastro-esophageal reflux disease with esophagitis, without bleeding Category: Medical Qualifiers: Esophagitis bleeding: without hemorrhage Qualified Code(s): K21.00 - Gastro-esophageal reflux disease with esophagitis, without bleeding Plan: EGD done in September 2022 revealed findings consistent with active esophagitis She also 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, with resolution of her previous dysphagia Reinforced dietary restrictions Patient was on Pantoprazole 40 mg QD x 4 weeks, after which she tapered off her Rx per previous instructions from GI She is currently only taking Famotidine 20 mg BID PRN (7) Paresthesia: Code(s): R20.2 - Paresthesia of skin Category: Medical Plan: Have advised patient again that her symptoms are more accurately called PALLESTHESIA rather than paresthesis Her brain MRI done back in June 2023 revealed (+) changes indicating a mild burden of nonspecific scattered supratentorial white matter as well as right ventral pontine T2/FLAIR hyperintensities, most likely reflecting sequelae of chronic microvascular ischemia. No lesion morphology or distribution specific to demyelinating diseases are noted She has been reassured that her tests did not show evidence of any acute neurodegenerative conditions although MS still cannot be entirely ruled out; it is also still possible that her symptoms are due to some form of evolving neuropathy Patient still feels that her symptoms have all been triggered by the Pfizer COVID booster vaccine that she received last March 2023; if this is the case, her symptoms may gradually subside and clear up over time We can consider referring her to neurology for further evaluation and management if her symptoms continue to bother her; may also consider sending her for EMG and NCV for further evaluation (8) Hair loss: Code(s): L65.9 - Nonscarring hair loss, unspecified Category: Medical Plan: This is likely telogen hair loss but patient is requesting to have her iron levels checked again Will send her to the lab for additional tests, including her ferritin level, for further evaluation (9) Overactive bladder: Code(s): N32.81 - Overactive bladder Category: Medical Plan: She has been on Rx in the past (Myrbetriq, Trospium) with little relief of her urinary symptoms She started getting botox injections a few months ago and states that this has helped a lot - she currently no longer has to take any Rx for her OAB but was advised that she may need to get botox injections every 6 months up to a year Follow up with urology as scheduled (10) Obesity (BMI 30-39.9): Code(s): E66.9 - Obesity, unspecified Category: Medical Plan: Reinforced diet/exercise as tolerated/lose weight (11) Skin exam, screening for cancer: Code(s): Z12.83 - Encounter for screening for malignant neoplasm of skin Category: Medical Plan: Per request, will refer her to dermatology (Dr. Patel) for an annual/routine skin exam to check her any potential skin cancer Plan Follow up in 6 months Orders: Orders Ferritin 02/11/24 E83.119 - Hemochromatosis, unspecified, L65.9 - Nonscarring hair loss, unspecified Comprehensive [place]. Panel Fast 6 Months E78.00 - Pure hypercholesterolemia, unspecified Lipid Panel 6 Months E78.00 - Pure hypercholesterolemia, unspecified Complete Blood Count Auto Diff 02/11/24 D64.9 - Anemia, unspecified IRON PROFILE 02/11/24 D50.9 - Iron deficiency anemia, unspecified Referrals Dermatology Referral Z12.83 - Encounter for screening for malignant neoplasm of skin
== END 2024-02-11 12:10 | disposition home or self-care (01) ==
LOC: HO.HMCH 10:56
PROVIDERS: PCP Internal Medicine; Visit Provider Internal Medicine
DX: I10 Essential (primary) hypertension (principal); I47.10 Supraventricular tachycardia, unspecified; E78.00 Pure hypercholesterolemia, unspecified; G43.011 Migraine without aura, intractable, with status migrainosus; M50.30 Other cervical disc degeneration, unspecified cervical region; K21.00 Gastro-esophageal reflux disease with esophagitis, without bleeding; R20.2 Paresthesia of skin; L65.9 Nonscarring hair loss, unspecified; N32.81 Overactive bladder; E66.9 Obesity, unspecified; Z12.83 Encounter for screening for malignant neoplasm of skin

== ENCOUNTER 2024-02-11 10:56 | Outpatient (REF) | payer MEDICARE, SELFPAY ==
[2024-02-11 12:36] LABS: MANUAL DIFF FLAG NO
[2024-02-11 13:01] LABS: Basophils Percent Auto 0.6 % (0-2); Eosinophils Absolute Auto 0.1 X10*3/uL (0.0-0.4); Hematocrit 38.4 % (37.0-47.0); Hemoglobin 12.6 g/dl (12.0-16.0); Imm Gran Abs Auto 0.01 X10*3/uL (0.00-0.03); Imm Gran Pct Auto 0.2 % (0.0-0.4); Lymphocytes Absolute Auto 2.3 X10*3/uL (1.2-4.9); Lymphocytes Percent Auto 44.8 % (20-40); Mean Corpuscular HGB Conc 32.8 g/dl (31.0-35.0); Mean Corpuscular Hemoglobin 29.7 pg (27.0-33.0); Mean Corpuscular Volume 90.6 fL (80.0-98.0); Mean Platelet Volume 9.2 fL (9.4-12.3); Monocytes Absolute Auto 0.4 X10*3/uL (0.1-1.2); Monocytes Percent Auto 8.6 % (2-11); Neutrophils Absolute Auto 2.2 x10*3/uL (2.0-8.3); Neutrophils Percent Auto 43.8 % (45-73); Platelet Count 275 X10*3/uL (160-400); Red Blood Count 4.24 X10*6/uL (4.20-5.50); Red Cell Distribution Width 13.5 % (11.0-16.0); White Blood Count 5.1 X10*3/uL (4.8-10.8)
[2024-02-11 13:05] LABS: Appearance Urine Clear; Color Urine Yellow; Glucose Urine UA Negative (Negative); Leukocyte Esterase Urine Negative (Negative); Nitrite Urine Negative (Negative); PH 5.5 (5.0-9.0); Urine Blood Negative (Negative); Urine Ketones Negative (Negative); Urine Protein Negative (Neg-Trace)
[2024-02-11 14:35] LABS: Iron 85 mcg/dL (30-160); Percent Iron Saturation 35 % (15-50); Total Iron Binding Capacity 242 mcg/dL (228-428); Unsaturated Iron Binding 157 ug/dL
[2024-02-11 14:43] LABS: Ferritin 288 ng/mL (10-250)
== END 2024-02-11 10:57 | disposition home or self-care (01) ==
LOC: HO.LAB 10:56
PROVIDERS: PCP Internal Medicine; Visit Provider Internal Medicine
DX: R30.0 Dysuria (principal); D64.9 Anemia, unspecified; D50.9 Iron deficiency anemia, unspecified; E83.119 Hemochromatosis, unspecified; L65.9 Nonscarring hair loss, unspecified; I10 Essential (primary) hypertension; E78.00 Pure hypercholesterolemia, unspecified; G43.011 Migraine without aura, intractable, with status migrainosus; M50.30 Other cervical disc degeneration, unspecified cervical region; K21.00 Gastro-esophageal reflux disease with esophagitis, without bleeding; R20.2 Paresthesia of skin; N32.81 Overactive bladder; E66.9 Obesity, unspecified; Z12.83 Encounter for screening for malignant neoplasm of skin
CPT/HCPCS: 36415; 81003; 82728; 83540; 85025; 99212

== ENCOUNTER 2024-04-02 09:09 | Outpatient (REF) | payer MEDICARE, SELFPAY ==
--- OUTSIDE RECORDS SUMMARY | 2024-04-02 09:11 | XMS_ITS | Patient Health Record ---
Author [facility] Address [address] [place] [address] Care Team Providers Care Preparation Department Supervisor Name Role Phone Christina Ding MDh Primary Care Provider Unava ilable Black, Taylor Unavailable [phone] Allergies Allergen (clinical drug ingredient) Drug/Non Drug Allergy documented on EMR Reaction Allergy Type Onset Date Status acetaminophen / oxycodone Percocet Unknown Drug Allergy Active Vicodin Unknown Drug Allergy Active Reason For Referral No Information Medications Medication SIG (Take, Route, Frequency, Duration) Notes Start Date End Date Status Omeprazole 20 MG 1 capsule 30 minutes before morning meal Orally Once a day for 30 day(s) Active Methenamine Hippurate 1 GM Oral for 30 Active Xiidra 5 % Ophthalmic for 90 A ctive Emgality 120 MG/ML Subcutaneous for 30 Active Celecoxib 200 MG 1 capsule with food Orally Once a day for 30 day(s) 12/10/2020 Active oxyBUTYnin Chloride 5 MG TAKE 1 TABLET B Y MOUTH THREE TIMES DAILY Oral for 60 Active Social History Tobacco Use: Social History Observation Description Date Details (start date - stop date) Former Smoker NA - NA Tobacco Use/Smoking Question Answer Notes Are you a: former smoker Additional Findings: Tobacco Non-User Current no n-smoker Alcohol Screen Question Answer Notes Did you have a drink contain ing alcohol in the past year? Yes How often did you have a dri nk containing alcohol in the past year? 2 to 4 times a month (2 points) How often did you have 6 or more drinks on one occasion in the past year? Monthly (2 points) Points 4 Interpretation Positive Tobacco use other than smoking: Question Answer Notes Are you an other tobacco user? 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) Active confirmed Problem Plantar nerve lesion (142707280) Lesion of plantar nerve, left lower limb (G57.62) Active confirmed Problem Acquired deformity of right foot (334652280095 44658) PlantarFlexion of metatarsal of right foot (M21.6X1) Active confirmed Problem Acquired deformity of left foot (842040166902 97845) PlantarFlexion of metatarsal of left foot (M21.6X2) Active confirmed Plan Of Treatment No Information Insurance Providers Payer Name Payer Address Payer Phone Subscriber Number Group Number Insured Name Patient Relationship to Insured Coverage Start Date Coverage End Date [facility] [address] [place] [address] [id number] Leila Finney Self - patient is the insured Medical (General) History Medical History History ICD Code Back,Hip,and Knee pain Cataracts Headaches/Migraines Measles Mumps Chicken pox Joint implants/screws Reflux Sciatica Surgical History Surgery Date(Month/Year) back surgery achilles tendon surgery colonoscopy wisdom teeth extraction
[2024-04-02 11:26] LABS: Glucose Fasting 99 mg/dL (60-99)
[2024-04-02 11:27] LABS: Estimated Average Glucose 103 mg/dL; Hemoglobin A1C 112.0576 umol/L; Hemoglobin A1c % 5.2 % (<6.0); Total Hemoglobin (HGBA1C) 3340.8101 umol/L
== END 2024-04-02 09:10 | disposition home or self-care (01) ==
LOC: HO.HMGCLDS 09:09
PROVIDERS: PCP Internal Medicine; Visit Provider Internal Medicine
DX: E11.9 Type 2 diabetes mellitus without complications (principal)
CPT/HCPCS: 36415; 82947; 83036

== ENCOUNTER 2024-09-11 05:49 | Emergency (ER) | payer MEDICARE, SELFPAY ==
--- NOTE | 2024-09-11 | ECG_ITS ---
Test Reason : CHEST PAIN Blood Pressure : */* mmHG Vent. Rate : 73 BPM Atrial Rate : 73 BPM P-R Int : 180 ms QRS Dur : 78 ms QT Int : 382 ms P-R-T Axes : 32 33 26 degrees QTcB Int : 420 ms Normal sinus rhythm Normal ECG When compared with ECG of 01-Jul-2021 07:13, Nonspecific T wave abnormality has replaced inverted T waves in Inferior leads Referred By: Generic ED Physician Electronically Signed By: NIRAV MOFFETT MD
--- NOTE | ~2024-09-11 | CT_ITS ---
CLINICAL HISTORY: pleuritic chest pain, recent surgery CT angiography chest with contrast. MIP postprocessing. Comparison: CR - XR CHEST 2V - 09/11/24 06:21 EDT Findings: Images degraded by respiratory motion. Given this limitation, there is appropriate contrast opacification of the main, lobar, and segmental pulmonary arteries. No discrete filling defects identified to suggest pulmonary embolism. Thoracic aorta is nonaneurysmal. Overall heart size is within normal limits. No focal areas of consolidation. There are few areas of hazy density in the lungs. No pleural effusion or pneumothorax. Small hiatal hernia. No free fluid or free air within the upper abdomen. No acute bony lesions. IMPRESSION: 1. No pulmonary embolus. 2. Scattered areas of hazy density can be seen with atelectasis, mild edema, or mild pneumonitis. No consolidative pneumonia. This document has been electronically signed by: Judd Klein MD on 09/11/2024 08:30:45
--- NOTE | ~2024-09-11 | XR_ITS ---
CLINICAL HISTORY: chest pain Exam: PA and lateral views of the chest. Comparison: None. Findings: Lungs are well inflated. Mediastinal contours, cardiac silhouette, and pulmonary vasculature are within normal limits. No focal areas of consolidation. No pleural effusion or pneumothorax. Impression: No acute findings. This document has been electronically signed by: Judd Klein MD on 09/11/2024 08:25:27
[2024-09-11 05:59] VITALS: BP 155/85; PULSE 77; RESP 17; TEMP 36.6; O2SAT 100; BMI 31.8
[2024-09-11 06:11] LABS: MANUAL DIFF FLAG NO
[2024-09-11 06:34] LABS: Anion Gap 14 (12-20); Blood Urea Nitrogen 27 mg/dL (9-16); Calcium 9.9 mg/dL (8.4-10.2); Carbon Dioxide 26 mmol/L (22-29); Chloride 105 mmol/L (96-108); Creatinine Clr Calc Pharmacy 58.9; Estimated Glomerular Filt Rate 57; Glucose Random 98 mg/dL (60-115); Sodium 141 mmol/L (135-145); Troponin-I High Sensitivity < 2.7 ng/L (<3.5-17.0)
[2024-09-11 06:35] LABS: Alanine Aminotransferase 38 U/L (0-31); Albumin Level 4.3 g/dL (3.5-5.0); Alkaline Phosphatase 74 U/L (39-117); Aspartate Amino Transferase 34 U/L (5-31); Bilirubin Direct 0.2 mg/dL (0.0-0.5); Bilirubin Total 0.4 mg/dL (0.0-1.0); Magnesium 1.9 mg/dL (1.6-2.6); Total Protein 6.9 g/dL (6.5-8.0)
[2024-09-11 06:43] LABS: Basophils Percent Auto 0.4 % (0-2); Eosinophils Absolute Auto 0.2 X10*3/uL (0.0-0.4); Eosinophils Percent Auto 4.4 % (0-4); Hematocrit 37.1 % (37.0-47.0); Hemoglobin 12.5 g/dl (12.0-16.0); Imm Gran Abs Auto 0.01 X10*3/uL (0.00-0.03); Imm Gran Pct Auto 0.2 % (0.0-0.4); Lymphocytes Absolute Auto 2.5 X10*3/uL (1.2-4.9); Lymphocytes Percent Auto 45.4 % (20-40); Mean Corpuscular HGB Conc 33.7 g/dl (31.0-35.0); Mean Corpuscular Hemoglobin 29.5 pg (27.0-33.0); Mean Corpuscular Volume 87.5 fL (80.0-98.0); Monocytes Absolute Auto 0.4 X10*3/uL (0.1-1.2); Monocytes Percent Auto 7.5 % (2-11); Neutrophils Absolute Auto 2.3 x10*3/uL (2.0-8.3); Neutrophils Percent Auto 42.1 % (45-73); Platelet Count 287 X10*3/uL (160-400); Red Blood Count 4.24 X10*6/uL (4.20-5.50); Red Cell Distribution Width 13.6 % (11.0-16.0); White Blood Count 5.5 X10*3/uL (4.8-10.8)
--- NOTE | 2024-09-11 07:05 | ED_ITS ---
HPI - Chest Pain General Chief Complaint: Chest Pain Stated Complaint: Chest Pain Time Seen by Provider: 09/11/24 06:53 Source: patient and old records reviewed Mode of arrival: ambulatory Limitations: no limitations History of Present Illness ED Provider: DARBY RHOADES narrative: 68 yo female with PMH Of HTN, HLD, anxiety, GERD, s/p bladder sling 1 month ago at [facility], reports her mom had CHF and dad had heart disease. She had a nuclear stress test a few years ago. She was woken up today with c/o central chest pain radiating around her lower chest then she gets sharp intermittent pleuritic chest pain in the back. She has no cough/fevers. No n/v and no dyspnea. She notes she has no pain now other than sharp intermittent L posterior back pain. She tells me in the past few months she will be at the gym then become completely weak with diarrhea and sweats. She has not seen her doctor for this. MD complaint: chest pain Onset (ago): hour(s) (430am today) Timing of current episode: now resolved Prior episodes: No Onset: during rest Pain location: substernal, left chest and right chest Pain radiation: left scapula and right scapula Severity: moderate Quality: heaviness and sharp Relieving factors: nothing Exacerbating factors: inspiration Context: recent surgery Treatment prior to arrival: other Related Data Home Medications ?Medication ?Instructions ?Recorded ?Confirmed galcanezumab-gnlm 120 mg/mL mg subcut .f2zwent 05/16/21 02/11/24 subcutaneous pen injector (Emgality Pen) cyclosporine 0.05 % eye drops in a drp ophthalmic (eye) 06/24/22 02/11/24 dropperette biotin 10 mg tablet 1,000 mg PO DAILY 10/13/22 02/11/24 Previous Rx's ?Medication ?Instructions ?Recorded wedge pillow #1 ea 02/18/22 cetirizine 10 mg tablet 10 mg PO DAILY 30 days #30 tabs 10/19/23 famotidine 20 mg tablet 20 mg PO BID 30 days #60 tabs 10/19/23 montelukast 10 mg tablet 10 mg PO QPM 30 days #30 tabs 10/19/23 atorvastatin 10 mg tablet 10 mg PO BEDTIME 90 days #90 tabs 05/02/24 hydrochlorothiazide 12.5 mg tablet 12.5 mg PO DAILY 90 days #90 tabs 05/08/24 Allergies Allergy/AdvReac Type Severity Reaction Status Date / Time oxycodone [From PERCOCET] Allergy Severe HIVES Verified 09/11/24 06:00 hydrocodone [From VICODIN] AdvReac Severe PASS Verified 09/11/24 06:00 OUT/VOMITING atorvastatin AdvReac Intermediate myalgia Verified 09/11/24 06:00 rosuvastatin AdvReac Intermediate myalgia Verified 09/11/24 06:00 Monistat 1 Allergy Severe Rash Uncoded 09/11/24 06:00 Suprep Bowel Prep AdvReac Severe Nausea and Uncoded 09/11/24 06:00 Vomiting Review of Systems 2 Review of Systems: Constitutional : No Weight loss, No Fever, No Chills ENT/Mouth : No sore throat, No Rhinorrhea Eyes: No Eye Pain, No Swelling Cardiovascular : no Chest Pain, no SOB, no Dyspnea on Exertion, No Orthopnea, No Edema, No Palpitations Respiratory : No Cough, No Sputum Gastrointestinal : pos Nausea, No Vomiting, No Diarrhea, No abdominal Pain, No Hematochezia, No Melena Genitourinary : No Dysuria, No Urinary Frequency Musculoskeletal : No joint pain, No Myalgias, No Joint Swelling Skin : No Skin Lesions, No rash Neuro : No Weakness, No Numbness, No Dizziness, No Headache All other systems reviewed and are negative [facility] Past Medical History Attestation statement: The following information was validated with the patient. Source: old records reviewed Medical History Overactive bladder Obesity (BMI 30-39.9) GERD with esophagitis Personal history of COVID-19 PONV (postoperative nausea and vomiting) Impaired fasting glucose Pure hypercholesterolemia Benign essential hypertension GERD (gastroesophageal reflux disease) Dizziness Cataract Lumbar degenerative disc disease History of paroxysmal supraventricular tachycardia History of deep venous thrombosis (~2002) Migraine Mitral valve prolapse Surgical History History of esophagogastroduodenoscopy (EGD) History of colonoscopy (~06/28/15) History of surgery (~2002) History of surgery Family History Family History Father Diabetes Hypertension Stroke Cardiovascular disease Mother Myocardial infarction Social History Social History Housing: House Are you a primary in home caregiver to a significant other at home: No Do you presently have visiting nurse or other home services: No Alcohol intake: current Alcohol intake frequency: a few times a week Patient Tobacco Use Status: Former Tobacco user Smoked in Last 30 Days: No e-Cigarette/Vaping Use: Never Used Second Hand Smoke Exposure: Yes Use of substances other than those prescribed or required for medical reasons: No Advance Directives: No Advance Directives Information Provided: Yes Do you have a plan to hurt others: No Plan service: No Current occupational status: retired Cognitive needs: No Hearing needs: No Vision needs: Yes Physical Exam 2 Vital Signs: Vital Signs: Last Vital Signs Temp 97.8 F 09/11/24 10:09 Pulse 68 09/11/24 10:09 Resp 15 09/11/24 10:09 BP 125/73 09/11/24 10:09 Pulse Ox 98 09/11/24 10:09 O2 Del Method Room Air 09/11/24 10:09 BMI result Body Mass Index 31.8 Appearance: Alert. Oriented X3. No acute distress. Eyes: Pupils equal, round and reactive to light. ENT: Pharynx normal. Neck: Normal inspection. Neck supple. CVS: Normal heart rate and rhythm. Pulses normal. Respiratory: No respiratory distress. Breath sounds normal. Abdomen: Soft and nontender. Skin: Skin warm and dry. Normal skin color. Normal skin turgor. Extremities: No lower extremity edema. No calf ttp Neuro: Oriented X 3. No motor deficit. No sensory deficit. CN2-12 intact Course Course Course Narrative: has no URI symptoms to suggest pneumonitis Medications Administered Discontinued Medications Generic Name Dose Route Start Last Admin Trade Name Freq PRN Reason Stop Dose Admin Iohexol 100 ml 09/11/24 07:58 09/11/24 07:59 Iohexol 350 Mg/Ml 100 Ml Infus..Btl IV 09/11/24 07:59 65 ml ONCE ONE Administration Medical Decision Making Medical Decision Making MDM Narrative: 68 yo female with PMH Of HTN, HLD, anxiety, GERD, s/p bladder sling 1 month ago at [facility], here with chest pain across chest and then pleuritic component to back. She has no chest pain at the moment and declines medications but c/o intermittent sharp pain in back. At this time given her age and history she will get delta troponin and CTA of chest to look for VTE as she had recent surgery and will eval aorta. She has equal pulses and is not in distress so dissection seems less likely but will eval. Possible ACS, VTE, dissection, GERD. Differential Diagnosis Differential Diagnoses: The differential diagnosis associated with the presentation includes ACS, VTE, dissection, GERD Admission/Observation Consideration of admission/observation: Escalation of care including admission/observation considered negative EKG, CTA negative, trop negative x 2 HEART score 3 negative CTA of chest, trop flat x 2, EKG negative, at this time would refer to her PCP for urgent stress test and start on 81mg baby aspirin Lab Data MDM Lab Attestation statement: I reviewed the patient's lab results. 09/11/24 06:08 09/11/24 06:08 Labs: Lab Results 09/11/24 09/11/24 Range/Units 06:08 09:48 WBC 5.5 (4.8-10.8) X10*3/uL RBC 4.24 (4.20-5.50) X10*6/uL Hgb 12.5 (12.0-16.0) g/dl Hct 37.1 (37.0-47.0) % MCV 87.5 (80.0-98.0) fL MCH 29.5 (27.0-33.0) pg MCHC 33.7 (31.0-35.0) g/dl RDW 13.6 (11.0-16.0) % Plt Count 287 (160-400) X10*3/uL MPV 9.0 L (9.4-12.3) fL Immature Gran % (Auto) 0.2 (0.0-0.4) % Neut % (Auto) 42.1 L (45-73) % Lymph % (Auto) 45.4 H (20-40) % [place] % (Auto) 7.5 (2-11) % Eos % (Auto) 4.4 H (0-4) % Baso % (Auto) 0.4 (0-2) % Lymph # (Auto) 2.5 (1.2-4.9) X10*3/uL [place] # (Auto) 0.4 (0.1-1.2) X10*3/uL Eos # (Auto) 0.2 (0.0-0.4) X10*3/uL Baso # (Auto) 0.0 (0.0-0.2) X10*3/uL Abs Immat Gran (auto) 0.01 (0.00-0.03) X10*3/uL Absolute Neuts (auto) 2.3 (2.0-8.3) x10*3/uL Absolute Nucleated RBC 0.000 (0.0-0.012) X10*3/uL Nucleated RBC % (auto) 0.0 (0.0-0.2) /100WBC Sodium 141 (135-145) mmol/L Potassium 4.0 (3.3-5.1) mmol/L Chloride 105 (96-108) mmol/L Carbon Dioxide 26 (22-29) mmol/L Anion Gap 14 (12-20) BUN 27 H (9-16) mg/dL Creatinine 0.97 (0.5-1.4) mg/dL Estim Creat Clear Calc 58.9 Estimated GFR 57 Random Glucose 98 (60-115) mg/dL Calcium 9.9 (8.4-10.2) mg/dL Magnesium 1.9 (1.6-2.6) mg/dL Total Bilirubin 0.4 (0.0-1.0) mg/dL Direct Bilirubin 0.2 (0.0-0.5) mg/dL AST 34 H (5-31) U/L ALT 38 H (0-31) U/L Alkaline Phosphatase 74 (39-117) U/L Troponin I High Sens < 2.7 < 2.7 (<3.5-17.0) ng/L Total Protein 6.9 (6.5-8.0) g/dL Albumin 4.3 (3.5-5.0) g/dL Independent Interpretation I performed an independent interpretation of an: EKG, Plain X-Ray (normal ) and CT Scan (normal ) Interpretation: Rate: 73 Rhythm: NSR [place]: normal Normal P waves. Normal JOSE. Normal QRS complex. ST T wave : inverted t wave V1, no ELVIRA qTC: 420 prior studies: no acute ischemia The study has been interpreted contemporaneously by me. . Radiology Impression Discussion of test interpretation with radiology: I have reviewed the radiologist's reading. Independent Historian Clinical information obtained from an independent historian. History obtained from or confirmed by: Spouse External Record Review External record reviewed: Outpatient record Prescription Management I considered prescription management with: Other Discharge Plan Discharge Clinical Impression: Chest pain Patient Disposition: Home, Self-Care Instructions: Chest Pain (ED) Additional Instructions: your EKG and two heart tests for troponin are normal a CT scan of your chest does not show any aneurysm, dissection, blood clot please stop doing any strenuous activity and please start on 81mg aspirin daily please return for any worsening symptoms or concerns you need to talk to your doctor about urgent outpatient stress test next week. Prescriptions: No Action atorvastatin 10 mg tablet 10 mg PO BEDTIME 90 Days Qty: 90 1RF hydrochlorothiazide 12.5 mg tablet 12.5 mg PO DAILY 90 Days Qty: 90 1RF biotin 10 mg tablet 1,000 mg PO DAILY cetirizine 10 mg tablet 10 mg PO DAILY 30 Days Qty: 30 2RF montelukast 10 mg tablet 10 mg PO QPM 30 Days Qty: 30 2RF famotidine 20 mg tablet 20 mg PO BID 30 Days Qty: 60 1RF Emgality Pen 120 mg/mL pen injector subcut .[id number] cyclosporine 0.05 % dropperette ophthalmic (eye) (DME) wedge pillow See Rx Instructions .Route .MEDSUPPLY Qty: 1 0RF Rx Instructions: As directed Print Language: Croatian
[2024-09-11 07:06] VITALS: BP 130/78; PULSE 70; RESP 16; TEMP 36.7; O2SAT 97
[2024-09-11] MEDS: iohexoL 350 MG/ML 100 ML INFUS..BTL IV (07:59)
[2024-09-11 10:09] VITALS: BP 125/73; PULSE 68; RESP 15; TEMP 36.6; O2SAT 98
[2024-09-11 10:18] LABS: Troponin-I High Sensitivity < 2.7 ng/L (<3.5-17.0)
[2024-09-11 11:05] VITALS: BP 125/73; PULSE 68; RESP 15; TEMP 36.6; O2SAT 98
== END 2024-09-11 11:07 | disposition home or self-care (01) ==
PROVIDERS: Emergency Provider Emergency Medicine; PCP Internal Medicine
DX: R07.9 Chest pain, unspecified (principal); I10 Essential (primary) hypertension; K21.9 Gastro-esophageal reflux disease without esophagitis; E78.5 Hyperlipidemia, unspecified; Z79.899 Other long term (current) drug therapy
CPT/HCPCS: 36415; 71046; 71275; 80048; 80076; 83735; 84484; 85025; 93005; 99284; 99285; Q9967

== ENCOUNTER → 2024-09-11 05:50 | Outpatient (BNV) | payer MEDICARE, SELFPAY | PROVIDERS: Emergency Provider Emergency Medicine; PCP Internal Medicine; Visit Provider Internal Medicine Cardiovascular Disease | DX: R07.9 Chest pain, unspecified (principal) | CPT/HCPCS: 93010 ==

== ENCOUNTER → 2024-09-11 06:15 | Outpatient (BNV) | payer MEDICARE, SELFPAY | PROVIDERS: Emergency Provider Emergency Medicine; PCP Internal Medicine; Visit Provider Radiology Diagnostic Radiology | DX: R07.81 Pleurodynia (principal) | CPT/HCPCS: 71046; 71275 ==

== ENCOUNTER 2024-10-10 13:52 | Outpatient (AMB) | payer MEDICARE, SELFPAY ==
[2024-10-10 13:57] VITALS: BP 124/86; PULSE 68; TEMP 36.7; O2SAT 98
--- NOTE | 2024-10-10 13:57 | MHC.OFFWIV ---
Intake Vital Signs 10/10/24 13:57 Height 5 ft 4 in BMI Reason not done Patient refused/unable BP 124/86 Blood Pressure Location Lt brachial Position Sitting Pulse 68 Pulse Source Pulse Oximeter Temp 98.1 F Temp Source Oral Pulse Oximetry (%) 98 Oxygen Delivery Method Room Air Intake Visit Reasons: EP-sinus infection Intake Note: pt presents with chest congestion, productive cough w/ green phlegm, sinus congestion, lynne ear pain/pressure, jaw pain, headache comes and goes s/p cold 3wks ago Patient Tobacco Use Status: Former Tobacco user Allergies oxycodone (From PERCOCET) Allergy (Severe, Verified 10/10/24 14:03) HIVES hydrocodone (From VICODIN) Adverse Reaction (Severe, Verified 10/10/24 14:03) PASS OUT/VOMITING atorvastatin Adverse Reaction (Intermediate, Verified 10/10/24 14:03) myalgia rosuvastatin Adverse Reaction (Intermediate, Verified 10/10/24 14:03) myalgia Monistat 1 Allergy (Severe, Uncoded 09/11/24 06:00) Rash Suprep Bowel Prep Adverse Reaction (Severe, Uncoded 09/11/24 06:00) Nausea and Vomiting Do you need a note to return to daycare/school/sports/work: No HPI HPI Comments History of Present Illness Details History of Present Illness - The patient is a 69-year-old female presenting with symptoms of an upper respiratory tract infection. - Symptoms began three weeks ago with a common cold, initially improving before worsening. - Two days ago, symptoms returned with increased severity, including green sputum and persistent cough. - Has sinus pain and pressure with post-nasal drip into the chest. - No fever reported; no antibiotics or decongestants taken. - Patient plans to travel in 10 days, expressing concern about current health. - She denies fever, chills, CP, SOB, abd pain, n/v/d, dizziness, sick contacts or travel. Physical Exam General: Cooperative, healthy appearing, comfortable, no acute distress and well developed Head: Normal to inspection Ears: Hearing grossly normal bilaterally. No tragus or mastoid tenderness noted. Auditory canals clear bilaterally. TM's normal, not bulging. No fluid noted. Nose: Normal external nose present. Moist mucosa. Turbinates normal bilaterally, not boggy. Face and sinus: Tenderness to palpation of the frontal and maxillary sinuses bilaterally. Neck: Normal visual inspection and Yes full ROM. No lymphadenopathy noted. Respiratory: Normal respiratory effort and able to speak in complete sentences. Clear to auscultation bilaterally Cardiovascular: Regular rate and rhythm. Normal S1 and S2 GI: Normal to inspection. Soft to palpation and nontender, nondistended. No guarding noted. Skin: No rashes or lesions noted [facility]LY [facility], [facility] Medical History Overactive bladder Obesity (BMI 30-39.9) GERD with esophagitis Personal history of COVID-19 PONV (postoperative nausea and vomiting) Impaired fasting glucose Pure hypercholesterolemia Benign essential hypertension GERD (gastroesophageal reflux disease) Dizziness Cataract Lumbar degenerative disc disease History of paroxysmal supraventricular tachycardia History of deep venous thrombosis (~2002) Migraine Mitral valve prolapse Surgical History History of esophagogastroduodenoscopy (EGD) History of colonoscopy (~06/28/15) History of surgery (~2002) History of surgery Family History Father Diabetes Hypertension Stroke Cardiovascular disease Mother Myocardial infarction Social History Housing: House Are you a primary career technical education teacher to a significant other at home: No Do you presently have visiting nurse or other home services: No Alcohol intake: current Alcohol intake frequency: a few times a week Patient Tobacco Use Status: Former Tobacco user e-Cigarette/Vaping Use: Never Used Second Hand Smoke Exposure: Yes service: No Current occupational status: retired Cognitive needs: No Hearing needs: No Vision needs: Yes Review of Systems Const All systems reviewed & are unremarkable except as noted in HPI and below Physical Exam Vital Signs: Last Vital Signs Temp 98.1 F 10/10/24 13:57 Pulse 68 10/10/24 13:57 BP 124/86 10/10/24 13:57 Pulse Ox 98 10/10/24 13:57 Oxygen Delivery Method Room Air 10/10/24 13:57 Assessment & Plan Assessment & Plan (1) Sinusitis, acute: Code(s): J01.90 - Acute sinusitis, unspecified Qualifiers: Sinusitis location: unspecified location Recurrence: non-recurrent Qualified Code(s): J01.90 - Acute sinusitis, unspecified Plan Most likely sinusitis vs URI vs allergic rhinitis Plan - tylenol or motrin as needed - steam showers daily - Flonase daily - Zyrtec D daily - Augmentin BID for 10 days - follow up as needed if no better Medications: New amoxicillin-pot clavulanate 875-125 mg 1 tab PO Q12H 14 tabs 0RF fluticasone propionate 50 mcg/actuation administer into each nostril 1 spray intranasal Q12H 16 grams 0RF cetirizine-pseudoephedrine 5-120 mg ER 1 tab PO BID 14 tabs 0RF 7 days Coding Level of Care Code Est Pt Level 3 (18569) Diagnoses Acute non-recurrent sinusitis, unspecified location J01.90 Sinusitis location: unspecified location Recurrence: non-recurrent
--- OUTSIDE RECORDS SUMMARY | 2024-10-10 14:23 | XMS_ITS | Encounter Summary ---
Author Organization [facility] Address [address] [place] [address] Care Team Providers Care Blowing Weasand Name Role Phone Bryon Ding MD Primary Care Provider + [phone] Encounter Details Date Type Department Care Team (Late st Contact Info) Description 08/30/2024 Lab Requisition [facility] - Main Lab [address] [facility] [place] [phone] Carolyn Phillips MD [address] [facility] [address] [place] [address] Pyuria Social History Tobacco Use Types Packs/Day Years Used Date Smoking Tobacco: Former Smokeless Tobacco: Never Alcohol Use Standard Drinks/Week Comments Not Currently 4 (1 standard drink = 0.6 oz pur e alcohol) Interpersonal Safety Answer Date Record ed Physical Abuse 08/15/2024 Verbal Abuse 08/15/2024 Comments Unknown Sex and Gender Information Value Date Recorded Sex Assigned at Not on file Legal Sex Female 3:35 AM EST Gender Identity Not on file Sexual Orientation Not on file documented as of this encounter Plan of Treatment Not on file documented as of this encounter Procedures Procedure Name Priority Date/Time Associated Diagnosis Comments BACTERIAL IDENTIFICATION AND SUSCEPTIBILITY, AEROBIC Routine 08/29/2024 12:00 AM EDT Pyuria documented in this encounter Results * Bacterial identification and susceptibility, aerobic (08/29/2024 12:00 AM EDT) Culture, Bacterial ID and Sensitivity Mixed urogenital carmen, no uropathogens present. Suggest repeat specimen, if clinically indicated. 08/31/2024 8:59 AM EDT [facility] Other Urine specimen from urethra / Unknown 08/29/2024 08/30/2024 10:04 AM EDT us Carolyn Phillips MD LAB MICROBIOLOGY - G ENERAL ORDERABLES Final Result [facility] [address] [place] [address], documented in this encounter Visit Diagnoses Diagnosis Pyuria Other nonspecific finding on examination of urine documented in this encounter Care Teams Blowing Weasand Relationship Specialty Start Date End Date Bryon Ding MD [address] [place] [address] Dr [address] [place], [place] PCP - General 11/27/09 documented as of this encounter
--- OUTSIDE RECORDS SUMMARY | 2024-10-10 14:23 | XMS_ITS | Patient Health Record ---
Author Organization [facility] Address [address] [place] [address] Care Team Providers Care Drafting Layout Man Name Role Phone Bryon Ding MD Primary Care Provider Stephen Fonseca [phone] Allergies Allergen (clinical drug ingredient) Drug/Non Drug Allergy documented on EMR Reaction Allergy Type Onset Date Status Vicodin Unknown Drug Allergy Active acetaminophen / oxycodone Percocet Unknown Drug Allergy Active Reason For Referral No Information Medications Medication SIG (Take, Route, Frequency, Duration) Notes Start Date End Date Status Methenamine Hippurate 1 GM 1 tablet Oral ly Twice a day Active Omeprazole 20 MG 1 capsule Orally Onc e a day Active Piroxicam 20 MG 1 capsule with food Orally Once a day Active Suprep Bowel Prep 1 kit as directed Oral ly as directed for 1 dose 04/25/2015 Active oxyBUTYnin Chloride 5 MG 1 tablet Orally Twice a day Active Problems Problem Type SNOMED Code ICD Code Onset Dates Problem Status W/U Status Risk Notes Problem 191395470 Encounter for screening for malignant neoplasm of colon (Z12.11) Active confirmed Problem 753254967 Irritable bowel syndrome with diarrhea (K58.0) Active confirmed Problem Screening for malignant neoplasm of rectum (359992104) Encounter for screening for malignant neoplasm of rectum (Z12.12) Active confirmed Problem 863550590 Gastroesophageal reflux disease without esophagitis (K21.9) Active confirmed Problem 22331659 Esophageal spasm (K22.4) Active confirmed Plan Of Treatment Future Test Test Name Order Date UPPER GI ENDOSCOPY 04/25/2015 COLONOSCOPY 04/25/2015 Insurance Providers Payer Name Payer Address Payer Phone Subscriber Number Group Number Insured Name Patient Relationship to Insured Coverage Start Date Coverage End Date [facility] [address] [facility] [place] [phone] [id number] ELIA NG Self - patient is the insured Medical (General) History Medical History History ICD Code Denies LA,DM,CVA,Lung disease,renal dise ase Overactive bladder GERD--small HH on a Barium swallow UTI's IBS-irregular BM's--describes a negative Flex sig with me in the 1989' negative gallbladder ultrasounds and nor mal HIDA scan with [facility] in 2009 Surgical History Surgery Date(Month/Year) Foot surgery x2 2002 Bladder suspension 1999
--- OUTSIDE RECORDS SUMMARY | 2024-10-10 14:23 | XMS_ITS | Patient Health Record ---
Author Organization [facility] Address [address] [place] [address] Care Team Providers Care Nuclear Medicine Physician Name Role Phone Christina Ding MDh Primary Care Provider Unava ilable Black, Taylor Unavailable [phone] Allergies Allergen (clinical drug ingredient) Drug/Non Drug Allergy documented on EMR Reaction Allergy Type Onset Date Status acetaminophen / oxycodone Percocet Unknown Drug Allergy Active Vicodin Unknown Drug Allergy Active Reason For Referral No Information Medications Medication SIG (Take, Route, Frequency, Duration) Notes Start Date End Date Status Omeprazole 20 MG 1 capsule 30 minutes before morning meal Orally Once a day; Duration: 30 day(s) Active Methenamine Hippurate 1 GM Oral; Duration: 30 Active Xiidra 5 % Ophthalmic; Duration: 90 Active Emgality 120 MG/ML Subcutaneous; Durati on: 30 Active Celecoxib 200 MG 1 capsule with food Orally Once a day; Duration: 30 day(s) 12/10/2020 Active oxyBUTYnin Chloride 5 MG TAKE 1 TABLET B Y MOUTH THREE TIMES DAILY Oral; Duration: 60 Active Social History Tobacco Use: Social [...] Problem Acquired hammer toe of right foot (423191334910 9105) Other hammer toe(s) (acquired), right foot (M20.41) Active confirmed Problem Acquired hammer toe of left foot (937323081264 9103) Other hammer toe(s) (acquired), left foot (M20.42) Active confirmed Problem Plantar nerve lesion (201003680) Lesion of plantar nerve, 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) Active confirmed Problem Plantar nerve lesion (049280276) Lesion of plantar nerve, left lower limb (G57.62) Active confirmed Problem PlantarFlexion o f metatarsal of right foot (M21.6X1) Active confirmed Problem PlantarFlexion o f metatarsal of left foot (M21.6X2) Active confirmed Plan Of Treatment No Information Insurance Providers Payer Name Payer Address Payer Phone Subscriber Number Group Number Insured Name Patient Relationship to Insured Coverage Start Date Coverage End Date [facility] [address] [place] [address] [id number] Leila Finney Self - patient is the insured Medical (General) History Medical History History ICD Code Back,Hip,and Knee pain Cataracts Headaches/Migraines Measles Mumps Chicken pox Joint implants/screws Reflux Sciatica Surgical History Surgery Date(Month/Year) back surgery achilles tendon surgery colonoscopy wisdom teeth extraction
== END 2024-10-10 14:36 | disposition home or self-care (01) ==
PROVIDERS: PCP Internal Medicine; Visit Provider Physician Assistant Medical
DX: J01.90 Acute sinusitis, unspecified (principal)

== ENCOUNTER → 2024-10-10 13:52 | Outpatient (BNVA) | payer MEDICARE, SELFPAY | PROVIDERS: PCP Internal Medicine; Visit Provider Physician Assistant Medical | DX: J01.90 Acute sinusitis, unspecified (principal) | CPT/HCPCS: 99212 ==

== ENCOUNTER 2024-10-18 09:20 | Outpatient (AMB) | payer MEDICARE, SELFPAY ==
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
--- OUTSIDE RECORDS SUMMARY | 2024-10-18 09:45 | XMS_ITS | Patient Health Record ---
Author Organization [facility] Address [address] [place] [address] Care Team Providers Care Wireless Construction Manager Name Role Phone Bryon Ding MD Primary Care Provider Stephen Fonseca [phone] Allergies Allergen (clinical drug ingredient) Drug/Non Drug [...] Problem Status W/U Status Risk Notes Problem [id number] Encounter for screening for malignant neoplasm of colon (Z12.11) Active confirmed Problem 363421534 Irritable bowel syndrome with diarrhea (K58.0) Active confirmed Problem Screening for malignant neoplasm of rectum (469143110) Encounter for screening for malignant neoplasm of rectum (Z12.12) Active confirmed Problem 839990941 Gastroesophageal reflux disease without esophagitis (K21.9) Active confirmed Problem 90585394 Esophageal spasm (K22.4) Active confirmed Plan Of Treatment Future Test Test Name Order Date UPPER GI ENDOSCOPY 04/25/2015 COLONOSCOPY 04/25/2015 Insurance Providers Payer Name Payer Address Payer Phone Subscriber Number Group Number Insured Name Patient Relationship to Insured Coverage Start Date Coverage End Date [facility] [address] [facility] [place] [phone] [id number] ELIA NG Self - patient is the insured Medical (General) History Medical History History ICD Code Denies [place],DM,CVA,Lung disease,renal dise ase Overactive bladder GERD--small HH on a Barium swallow UTI's IBS-irregular BM's--describes a negative Flex sig with me in the 1989' negative gallbladder ultrasounds and nor mal HIDA scan with CCK in 2009 Surgical History Surgery Date(Month/Year) Foot surgery x2 2002 Bladder suspension 1999
--- OUTSIDE RECORDS SUMMARY | 2024-10-18 09:45 | XMS_ITS | Patient Health Record ---
Author Organization [facility] Address [address] [place] [address] Care Team Providers Care Tablet Repair Name Role Phone Christina Ding MDh Primary Care Provider Unava ilable Black, Taylor Unavailable [phone] Allergies Allergen (clinical drug ingredient) Drug/Non Drug [...] Problem Acquired hammer toe of right foot (462344770771 9105) Other hammer toe(s) (acquired), right foot (M20.41) Active confirmed Problem Acquired hammer toe of left foot (082134406717 9103) Other hammer toe(s) (acquired), left foot (M20.42) Active confirmed Problem Plantar nerve lesion (068187099) Lesion of plantar nerve, 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) Active confirmed Problem Plantar nerve lesion (421261962) Lesion of plantar nerve, left lower limb (G57.62) Active confirmed Problem PlantarFlexion o f metatarsal of right foot (M21.6X1) Active confirmed Problem PlantarFlexion o f metatarsal of left foot (M21.6X2) Active confirmed Plan Of Treatment No Information Insurance Providers Payer Name Payer Address Payer Phone Subscriber Number Group Number Insured Name Patient Relationship to Insured Coverage Start Date Coverage End Date [facility] [address] [place] [address] [id number] Leila Finney Self - patient is the insured Medical (General) History Medical History History ICD Code Back,Hip,and Knee pain Cataracts Headaches/Migraines Measles Mumps Chicken pox Joint implants/screws Reflux Sciatica Surgical History Surgery Date(Month/Year) back surgery achilles tendon surgery colonoscopy wisdom teeth extraction
--- OUTSIDE RECORDS SUMMARY | 2024-10-18 09:45 | XMS_ITS | Encounter Summary ---
Author Organization [facility] Address [address] [place] [address] Care Team Providers Care Trolley Car Mechanic Name Role Phone Bryon Ding MD Primary Care Provider + [phone] Encounter Details Date Type Department Care Team (Late st Contact Info) Description 08/30/2024 Lab Requisition [facility] - Main Lab [address] [facility] [place] [id number] Carolyn Phillips MD [address] [facility] [address] [place] [address] Pyuria Social History Tobacco Use Types Packs/Day [...] if clinically indicated. 08/31/2024 8:59 AM EDT [facility] Other Urine specimen from urethra / Unknown 08/29/2024 08/30/2024 10:04 AM EDT us Carolyn Phillips MD LAB MICROBIOLOGY - G ENERAL ORDERABLES Final Result [facility] [address] [place] [address], documented in this encounter Visit Diagnoses Diagnosis Pyuria Other nonspecific finding on examination of urine documented in this encounter Care Teams Trolley Car Mechanic Relationship Specialty Start Date End Date Bryon Ding MD [address] [place] [address] Dr [address] [place], [place] PCP - General 11/27/09 documented as of this encounter
== END 2024-10-18 09:51 | disposition home or self-care (01) ==
LOC: HO.HSM 09:20
PROVIDERS: PCP Internal Medicine; Referring Provider Internal Medicine; Visit Provider Registered Nurse
DX: G43.011 Migraine without aura, intractable, with status migrainosus (principal)
CPT/HCPCS: 99214

== ENCOUNTER → 2024-10-18 09:20 | Outpatient (BNVA) | payer MEDICARE, SELFPAY | PROVIDERS: PCP Internal Medicine; Referring Provider Internal Medicine; Visit Provider Registered Nurse | DX: G43.011 Migraine without aura, intractable, with status migrainosus (principal) | CPT/HCPCS: 99212 ==

== ENCOUNTER → 2024-11-28 08:29 | Outpatient (REF) | payer MEDICARE, SELFPAY ==
--- NOTE | 2024-11-28 08:44 | CA_ITS ---
Acquisition Time: 2024-11-28 09:07:03 Total Exercise Time: 00:06:00 Test Indications: CP Medications: SEE H&P Protocol: DOMINICK Max HR: 153 BPM 100% of Pred: 152 BPM Max BP: 140/80 mmHG Max Work Load: 7.0 METS Exercise stress test with exercise 6 mins of Dominick Protocol, achieving 100% MPHR, without any reported symptoms of angina, without any arrythmias, with normotensive repsonse to exercise. Without any EKG changes meeting criteria for ischemia. In recovery, pt continued to feel well. Test reviewed with Dr. Matos. Referred By: Nirav Madison Electronically Signed By: Timmy Venegas
--- OUTSIDE RECORDS SUMMARY | 2024-11-28 08:56 | XMS_ITS | Encounter Summary ---
Author Organization [facility] [address] Care Team Providers Care Blueprint Blocker Name Role Phone Bryon Ding MD Primary Care Provider + [phone] Encounter Details Date Type Department Care Team (Late st Contact Info) Description 08/30/2024 Lab Requisition [facility] - Main Lab [address] [facility] [place] [phone] Carolyn Phillips MD [address] [facility] [address] [place] [address] Pyuria Social History Tobacco Use Types Packs/Day [...] if clinically indicated. 08/31/2024 8:59 AM EDT [facility] Other Urine specimen from urethra / Unknown 08/29/2024 08/30/2024 10:04 AM EDT us Carolyn Phillips MD LAB MICROBIOLOGY - G ENERAL ORDERABLES Final Result [facility] [address] [place] [address], documented in this encounter Visit Diagnoses Diagnosis Pyuria Other nonspecific finding on examination of urine documented in this encounter Care Teams Blueprint Blocker Relationship Specialty Start Date End Date Bryon Ding MD [address] [place] [address] Dr [address] [place], [place] PCP - General 11/27/09 documented as of this encounter
--- OUTSIDE RECORDS SUMMARY | 2024-11-28 08:56 | XMS_ITS | Patient Health Record ---
Author Organization [facility] Address [address] [place] [address] Care Team Providers Care Treatment Supervisor Name Role Phone Christina Ding MDh Primary Care Provider Unava ilable Black, Taylor Unavailable [phone] Allergies Allergen (clinical drug ingredient) Drug/Non Drug [...] Problem Acquired hammer toe of right foot (763932075934 9105) Other hammer toe(s) (acquired), right foot (M20.41) Active confirmed Problem Acquired hammer toe of left foot (831022573158 9103) Other hammer toe(s) (acquired), left foot (M20.42) Active confirmed Problem Plantar nerve lesion (417832127) Lesion of plantar nerve, 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) Active confirmed Problem Plantar nerve lesion (332075996) Lesion of plantar nerve, left lower limb (G57.62) Active confirmed Problem PlantarFlexion o f metatarsal of right foot (M21.6X1) Active confirmed Problem PlantarFlexion o f metatarsal of left foot (M21.6X2) Active confirmed Plan Of Treatment No Information Insurance Providers Payer Name Payer Address Payer Phone Subscriber Number Group Number Insured Name Patient Relationship to Insured Coverage Start Date Coverage End Date [facility] [address] [place] [address] [id number] Leila Finney Self - patient is the insured Medical (General) History Medical History History ICD Code Back,Hip,and Knee pain Cataracts Headaches/Migraines Measles Mumps Chicken pox Joint implants/screws Reflux Sciatica Surgical History Surgery Date(Month/Year) back surgery achilles tendon surgery colonoscopy wisdom teeth extraction
--- OUTSIDE RECORDS SUMMARY | 2024-11-28 08:56 | XMS_ITS | Patient Health Record ---
Author Organization [facility] Address [address] [place] [address] Care Team Providers Care Program Services Assistant Name Role Phone Bryon Ding MD Primary Care Provider Stephen Fonseca [phone] Allergies Allergen (clinical drug ingredient) Drug/Non Drug [...] Problem Status W/U Status Risk Notes Problem [id number] Encounter for screening for malignant neoplasm of colon (Z12.11) Active confirmed Problem 760785941 Irritable bowel syndrome with diarrhea (K58.0) Active confirmed Problem Screening for malignant neoplasm of rectum (233153614) Encounter for screening for malignant neoplasm of rectum (Z12.12) Active confirmed Problem 293635421 Gastroesophageal reflux disease without esophagitis (K21.9) Active confirmed Problem 69098697 Esophageal spasm (K22.4) Active confirmed Plan Of Treatment Future Test Test Name Order Date UPPER GI ENDOSCOPY 04/25/2015 COLONOSCOPY 04/25/2015 Insurance Providers Payer Name Payer Address Payer Phone Subscriber Number Group Number Insured Name Patient Relationship to Insured Coverage Start Date Coverage End Date [facility] [address] [facility] [place] [phone] [id number] ELIA NG Self - patient is the insured Medical (General) History Medical History History ICD Code Denies [place],DM,CVA,Lung disease,renal dise ase Overactive bladder GERD--small HH on a Barium swallow UTI's IBS-irregular BM's--describes a negative Flex sig with me in the 1989' negative gallbladder ultrasounds and nor mal HIDA scan with CCK in 2009 Surgical History Surgery Date(Month/Year) Foot surgery x2 2002 Bladder suspension 1999
--- OUTSIDE RECORDS SUMMARY | 2024-11-28 08:56 | XMS_ITS | Clinical Summary ---
Author Organization [facility] Address [address] [address] Phone Care Team Providers Care Skiagrapher Name Role Phone Bryon Ding MD Primary Care Provider [phone] Allergies Active Allergy Reactions Criticality Noted Date Comments Oxycodone-Acetaminophen Itching,Swelling Medium 2020 Hydrocodone-Acetaminophen Nausea and/or Vomiting,Syncope High 08/08/2020 Medications EMGALITY PEN 120 mg/mL subcutaneous injection INJECT 120 MG UNDER THE SKIN ONCE A MONTH DIRECTED 1 Active XIIDRA 5 % Dpet PLACE 1 DROP IN EACH EYE TWICE DAILY 1 Active methenamine (HIPREX) 1 gram tablet Take 1 g by mouth 2 (two) times a day. 1 Active omeprazole (PRILOSEC) 20 MG capsule Take 20 mg by mouth every morning. 1 Active oxybutynin (DITROPAN) 5 MG tablet Take 5 mg by mouth 3 (three) times a day. 1 Active SUMAtriptan (IMITREX) 100 MG tablet 1 Active Active Problems No known active problems Social History Tobacco Use Types Packs/Day Years Used Date Smoking Tobacco: Former Smokeless Tobacco: Never Alcohol Use Standard Drinks/Week Comments Yes 0 (1 standard drink = 0.6 oz pur e alcohol) Education Answer Date Recorded Are you interested in more education? Not on oxana e 08/08/2022 Are you concerned about learning? Not on file 08/08/2022 No 08/08/2022 No 08/08/2022 Digital Access Answer Date Recorded No 09/06/2022 No 09/06/2022 No 09/06/2022 Reliable internet access at home? Not on file 09/06/2022 Device with a working camera? Not on file Comments Unknown Sex and Gender Information Value Date Recorded Sex Assigned at Not on file Legal Sex Female 3:44 PM EDT Gender Identity Not on file Sexual Orientation Not on file Plan of Treatment Health Maintenance Due Date Last Done Comments LIPID PANEL 1956 DEPRESSION SCREENING 1968 SMOKING Hx and SMOKELESS TOBACCO SCREENING 1969 HEPATITIS C SCREENING 1974 MAMMOGRAM 1996 COLOGUARD 2001 COLONOSCOPY 2001 COLORECTAL CANCER SCREENING 2001 FIT TEST 2001 FOBT 2001 SIGMOIDOSCOPY 2001 VIRTUAL COLONOSCOPY 2001 PNEUMOCOCCAL VACCINES (50+ years) (1 of 1 - PCV) 2006 ZOSTER VACCINES (1 of 2) 2006 OSTEOPOROSIS SCREENING INITI AL (ONE-TIME) 2021 COVID-19 VACCINE (3 - 2023-2 5 season) 2023 06/15/2020, 05/18/2020 Adult Td,Tdap Booster 07/30/2026 07/30/2016 , 07/17/2014 RSV VACCINE (1 - 1-dose 75+ series) 09/15/2031 HEPATITIS A VACCINES Aged Out No long er eligible based on patient's age to complete this topic HIB VACCINES Aged Out No longer eligi ble based on patient's age to complete this topic MENINGOCOCCAL VACCINES (ACWY) Aged Out No longer eligible based on patient's age to complete this topic MENINGOCOCCAL VACCINES (B) Aged Out N o longer eligible based on patient's age to complete this topic Medical Devices Not on file Insurance [facility] [address] [place], [place] [id number] O O O [place] [address] HMO Care Teams Skiagrapher Relationship Specialty Start Date End Date Bryon Ding MD [address] [place] [address] Dr Andino [facility] [place] [id number] PCP - General Internal Medicine 08/08/20 Additional Source Comments The information contained in this document represents components of the legal health record. It is not the complete legal health record.[facility]
== END ==
LOC: HO.CARD 08:29
PROVIDERS: PCP Internal Medicine; Visit Provider Internal Medicine
DX: R07.2 Precordial pain (principal)
CPT/HCPCS: 93017

== ENCOUNTER → 2024-11-28 08:44 | Outpatient (BNV) | payer MEDICARE, SELFPAY | PROVIDERS: PCP Internal Medicine | DX: R07.9 Chest pain, unspecified (principal) | CPT/HCPCS: 93016; 93018 ==

== ENCOUNTER 2024-12-19 13:05 | Outpatient (AMB) | payer MEDICARE, SELFPAY ==
[2024-12-19 13:06] VITALS: BP 118/76; PULSE 88; O2SAT 96
--- NOTE | 2024-12-19 13:06 | A.OFFPC_ITS ---
Vital Signs 12/19/24 13:06 Height 5 ft 4 in BMI Reason not done Patient refused/unable BP 118/76 Blood Pressure Location Lt brachial Position Sitting Pulse 88 Pulse Source Pulse Oximeter Pulse Oximetry (%) 96 Oxygen Delivery Method Room Air Intake Visit Reasons: 6 Months f/u luh from 08/11/24 [employer] Wafer Required: No Accompanied by: Self / Same As Patient Allergies oxycodone (From PERCOCET) Allergy (Severe, Verified 02/07/25 08:33) HIVES hydrocodone (From VICODIN) Adverse Reaction (Severe, Verified 02/07/25 08:33) PASS OUT/VOMITING atorvastatin Adverse Reaction (Intermediate, Verified 02/07/25 08:33) myalgia rosuvastatin Adverse Reaction (Intermediate, Verified 02/07/25 08:33) myalgia Monistat 1 Allergy (Severe, Uncoded 02/07/25 08:33) Rash Suprep Bowel Prep Adverse Reaction (Severe, Uncoded 02/07/25 08:33) Nausea and Vomiting Medication List - Last Reconciled 02/12/25 by Bryon Ding MD amoxicillin-pot clavulanate 875-125 mg 1 tab PO BID 7 days atorvastatin 10 mg PO BEDTIME 90 days benzonatate 200 mg PO BEDTIME PRN biotin 1,000 mg PO DAILY cetirizine 10 mg PO DAILY 30 days cyclosporine 0.05% drps ophthalmic (eye) galcanezumab-gnlm (Emgality Pen) 120 mg subcut .monthly 30 days hydrochlorothiazide 12.5 mg PO DAILY 90 days methenamine hippurate 1 g PO BID methylprednisolone PO PER PKG DIR for 6 days methylprednisolone PO PER PKG DIR for 6 days minoxidil 1.25 mg PO DAILY sumatriptan succinate take 1 tab at onset of headache; if no relief may repeat 1 tab after at least 2 hrs; PO 30 days [wedge pillow As directed] Tobacco use date assessed: 12/19/24 Fall risk assessment: No Falls in past year Last assessed Fall Risk: 12/19/24 Dental Screening Dental Screen Date: 12/19/24 Did you have a dental visit in the last 12 months?: Yes Did you have a dental problem in the last 6 months where you did not have access to dental care?: No Was dental information given to patient?: Patient has dentist HPI 6 Months f/u luh from 08/11/24 HPI Details Patient comes in today for her follow up visit Relates that she somehow hurt her left shoulder about 2.5 months while working out at her local gym, and that she presently still cannot adduct or lift her arm with weight or against resistance without experiencing increased pain in her shoulder Adds that she has a nodule on her left index finger that has been present for about 1 year now, and that it has been causing her some pain on her finger and she is unable to fully extend her index fingers bilaterally lately Her right index appears swollen over the distal IP joint at present She denies any headaches or dizziness Denies any increased shortness of breath but she continues to experience recurrent chest pains and discomfort as well as some problems swallowing at times - she had cardiac work ups done over the past few months that all came out normal and she thinks that her chest pains may be GI-related No nausea/vomiting, no abdominal pain No change in bowel habits noted - still has on and off diarrhea She has no follow-up labs done recently but would like to have her MMR titers checked as she is concerned about isaura measles and would like to know if she needs to have a booster shot for measles [facility] Medical History (Updated 02/12/25 @ 21:45 by Bryon Ding MD) Recurrent UTI Tinnitus Overactive bladder Obesity (BMI 30-39.9) GERD with esophagitis Personal history of COVID-19 PONV (postoperative nausea and vomiting) Impaired fasting glucose Pure hypercholesterolemia Benign essential hypertension GERD (gastroesophageal reflux disease) Dizziness Cataract Lumbar degenerative disc disease History of paroxysmal supraventricular tachycardia History of deep venous thrombosis (~2002) Migraine Mitral valve prolapse Surgical History History of esophagogastroduodenoscopy (EGD) History of colonoscopy (~06/28/15) History of surgery (~2002) History of surgery Family History Father Diabetes Hypertension Stroke Cardiovascular disease Mother Myocardial infarction Social History Housing: House Are you a primary career orientation teacher to a significant other at home: No Do you presently have visiting nurse or other home services: No Alcohol intake: current Alcohol intake frequency: a few times a week Patient Tobacco Use Status: Former Tobacco user e-Cigarette/Vaping Use: Never Used Second Hand Smoke Exposure: Yes service: No Current occupational status: retired Cognitive needs: No Hearing needs: No Vision needs: Yes Questionnaire PHQ-9 Over the last 2 weeks, how often have you been bothered by any of the following problems? 1. Little interest or pleasure in doing things: not at all 2. Feeling down, depressed, or hopeless: not at all 3. Trouble falling or staying asleep, or sleeping too much: not at all 4. Feeling tired or having little energy: not at all 5. Poor appetite or overeating: not at all 6. Feeling bad about yourself - or that you are a failure or have let yourself or your family down: not at all 7. Trouble concentrating on things, such as reading the newspaper or watching television: not at all 8. Moving or speaking so slowly that other people could have noticed. Or the opposite - being so fidgety or restless that you have been moving around a lot more than usual: not at all 9. Thoughts that you would be better off or of hurting yourself in some way: not at all Total score: 0 Depression Screening Interpretation: Negative Depression Screening Done: Yes 36412 - PHQ-9 Billing: Yes Source: Developed by Drs. Stephen Muñoz, Maren Peters, Kun Salas and colleagues, with an educational maria g from [employer]. Thrive Questionnaire Date Thrive assessed: 12/19/24 I am a: Patient What is your living situation today?: I choose not to answer this question Within the past 12 months, did the food you bought not last and you didn't have the money to get more?: I choose not to answer this question Within the past 12 months, did you worry whether your food would run out before you got money to buy more?: I choose not to answer this question Do you have trouble paying for medicines?: I choose not to answer this question Do you have trouble getting transportation to medical appointments?: I choose not to answer this question Do you have trouble paying your heating and electricity bill?: I choose not to answer this question Do you have trouble taking care of your child, family member or friend?: I choose not to answer this question Do you have trouble with day-to-day activities such as bathing, preparing meals, shopping, managing finances, etc.?: I choose not to answer this question Are you currently unemployed and looking for a job?: I choose not to answer this question Are you interested in more education?: I choose not to answer this question Please select the resources that you would like help with: None Currently or been in a relationship where the following occur: I choose not to answer THRIVE Score: 0 AUDIT C Alcohol Use Questionnaire (AUDIT-C) 1. How often do you have a drink containing alcohol?: 2-4 times a month 2. How many drinks containing alcohol do you have on a typical day when you are drinking?: 1 or 2 3. How often do you have six or more drinks on one occasion?: Never Total Score: 2 Score Reviewed/Action Taken: Yes MILO-7 AMB Questionnaire MILO-7 Date MILO - 7 assessed: 12/19/24 Feeling nervous, anxious, or on edge: 0 = Not at all Not being able to stop or control worryin = Not at all Worrying too much about different things: 0 = Not at all Trouble relaxin = Not at all Being so restless that it is hard to sit still: 0 = Not at all Becoming easily annoyed or irritable: 0 = Not at all Feeling afraid as if something awful might happen: 0 = Not at all Total MILO-7 score (0-4 normal; 5-9 mild; 10-14 moderate; 15-21 severe): 0 Source: Developed by Drs. Stephen Muñoz, Maren Peters, Kun Salas and colleagues, with an educational maria g from [employer]. Review of Systems Const Denies chills, Denies fatigue, Denies fever(s) and Denies headache(s) ENT Reports dysphagia, Denies dizziness, Denies otalgia, Denies headache(s), Denies neck pain, Denies odynophagia and Denies sore throat Card Reports chest pain (on and off), Denies rapid heart rate, Denies palpitations and Denies dyspnea Resp Denies chest congestion, Denies cough and Denies dyspnea GI Denies abdominal pain, Denies constipation, Reports dysphagia, Denies heartburn, Reports diarrhea (recurrent), Denies nausea, Denies odynophagia and Denies vomiting Denies difficulty voiding, Denies nocturia, Denies dysuria and Denies urinary urgency Musc Reports as per HPI, Denies back pain, Reports arthralgias (in both hands/fingers, recurrent; left shoulder over past 2 months), Reports joint swelling (over the distal IP joint of both index fingers - see HPI) and Denies neck pain Skin/Breast Denies rash Neuro Denies dizziness and Denies headache(s) Psych Denies anxiety and Denies depression Endo Denies fatigue and Denies palpitations Physical exam (Primary Care) Vital Signs: Last Vital Signs Pulse 88 12/19/24 13:06 BP 118/76 12/19/24 13:06 Pulse Ox 96 12/19/24 13:06 Oxygen Delivery Method Room Air 12/19/24 13:06 Tobacco/Smoking Status: Tobacco use Status Tobacco use date assessed 12/19/24 12/19/24 13:13 Patient Tobacco Use Status Former Tobacco user 12/19/24 13:13 e-Cigarette/Vaping Use Never Used 12/19/24 13:13 PHQ-9: PHQ-9 Score PHQ-9: Total score 0 12/19/24 13:30 Depression Screening Interpretation: Negative Thrive Assessment: Date of Thrive Assessment Date Thrive assessed 12/19/24 12/19/24 13:13 Currently or been in a relationship where the following occur: I choose not to answer Const General: no acute distress and alert HENMT Ears: TM's normal bilaterally and EAC's normal Throat: Yes posterior oropharynx normal and Yes tonsils normal (no TP congestion) Neck Neck: Yes no lymphadenopathy and Yes supple Thyroid: Thyroid normal Resp Auscultation: clear to auscultation bilaterally, no rales and no wheezes Cardio Rate: regular rate Rhythm: regular rhythm Heart sounds: no murmurs GI Palpation (GI): Soft to palpation and nontender Auscultation: normal bowel sounds General: Yes no CVA tenderness Back/Spine/Pelvis Back: no CVA tenderness Cervical Spine: Cervical spine tenderness (minimal) Thoracic/Lumbar Spine: No lumbar spinal tenderness Skin Rashes: no rashes Extrem Other: (+) painful nodule on the left index finger General: Yes no clubbing, cyanosis or edema Right upper extremity: Extremity exam: right hand Details: swelling Location: of the 2nd digit Location: at the DIP joint Left upper extremity: shoulder/upper arm Details: tenderness Location: of the A- C joint and hand Details: swelling Location: of the 2nd digit Coding Level of Care Code Est Pt Level 4 (56063) Diagnoses Benign essential hypertension I10 Pure hypercholesterolemia E78.00 Intractable migraine without aura and with status migrainosus G43.011 Migraine type: without aura Status migrainosus presence: with status migrainosus Intractability: intractable Paroxysmal SVT (supraventricular tachycardia) I47.1 Degenerative disc disease, cervical M50.30 Left shoulder pain, unspecified chronicity M25.512 Chronicity: unspecified Swelling of finger joint of left hand M25.442 Nodule of finger of left hand R22.32 Gastroesophageal reflux disease with esophagitis without hemorrhage K21.00 Esophagitis bleeding: without hemorrhage Paresthesia R20.2 Overactive bladder N32.81 Obesity (BMI 30-39.9) E66.9 Additional Codes PHQ-9 - 11329 - PHQ-9 Billing: Yes ([id number]) Assessment & Plan Assessment & Plan (1) Benign essential hypertension: Code(s): I10 - Essential (primary) hypertension Category: Medical Plan: Reinforced low sodium diet - goal is systolic BP of at least 130 mm or less Continue HCTZ 12.5 mg QD Have tried switching her over to Valsartan 80 mg QD in the past but she could not tolerate Rx Patient is again reminded to continue monitoring her blood pressure regularly (2) Pure hypercholesterolemia: Code(s): E78.00 - Pure hypercholesterolemia, unspecified Category: Medical Plan: She has not had her cholesterol levels checked since October 2023 - have reminded her that her cholesterol levels were adequately controlled back then, with her LDL cholesterol at 83 mg/dl although her serum triglyceride level was still up at 265 mg/dl at the time Reinforced low cholesterol diet Continue Atorvastatin 10 mg QD - she continues to experience myalgia on the Rx but states that the symptoms are still tolerable We tried switching her over to Repatha in the past but her insurance will not cover the Rx Will recheck her fasting lipids and labs in 6 months for follow up (3) Migraine: Code(s): G43.909 - Migraine, unspecified, not intractable, without status migrainosus Category: Medical Qualifiers: Migraine type: without aura Status migrainosus presence: with status migrainosus Intractability: intractable Qualified Code(s): G43.011 - Migraine without aura, intractable, with status migrainosus Plan: Patient states that her migraine headaches have been better controlled since she was started on Emgality injections monthly by neurology; she had some local skin reactions to the injection initially but these have since resolved Continue Emgality injections monthly and Sumatriptan 100 mg PRN as instructed Reinforced avoidance of migraine triggers Follow up with neurology as scheduled (4) Paroxysmal SVT (supraventricular tachycardia): Code(s): I47.1 - Supraventricular tachycardia Category: Medical Plan: Patient still has occasional brief sensations of tachycardia and heart racing but these are never associated with any SOB, dizziness/lightheadedness or chest pains Echocardiogram and stress echo done back in June 2022 both came out normal She is again advised to call if these symptoms get worse or occur more frequently - will need further work ups then, including Holter and/or TREVON (5) Degenerative disc disease, cervical: Code(s): M50.30 - Other cervical disc degeneration, unspecified cervical region Category: Medical Plan: Cervical spine x-rays done in May 2021 revealed (+) mild cervical spine degenerative disc disease Patient states that her neck pain has improved slightly with physical therapy in the past and she continues to do the neck exercises she was previously taught on a regular basis (6) Left shoulder pain: Code(s): M25.512 - Pain in left shoulder Category: Medical Qualifiers: Chronicity: unspecified Qualified Code(s): M25.512 - Pain in left shoulder Plan: Will send her for x-rays of the left shoulder for further evaluation Will refer her to orthopedics for further evaluation and management of her increased left shoulder pain (7) Swelling of finger joint of left hand: Code(s): M25.442 - Effusion, left hand Category: Medical Plan: Will send her for x-rays of both hands for further evaluation Will also refer her to orthopedics for further evaluation and management (8) Nodule of finger of left hand: Code(s): R22.32 - Localized swelling, mass and lump, left upper limb Category: Medical Plan: Will also refer her to orthopedics for this issue (9) GERD with esophagitis: Code(s): K21.00 - Gastro-esophageal reflux disease with esophagitis, without bleeding Category: Medical Qualifiers: Esophagitis bleeding: without hemorrhage Qualified Code(s): K21.00 - Gastro-esophageal reflux disease with esophagitis, without bleeding Plan: EGD done in September 2022 revealed findings consistent with active esophagitis She also 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, with resolution of her previous dysphagia although she reports that she is again starting to experience some dysphagia symptoms lately Reinforced dietary restrictions Patient was on Pantoprazole 40 mg QD x 4 weeks, after which she tapered off her Rx per previous instructions from GI She is currently only taking Famotidine 20 mg BID PRN Will refer her back to GI for further evaluation and management of her dysphagia - she may need EGD with dilatation again sometime soon (10) Paresthesia: Code(s): R20.2 - Paresthesia of skin Category: Medical Plan: Have advised patient again that her symptoms are more accurately called P ALLESTHESIA rather than paresthesia Her brain MRI done back in June 2023 revealed (+) changes indicating a mild burden of nonspecific scattered supratentorial white matter as well as right ventral pontine T2/FLAIR hyperintensities, most likely reflecting sequelae of chronic microvascular ischemia. No lesion morphology or distribution specific to demyelinating diseases are noted She has been reassured that her tests did not show evidence of any acute neurodegenerative conditions although MS still cannot be entirely ruled out; it is also still possible that her symptoms are due to some form of evolving neuropathy Patient still feels that her symptoms have all been triggered by the Pfizer COVID booster vaccine that she received last March 2023; if this is the case, her symptoms may gradually subside and clear up over time We can consider referring her to neurology for further evaluation and management if her symptoms continue to bother her; may also consider sending her for EMG and NCV for further evaluation (11) Overactive bladder: Code(s): N32.81 - Overactive bladder Category: Medical Plan: She has been on Rx in the past (Myrbetriq, Trospium) with little relief of her urinary symptoms She started getting botox injections a few months ago and states that this has helped a lot - she currently no longer has to take any Rx for her OAB but was advised that she may need to get botox injections every 6 months up to a year Follow up with urology as scheduled (12) Obesity (BMI 30-39.9): Code(s): E66.9 - Obesity, unspecified Category: Medical Plan: Reinforced diet/exercise as tolerated/lose weight Plan Per request, will send her to check her MMR titers KATHIE To return in 6 months for her annual physical examination Have also reminded patient to make sure she gets her follow up labs done JUST BEFORE her next appointment in the spring for her annual physical examination Orders: Orders XR Hand Bilat min 3v 12/26/24 M79.641 - Pain in right hand, M79.642 - Pain in left hand MMR IgG Measles Mumps Rubella 12/26/24 Z78.9 - Other specified health status Complete Blood Count Auto Diff 6 Months D64.9 - Anemia, unspecified, Z00.00 - Encounter for general adult medical examination without abnormal findings TSH reflex Free T4 6 Months E78.00 - Pure hypercholesterolemia, unspecified, Z00.00 - Encounter for general adult medical examination without abnormal findings Vitamin D 25-OH Total 6 Months E55.9 - Vitamin D deficiency, unspecified, Z00.00 - Encounter for general adult medical examination without abnormal findings XR shoulder LT min 2V 12/26/24 M25.512 - Pain in left shoulder Comprehensive [place]. Panel Fast 6 Months E78.00 - Pure hypercholesterolemia, unspecified, Z00.00 - Encounter for general adult medical examination without abnormal findings Lipid Panel 6 Months E78.00 - Pure hypercholesterolemia, unspecified, Z00.00 - Encounter for general adult medical examination without abnormal findings UA CC w/rflx Micro + Cult 6 Months R30.0 - Dysuria, Z00.00 - Encounter for general adult medical examination without abnormal findings Referrals Orthopedics Referral R22.33 - Localized swelling, mass and lump, upper limb, bilateral Gastroenterology Referral R13.10 - Dysphagia, unspecified
--- OUTSIDE RECORDS SUMMARY | 2024-12-19 15:17 | XMS_ITS | Encounter Summary ---
Author Organization [facility] [place] [address] Care Team Providers Care Global Account Director Name Role Phone Bryon Ding MD Primary Care Provider + [phone] Encounter Details Date Type Department Care Team (Late st Contact Info) Description 09/02/2024 Lab Requisition [facility] - Main Lab [address] [facility] [place] [id number] Jolene Bolivar, JAYJAY [address] [facility] [address] [place] [address] Urgency of urination Social History Tobacco Use Types Packs/Day Years [...] Procedure Name Priority Date/Time Associated Diagnosis Comments CULTURE URINE Routine 09/02/2024 12:00 AM EDT Urgency of urination documented in this encounter Results * Culture urine (09/02/2024 12:00 AM EDT) Culture, Urine No growth 09/03/2024 7:23 AM EDT [facility] Urine Urine specimen from urethra / Unknown 09/02/2024 09/02/2024 1:27 PM EDT us Jolene Bolivar INCOME TAX EXPERT LAB MICROBIOLOGY - GENERA L ORDERABLES Final Result [facility] [address] [place] [address], documented in this encounter Visit Diagnoses Diagnosis Urgency of urination documented in this encounter Care Teams Global Account Director Relationship Specialty Start Date End Date Bryon Ding MD [address] [place] [address] Dr [address] [place], [place] PCP - General 11/27/09 documented as of this encounter
--- OUTSIDE RECORDS SUMMARY | 2024-12-19 15:17 | XMS_ITS | Patient Health Record ---
Author Organization [facility] Address [address] [place] [address] Care Team Providers Care Rheumatologist Name Role Phone Bryon Ding MD Primary Care Provider Stephen Fonseca [phone] Allergies Allergen (clinical drug ingredient) Drug/Non Drug [...] Problem Status W/U Status Risk Notes Problem [id number] Encounter for screening for malignant neoplasm of colon (Z12.11) Active confirmed Problem 800645584 Irritable bowel syndrome with diarrhea (K58.0) Active confirmed Problem Screening for malignant neoplasm of rectum (042714742) Encounter for screening for malignant neoplasm of rectum (Z12.12) Active confirmed Problem [id number] Gastroesophageal reflux disease without esophagitis (K21.9) Active confirmed Problem 47771798 Esophageal spasm (K22.4) Active confirmed Plan Of Treatment Future Test Test Name Order Date UPPER GI ENDOSCOPY 04/25/2015 COLONOSCOPY 04/25/2015 Insurance Providers Payer Name Payer Address Payer Phone Subscriber Number Group Number Insured Name Patient Relationship to Insured Coverage Start Date Coverage End Date [facility] [address] [facility] [place] [phone] [id number] ELIA NG Self - patient is the insured Medical (General) History Medical History History ICD Code Denies VA,DM,CVA,Lung disease,renal dise ase Overactive bladder GERD--small HH on a Barium swallow UTI's IBS-irregular BM's--describes a negative Flex sig with me in the 1989' negative gallbladder ultrasounds and nor mal HIDA scan with CCK in 2009 Surgical History Surgery Date(Month/Year) Foot surgery x2 2002 Bladder suspension 1999
--- OUTSIDE RECORDS SUMMARY | 2024-12-19 15:17 | XMS_ITS | Clinical Summary ---
Author Organization [address] Address [address] [place] [address] Phone Care Team Providers Care Agribusiness Internship Name Role Phone Bryon Ding MD Primary Care Provider [phone] Allergies Active Allergy Reactions Criticality Noted Date Comments Hydrocodone Hives,Dizziness Low 08/15/2024 Oxycodone Itching Low 08/15/2024 Medications methenamine hippurate (HIPREX) 1 gram tablet Take 1 tablet (1 g total) by mouth 2 (two) times a day. Active hydroCHLOROthia zide 12.5 mg tablet Take 1 tablet (12.5 mg total) by mouth 1 (one) time each day. 05/08/2024 Active atorvastatin (LIPITOR) 10 mg tablet Take 1 tablet (10 mg total) by mouth 1 (one) time each day. at bedtime. 05/02/2024 Active galcanezumab-gn lm (Emgality Pen) 120 mg/mL injection pen Inject 1 mL (120 mg total) under the skin every 28 (twenty-eigh t) days. 07/20/2020 Active oxyCODONE (OXY-IR) 5 mg immediate release capsule Take 1 capsule (5 mg total) by mouth every 6 (six) hours if needed for severe pain for up to 5 doses. Max Daily Amount: 20 mg 5 capsule 08/15/2024 Active Active Problems Problem Noted Date Diagnosed Date Gastroesophageal reflux disease without esophagi tis 08/15/2024 DVT (deep venous thrombosis) ([facility] V24, [facility] V28) 08/15/2024 HTN (hypertension) 08/15/2024 PONV (postoperative nausea and vomiting) 025 Surgical History Surgery Date Site/Laterality Comments VAGINAL DELIVERY PROCEDURE: VT VAGINAL DELIVERY ONLY; COMMENT: times 3 TUBAL LIGATION 1992 PROCEDURE: HISTORICAL TUBAL LIGATION BREAST BIOPSY Left PROCEDURE: BX BREAST; PERC NEEDLE CORE W/IMAG GUID; COMMENT: needle asp ACHILLES TENDON SURGERY MENISCECTOMY Right COLMENARES PROCEDURE CATARACT EXTRACTION Medical History Medical History Date Comments Irritable bowel syndrome DX:Irri table bowel syndrome Incomplete bladder emptying DX:I ncomplete bladder emptying; COMMENT: overactive bladder Heart disease, unspecified DX:He art disease, unspecified; COMMENT: mitral valve prolapse Other and unspecified noninf ectious gastroenteritis and colitis(558.9) DX:Other and unspec ified noninfectious gastroenteritis and colitis(558.9) GERD (gastroesophageal reflux disease) DX:GERD (gastroesophageal reflux disease) PONV (postoperative nausea a nd vomiting) DVT of proximal lower limb ( [facility] V24, [facility] V28) 1994 HTN (hypertension) 08/15/2024 Family History Medical History Relation Name Comments Diabetes Father Hypertension Father Stroke Father Asthma Mother Heart failure Mother Breast cancer Other 1 mat grt aunt Breast cancer Other 2 cousin Relation Name Status Comments Brother Alive Daughter Alive Father (Age 80) Stroke Maternal Grandfather Maternal Grandmother Mother Other 1 mat grt aunt Other 2 cousin Alive Paternal Grandfather Paternal Grandmother Son 1 Alive Son 2 Alive Social History Tobacco Use Types Packs/Day Years [...] on file Sexual Orientation Not on file Obstetrics History Para Term AB IAB SAB Ectopic Multiple Livin g Live Births 3 3 3 3 Date Outcome GA Total Labor Labor/2nd/3rd Weight Sex Type Anes PTL Kathleen A1 A5 Name Clin Term Term Term Last Filed Vital Signs Vital Sign Reading Time Taken Comments Blood Pressure 147/87 08/15/2024 5:31 PM EDT Pulse 81 08/15/2024 5:31 PM EDT Temperature 36.1 C (97 F) 08/15/2024 5:31 PM EDT Respiratory Rate 20 08/15/2024 5:31 PM EDT Oxygen Saturation 99% 08/15/2024 5:31 PM EDT Inhaled Oxygen Concentration - - Weight 81.6 kg (180 lb) 08/10/2024 10:00 AM EDT Height 163.8 cm (5' 4.5 ) 09/10/2023 11:26 AM ED T Body Mass Index 30.42 09/10/2023 11:26 AM EDT Plan of Treatment Health Maintenance Due Date Last Done Comments Cervical Cancer Screening: HPV 1977 Cholesterol Screening (Lipid Panel) 03/22/2022 Colorectal Cancer Screening: Colonoscopy 03/22/2022 Falls Risk Assessment 03/22/2022 Hepatitis C Screening 03/22/2022 Medicare Annual Wellness Visit 03/22/2022 Social Influencers of Health Screening 03/22/2022 Depression Screening 04/13/2024 Hypertension/CHF/CAD Annual BMP Blood Test 08/15/2024 COVID-19 Vaccine ( season) 2024 03/15/2023, 01/20/2022, 02/19/2021, Additional history exists Influenza Vaccine (#1) 2024 , 04/25/2022, 01/25/2021, Additional history exists Breast Cancer Screening 06/01/2026 06/01/19 25, 05/11/2024, 05/02/2023, Additional history exists RSV Immunization Adult Patients (1 - 1-dose 75+ series) 09/15/2031 Osteoporosis Screening (Bone Density Screening) 04/30/2033 04/30/2023 DTaP,Tdap,and Td Vaccines (4 - Td or Tdap) 09/16/2033 09/17/2023, 07/30/2016, 07/17/2014 Zoster Vaccines Completed 12/26/2020, 10/27/2020 Pneumococcal Vaccine: 50+ Years Completed 07/25/2022 HIB Vaccines Aged Out No longer eligi ble based on patient's age to complete this topic HPV Vaccines Aged Out No longer eligi ble based on patient's age to complete this topic Hepatitis A Vaccines Aged Out No long er eligible based on patient's age to complete this topic Hepatitis B Vaccines Aged Out No long er eligible based on patient's age to complete this topic IPV Vaccines Aged Out No longer eligi ble based on patient's age to complete this topic MMR Vaccines Aged Out No longer eligi ble based on patient's age to complete this topic Meningococcal ACWY Vaccine Aged Out N o longer eligible based on patient's age to complete this topic Meningococcal B Vaccine Aged Out No l onger eligible based on patient's age to complete this topic RSV Immunization Patients Under 20 months Aged Out No longer eligible based on patient's age to complete this topic Varicella Vaccines Aged Out No longer eligible based on patient's age to complete this topic Medical Devices Implanted Type Area Supervisor Customer Complaint Service Device Identifier Shelf Expiration Date Model / Serial / Lot Sling Mid-Urethral Lynx Sys Urinary Incontinence - Sn/A - [id number] Implanted:Qty: 1 on 08/15/2024 by Carolyn Phillips MD at [facility] Surgical Mesh Sling Implants N/A: Pelvis [employer] [id number] 11/12/2026 [id number] / N/A / [id number] Procedures Procedure Name Priority Date/Time Associated Diagnosis Comments MG MAMMO DIAGNOSTIC ADDL VIEWS RIGHT Routine 06/01/2024 10:03 AM EST Abnormal mammogram DXA BONE DENSITY STUDY 1+ SITS AXIAL SKEL Routine 04/30/2023 10:16 AM EST Encounter for gynecological examination (general) (routine) without abnormal findings from Last 3 Months or Most Recently Relevant to Health Maintenance Results * MG Mammo Diagnostic Addl Views Right (06/01/2024 10:03 AM EST) Anatomical Region Laterality Modality Breast Right Mammography 06/01/2024 10:1 1 AM EST Impressions 06/01/2024 10:29 AM EST 1. No mammographic or sonographic evidence of malignancy 2. Heterogeneously dense Findings and recommendations were conveyed to the patient. BI-RADS CATEGORY: 2 - BENIGN RECOMMENDATION: Return to annual mammography. Return to annual mammography. Mammo Location: [facility], [address] [place] [address], [id number], . -------- FINAL REPORT -------- Dictated By: Yris Kwan Dictated Date: 06/01/2024 10:11 ET Assigned Physician: Yris Kwan Reviewed and Electronically Signed By: Yris Kwan Signed Date: 06/01/2024 10:29 ET Workstation ID: [id number] Transcribed By: Self Edit Transcribed Date: 06/01/2024 10:21 ET Narrative 06/01/2024 10:29 AM EST RIGHTDIGITAL DIAGNOSTIC 3D MAMMOGRAPHY HISTORY: Workup for upper outer focal asymmetry COMPARISON: Mammogram from 05/11/2024 Technique: Right breast CC, MLO spot compression 3-D, full-field ML 3-D FINDINGS: Right breast upper outer focal asymmetry becomes equal in density on spot compression and is consistent with benign summation of fibroglandular tissue. Sonographic evaluation demonstrates no focal abnormality BREAST DENSITY: C - The breasts are heterogeneously dense which may obscure small masses. EXAM: Right BREAST TARGETED ULTRASOUND EVALUATION TECHNIQUE: Ultrasonographic examination is performed using a linear array transducer. Targeted right breast ultrasound from 9:00 to 12:00 to evaluate mammographic finding. Real-time sonographic scanning was also performed by the radiologist FINDINGS: From 9:00 to 12:00, no sonographic evidence of malignancy or other focal abnormalities were identified at the right breast in area of mammographic concern Procedure Note Yris Kwan MD - 06/01/2024 RIGHTDIGITAL DIAGNOSTIC 3D MAMMOGRAPHY HISTORY: Workup for upper outer focal asymmetry COMPARISON: Mammogram from 05/11/2024 Technique: Right breast CC, MLO spot compression 3-D, full-field ML 3-D FINDINGS: Right breast upper outer focal asymmetry becomes equal in density on spotcompression and is consistent with benign summation of fibroglandulartissue. Sonographic evaluation demonstrates no focal abnormality BREAST DENSITY: C - The breasts are heterogeneously dense which mayobscure small masses. EXAM: Right BREAST TARGETED ULTRASOUND EVALUATION TECHNIQUE: Ultrasonographic examination is performed using a linear arraytransducer. Targeted right breast ultrasound from 9:00 to 12:00 toevaluate mammographic finding. Real-time sonographic scanning was alsoperformed by the radiologist FINDINGS: From 9:00 to 12:00, no sonographic evidence of malignancy or other focalabnormalities were identified at the right breast in area of mammographicconcern IMPRESSION: 1. No mammographic or sonographic evidence of malignancy 2. Heterogeneously dense Findings and recommendations were conveyed to the patient. BI-RADS CATEGORY: 2 - BENIGN RECOMMENDATION: Return to annual mammography. Return to annual mammography. Mammo Location: [facility], [address] [place] [address], [address], . -------- FINAL REPORT -------- Dictated By: Yris Kwan Dictated Date: 06/01/2024 10:11 ET Assigned Physician: Yris Kwan Reviewed and Electronically Signed By: Yris Kwan Signed Date: 06/01/2024 10:29 ET Workstation ID: [id number] Transcribed By: Self Edit Transcribed Date: 06/01/2024 10:21 ET us Bryon Ding MD IMG BI PROCEDURES Final Resu lt * DXA BONE DENSITY STUDY 1+ SITS AXIAL SKEL (04/30/2023 10:16 AM EST) Anatomical Region Laterality Modality Bone Densitometr y 06/12/2022 11:3 5 AM EST Narrative 04/30/2023 5:18 PM EST STUDY: DUAL ENERGY X-RAY ABSORPTIOMETRY / DXA REASON FOR EXAM: Female, 67 years old menopausal/postmenopausal disorder TECHNIQUE: Bone Mineral Density (BMD) measurements of the lumbar spine and left hip were obtained using [employer] Discovery W (S/N [id number]). COMPARISON: None FINDINGS: L1-L4 BMD: 1.027 g/cm2 L1-L4 T score: -0.2. This corresponds to Normal bone density. Left femoral neck BMD: 0.720 g/cm2 Left femoral neck T score: -1.2. This corresponds to osteopenia. Left total hip BMD: 0.957 g/cm2 Left total hip T score: 0.1. This corresponds to Normal bone density. FRAX score: 10 year risk of major osteoporotic fracture 8.3%, 10 year risk of hip fracture 0.7% IMPRESSION: IMPRESSION: Osteopenia Reference Information: The T-score is the number of standard deviations above or below the standard which is normal for young adults at their peak bone mineral density. The World Health Organization (WHO) interprets the T-scores as follows: At or above -1 SD Normal bone density Between -1 and -2.5 SD Osteopenia At or below -2.5 SD Osteoporosis Procedure Note Harish Ruiz MD - 11/30/2023 STUDY: DUAL ENERGY X-RAY ABSORPTIOMETRY / DXA REASON FOR EXAM: Female, 67 years old menopausal/postmenopausaldisorder TECHNIQUE: Bone Mineral Density (BMD) measurements of the lumbar spineand left hip were obtained using [employer] Discovery W (S/N [id number]). COMPARISON: None FINDINGS: L1-L4 BMD: 1.027 g/cm2 L1-L4 T score: -0.2. This corresponds to Normal bone density. Left femoral neck BMD: 0.720 g/cm2 Left femoral neck T score: -1.2. This corresponds to osteopenia. Left total hip BMD: 0.957 g/cm2 Left total hip T score: 0.1. This corresponds to Normal bone density. FRAX score: 10 year risk of major osteoporotic fracture 8.3%, 10 year riskof hip fracture 0.7% IMPRESSION: IMPRESSION: Osteopenia Reference Information: The T-score is the number of standard deviations above or below thestandard which is normal for young adults at their peak bone mineral density. The World HealthOrganization (WHO) interprets the T-scores as follows: At or above -1 SD Normal bone density Between -1 and -2.5 SD Osteopenia At or below -2.5 SD Osteoporosis Waleska Pedraza DO IMG DXA PROCEDURES Final Resu lt from Last 3 Months or Most Recently Relevant to Health Maintenance Insurance [facility] [facility] Care Teams Agribusiness Internship Relationship Specialty Start Date End Date Bryon Ding MD [address] [place] [address] Dr [address] [place], [place] PCP - General 11/27/09
--- OUTSIDE RECORDS SUMMARY | 2024-12-19 15:17 | XMS_ITS | Patient Health Record ---
Author [facility] Address [address] [place] [address] Care Team Providers Care Office Cleaner Name Role Phone Christina Ding MDh Primary Care Provider Unava ilable Black, Taylor Unavailable [phone] Allergies Allergen (clinical drug ingredient) Drug/Non Drug [...] Problem Acquired hammer toe of right foot (560381130681 9105) Other hammer toe(s) (acquired), right foot (M20.41) Active confirmed Problem Acquired hammer toe of left foot (561678969672 9103) Other hammer toe(s) (acquired), left foot (M20.42) Active confirmed Problem Plantar nerve lesion (884480312) Lesion of plantar nerve, 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) Active confirmed Problem Plantar nerve lesion (969038847) Lesion of plantar nerve, left lower limb (G57.62) Active confirmed Problem PlantarFlexion o f metatarsal of right foot (M21.6X1) Active confirmed Problem PlantarFlexion o f metatarsal of left foot (M21.6X2) Active confirmed Plan Of Treatment No Information Insurance Providers Payer Name Payer Address Payer Phone Subscriber Number Group Number Insured Name Patient Relationship to Insured Coverage Start Date Coverage End Date [facility] [address] [place] [address] [id number] Leila Finney Self - patient is the insured Medical (General) History Medical History History ICD Code Back,Hip,and Knee pain Cataracts Headaches/Migraines Measles Mumps Chicken pox Joint implants/screws Reflux Sciatica Surgical History Surgery Date(Month/Year) back surgery achilles tendon surgery colonoscopy wisdom teeth extraction
--- OUTSIDE RECORDS SUMMARY | 2024-12-19 15:17 | XMS_ITS | Encounter Summary ---
[facility] [place] [address] Care Team Providers Care Hospital Scientist Name Role Phone Bryon Ding MD Primary Care Provider + [phone] Encounter Details Date Type Department Care Team (Late st Contact Info) Description 08/30/2024 Lab Requisition [facility] - Main Lab [address] [facility] [place] [phone] Carolyn Phillips MD [address] [facility] [employer] [address] [place] [address] Pyuria Social History Tobacco Use Types Packs/Day [...] if clinically indicated. 08/31/2024 8:59 AM EDT [facility] Other Urine specimen from urethra / Unknown 08/29/2024 08/30/2024 10:04 AM EDT us Carolyn Phillips MD LAB MICROBIOLOGY - G ENERAL ORDERABLES Final Result [facility] [address] [place] [address], documented in this encounter Visit Diagnoses Diagnosis Pyuria Other nonspecific finding on examination of urine documented in this encounter Care Teams Hospital Scientist Relationship Specialty Start Date End Date Bryon Ding MD [address] [place] [address] Dr [address] [place], [place] PCP - General 11/27/09 documented as of this encounter
--- OUTSIDE RECORDS SUMMARY | 2024-12-19 15:17 | XMS_ITS | Clinical Summary ---
Author Organization [facility] Address [address] [address] Phone Care Team Providers Care Video Editing Internship Name Role Phone Bryon Ding MD Primary Care Provider [phone] Allergies Active Allergy Reactions Criticality Noted Date [...] 2006 OSTEOPOROSIS SCREENING INITI AL (ONE-TIME) 2021 INFLUENZA VACCINE (#1) 2024 01/11/2020 COVID-19 VACCINE (3 - 2024-2 6 season) 2024 06/15/2020, 05/18/2020 Adult Td,Tdap Booster 07/30/2026 07/30/2016 [...] topic Medical Devices Not on file Insurance H[place] [address] [place], [place] [address] [place] [address] [place], [place] [address] [place], [place] [address] Subscriber Plan / Payer (Ef fective 2020-Present) Name:Leila Finney Relation to Subscriber:Self Name:Leila Finney Payer ID:Not on file Type:HMO Address: [place] [id number] Care Teams Video Editing Internship Relationship Specialty Start Date End Date Bryon Ding MD [address] [place] [address] [place] [address] PCP - General Internal Medicine 08/08/20 Additional Source Comments The information contained in this document represents components of the legal health record. It is not the complete legal health record.[facility]
--- OUTSIDE RECORDS SUMMARY | 2024-12-19 15:17 | XMS_ITS | Encounter Summary ---
Author Organization [facility] [address] Care Team Providers Care Faucets Assembler Name Role Phone Bryon Ding MD Primary Care Provider + [phone] Encounter Details Date Type Department Care Team (Late st Contact Info) Description 05/26/2024 Lab Requisition [facility] - Main Lab [address] [facility] [place] [phone] Jolene Bolivar NP [address] [facility] [address] [place], [place] [id number] Frequency of micturition Social History Tobacco Use Types Packs/Day Years Used Date Smoking Tobacco: Former Smokeless Tobacco: Never Alcohol Use Standard Drinks/Week Comments Yes 0 (1 standard drink = 0.6 oz pur e alcohol) Comments Unknown Sex and Gender Information Value Date Recorded Sex Assigned at Not on file Legal Sex Female 3:35 AM EST Gender Identity Not on file Sexual Orientation Not on file documented as of this encounter Plan of Treatment Not on file documented as of this encounter Procedures Procedure Name Priority Date/Time Associated Diagnosis Comments BACTERIAL IDENTIFICATION AND SUSCEPTIBILITY, AEROBIC Routine 05/25/2024 12:00 AM EST Frequency of micturition documented in this encounter Results * (ABNORMAL) Bacterial identification and susceptibility, aerobic (05/25/2024 12:00 AM EST) Culture, Bacterial ID and Sensitivity Proteus mirabilis(A ) ALAYNA 05/27/2024 10:54 AM EST [facility] Comment: Edited result: Previously reported as Proteus species on 05/26/2024 at 1104 EST. Other Urine specimen from urethra / Unknown 05/25/2024 05/26/2024 9:57 AM EST Narrative [facility] - 05/27/2024 10:54 AM EST Mixed normal skin carmen present Organism Antibiotic Method Susceptibility Proteus mirabilis Amoxicillin/Clavulanate ALAYNA <=2 ug/ml: Susceptible Proteus mirabilis Ampicillin/Sulbactam ALAYNA <=2 ug/ml: Susceptible Proteus mirabilis Piperacillin/Tazobactam ALAYNA <=4 ug/ml: Susceptible Proteus mirabilis Cefazolin (Urine) ALAYNA 4 ug/ml: Susceptible Proteus mirabilis Cefoxitin ALAYNA <=4 ug/ml: Susceptible Proteus mirabilis Ceftazidime ALAYNA <=0.5 ug/ml: Susceptible Proteus mirabilis Ceftriaxone ALAYNA <=0.25 ug/ml: Susceptible Proteus mirabilis Cefepime ALAYNA <=0.12 ug/ml: Susceptible Proteus mirabilis Meropenem ALAYNA <=0.25 ug/ml: Susceptible Proteus mirabilis Amikacin ALAYNA 4 ug/ml: Susceptible Proteus mirabilis Gentamicin ALAYNA <=1 ug/ml: Susceptible Proteus mirabilis Ciprofloxacin ALAYNA <=0.06 ug/ml: Susceptible Proteus mirabilis Levofloxacin ALAYNA <=0.12 ug/ml: Susceptible Proteus mirabilis Nitrofurantoin ALAYNA 128 ug/ml: Resistant Proteus mirabilis Trimethoprim/Sulfamethoxazole ALAYNA >=320 ug/ml: Resistant us Jolene Bolivar MANAGER ARCHITECTURE LAB MICROBIOLOGY - GENERA L ORDERABLES Final Result [facility] [address] [place] [address], documented in this encounter Visit Diagnoses Diagnosis Frequency of micturition Urinary frequency documented in this encounter Care Teams Faucets Assembler Relationship Specialty Start Date End Date Bryon Ding MD [address] [place] [address] Dr [address] [place] PCP - General 11/27/09 documented as of this encounter
== END 2024-12-19 13:50 | disposition home or self-care (01) ==
LOC: HO.HMCH 13:06
PROVIDERS: PCP Internal Medicine; Visit Provider Internal Medicine
DX: I10 Essential (primary) hypertension (principal); E78.00 Pure hypercholesterolemia, unspecified; G43.011 Migraine without aura, intractable, with status migrainosus; I47.10 Supraventricular tachycardia, unspecified; M50.30 Other cervical disc degeneration, unspecified cervical region; M25.512 Pain in left shoulder; M25.442 Effusion, left hand; R22.32 Localized swelling, mass and lump, left upper limb; K21.00 Gastro-esophageal reflux disease with esophagitis, without bleeding; R20.2 Paresthesia of skin; N32.81 Overactive bladder; E66.9 Obesity, unspecified

== ENCOUNTER → 2024-12-19 13:05 | Outpatient (BNVA) | payer MEDICARE, SELFPAY | PROVIDERS: PCP Internal Medicine; Visit Provider Internal Medicine | DX: I10 Essential (primary) hypertension (principal); E78.00 Pure hypercholesterolemia, unspecified; G43.011 Migraine without aura, intractable, with status migrainosus; I47.10 Supraventricular tachycardia, unspecified; M50.30 Other cervical disc degeneration, unspecified cervical region; M25.512 Pain in left shoulder; M25.442 Effusion, left hand; R22.32 Localized swelling, mass and lump, left upper limb; K21.00 Gastro-esophageal reflux disease with esophagitis, without bleeding; R20.2 Paresthesia of skin; N32.81 Overactive bladder; E66.9 Obesity, unspecified; Z79.899 Other long term (current) drug therapy; Z13.31 Encounter for screening for depression; Z13.39 Encounter for screening examination for other mental health and behavioral disorders | CPT/HCPCS: 96127; 99212 ==

== ENCOUNTER 2024-12-26 12:38 | Outpatient (REF) | payer MEDICARE, SELFPAY ==
--- NOTE | ~2024-12-26 | XR_ITS ---
EXAMINATION: XR SHOULDER, LEFT CLINICAL INFORMATION: M25.512 - Pain in left shoulder COMPARISON: None available. TECHNIQUE: Three views of the left shoulder. FINDINGS: Moderate marginal osteophytes are evident around glenoid. Minute osteophytes are present involving humeral head. There is nonspecific soft tissue calcification cephalad to the glenoid. There is moderate degenerative change in the AC joint with sclerosis and osteophytes. There is no AC joint separation. XR/XR shoulder LT min 2V IMPRESSION: Moderate degenerative changes of the glenohumeral and AC joints. Electronically signed by: Georges Hamilton MD 12/26/2024 02:18 PM EDT
--- NOTE | ~2024-12-26 | XR_ITS ---
Exam: XR HAND 3 VIEWS BILATERAL, bilateral hand x-rays TECHNIQUE: AP, lateral, and oblique views upper extremity, bilateral hands INDICATION: M79.641 - Pain in right hand COMPARISON: None available. FINDINGS: RIGHT HAND: Marginal sites are present involving the DIP joints. There is mild to moderate DIP joint space narrowing. Minimal marginal ossified is are present involving the PIP joints. There is mild PIP joint space narrowing. There are no soft tissue calcifications. LEFT HAND: There are small and minute marginal ossified involving DIP and PIP joints of the hand. Joint space narrowing is mild. Nonspecific cystic changes are evident in the ulnar styloid. XR/XR Hand Bilat min 3v IMPRESSION: Right hand: Mild to moderate degenerative changes consistent with osteoarthritis involving DIP and PIP joints. Left hand: Mild degenerative changes consistent with osteoarthritis involving DIP and PIP joints. Electronically signed by: Georges Hamilton MD 12/26/2024 02:16 PM EDT
--- OUTSIDE RECORDS SUMMARY | 2024-12-26 17:21 | XMS_ITS | Encounter Summary ---
Author Organization [facility] [place] [address] Care Team Providers Care Teacher Selection Specialist Name Role Phone Bryon Ding MD Primary Care Provider + [phone] Encounter Details Date Type Department Care Team (Late st Contact Info) Description 05/26/2024 Lab Requisition [facility] - Main Lab 299 [facility] [place] [phone] Jolene Bolivar NP 3640 [facility] 103 [place], [place] [id number] Frequency of micturition Social History Tobacco Use [...] mirabilis(A ) ALAYNA 05/27/2024 10:54 AM EST [facility] Comment: Edited result: Previously reported as Proteus species on 05/26/2024 at 1104 EST. Other Urine specimen from urethra / Unknown 05/25/2024 05/26/2024 9:57 AM EST Narrative [facility] - 05/27/2024 10:54 AM EST Mixed [...] ALAYNA >=320 ug/ml: Resistant us Jolene Bolivar WELL LOGGING MUD ANALYSIS CAPTAIN LAB MICROBIOLOGY - GENERA L ORDERABLES Final Result [facility] [address] [place] [address], documented in this encounter Visit Diagnoses Diagnosis Frequency of micturition Urinary frequency documented in this encounter Care Teams Teacher Selection Specialist Relationship Specialty Start Date End Date Bryon Ding MD [address] [place] [address] Dr [address] [place] Jensen PCP - General 11/27/09 documented as of this encounter
--- OUTSIDE RECORDS SUMMARY | 2024-12-26 17:21 | XMS_ITS | Patient Health Record ---
Author Organization [facility] Address [address] [place] [address] Care Team Providers Care Glass Mould Cleaner Name Role Phone Bryon Ding MD Primary Care Provider Stephen Fonseca [phone] Allergies Allergen (clinical drug ingredient) Drug/Non Drug [...] Problem Status W/U Status Risk Notes Problem [id number] Encounter for screening for malignant neoplasm of colon (Z12.11) Active confirmed Problem 474184611 Irritable bowel syndrome with diarrhea (K58.0) Active confirmed Problem Screening for malignant neoplasm of rectum (682958533) Encounter for screening for malignant neoplasm of rectum (Z12.12) Active confirmed Problem 738762396 Gastroesophageal reflux disease without esophagitis (K21.9) Active confirmed Problem 10814329 Esophageal spasm (K22.4) Active confirmed Plan Of Treatment Future Test Test Name Order Date UPPER GI ENDOSCOPY 04/25/2015 COLONOSCOPY 04/25/2015 Insurance Providers Payer Name Payer Address Payer Phone Subscriber Number Group Number Insured Name Patient Relationship to Insured Coverage Start Date Coverage End Date [facility] [address] [facility] [place] [phone] [id number] ELIA NG Self - patient is the insured Medical (General) History Medical History History ICD Code Denies [place],DM,CVA,Lung disease,renal dise ase Overactive bladder GERD--small HH on a Barium swallow UTI's IBS-irregular BM's--describes a negative Flex sig with me in the 1989' negative gallbladder ultrasounds and nor mal HIDA scan with [facility] in 2009 Surgical History Surgery Date(Month/Year) Foot surgery x2 2002 Bladder suspension 1999
--- OUTSIDE RECORDS SUMMARY | 2024-12-26 17:21 | XMS_ITS | Clinical Summary ---
Author Organization [facility] Address [address] [address] Phone Care Team Providers Care Pull Worker Name Role Phone Bryon Ding MD Primary Care Provider [phone] Allergies Active Allergy Reactions Criticality Noted Date [...] Not on file Insurance HMO [address] [place], [place] [address] [place], [place] [address] [place] [address] [place] [address]O [facility] Subscriber Plan / Payer (Ef fective 2020-Present) Name:Leila Finney Relation to Subscriber:Self Name:Leila Finney Payer ID:Not on file Type:HMO Address: [place] [id number] Care Teams Pull Worker Relationship Specialty Start Date End Date Bryon Ding MD [address] [place] [address] [place] [address] PCP - General Internal Medicine 08/08/20 Additional Source Comments The information contained in this document represents components of the legal health record. It is not the complete legal health record.[facility]
--- OUTSIDE RECORDS SUMMARY | 2024-12-26 17:21 | XMS_ITS | Encounter Summary ---
[facility] [place] [address] Care Team Providers Care E Marketing Specialist Name Role Phone Bryon Ding MD Primary Care Provider + [phone] Encounter Details Date Type Department Care Team (Late st Contact Info) Description 08/30/2024 Lab Requisition [facility] - Main Lab 299 [facility] [place] [phone] Carolyn Phillips MD 3640 [facility] [address] [place] [address] Pyuria Social History Tobacco Use Types Packs/Day [...] if clinically indicated. 08/31/2024 8:59 AM EDT [facility] Other Urine specimen from urethra / Unknown 08/29/2024 08/30/2024 10:04 AM EDT us Carolyn Phillips MD LAB MICROBIOLOGY - G ENERAL ORDERABLES Final Result [facility] [address] [place] [address], documented in this encounter Visit Diagnoses Diagnosis Pyuria Other nonspecific finding on examination of urine documented in this encounter Care Teams E Marketing Specialist Relationship Specialty Start Date End Date Bryon Ding MD [address] [place] [address] Dr [address] [place], [place] PCP - General 11/27/09 documented as of this encounter
--- OUTSIDE RECORDS SUMMARY | 2024-12-26 17:21 | XMS_ITS | Clinical Summary ---
Author Organization [address] Address [address] [place] [address] Phone Care Team Providers Care Metal Ceiling Builder Name Role Phone Bryon Ding MD Primary Care Provider [phone] Allergies Active Allergy Reactions Criticality Noted Date [...] esophagi tis 08/15/2024 DVT (deep venous thrombosis) ([facility] V24, [facility] V28) 08/15/2024 HTN (hypertension) 08/15/2024 PONV (postoperative nausea and vomiting) 025 Surgical History Surgery Date Site/Laterality Comments VAGINAL DELIVERY PROCEDURE: [place] VAGINAL DELIVERY ONLY; COMMENT: times 3 TUBAL [...] vomiting) DVT of proximal lower limb ( [facility] V24, [facility] V28) 1994 HTN (hypertension) 08/15/2024 Family History [...] this topic Medical Devices Implanted Type Area Statistical Modeler Device Identifier Shelf Expiration Date Model / Serial / Lot Sling Mid-Urethral Lynx Sys Urinary Incontinence - Sn/A - [id number] Implanted:Qty: 1 on 08/15/2024 by Carolyn Phillips MD at [facility] Surgical Mesh Sling Implants N/A: Pelvis [employer] [id number] 11/12/2026 [id number] / N/A / [id number] Procedures Procedure Name Priority Date/Time Associated Diagnosis [...] mammography. Return to annual mammography. Mammo Location: [facility], [address] [place] [address], [address], . -------- FINAL REPORT -------- Dictated By: Yris Kwan Dictated Date: 06/01/2024 10:11 ET Assigned Physician: Yris Kwan Reviewed and Electronically Signed By: Yris Kwan Signed Date: 06/01/2024 10:29 ET Workstation ID: [id number] Transcribed By: Self Edit Transcribed Date: 06/01/2024 [...] mammography. Return to annual mammography. Mammo Location: [facility], [address] [place] [address], [address], . -------- FINAL REPORT -------- Dictated By: Yris Kwan Dictated Date: 06/01/2024 10:11 ET Assigned Physician: Yris Kwan Reviewed and Electronically Signed By: Yris Kwan Signed Date: 06/01/2024 10:29 ET Workstation ID: [id number] Transcribed By: Self Edit Transcribed Date: 06/01/2024 [...] spine and left hip were obtained using [employer] Discovery W (S/N [id number]). COMPARISON: None FINDINGS: L1-L4 BMD: 1.027 g/cm2 [...] lumbar spineand left hip were obtained using [employer] Discovery W (S/N 42954). COMPARISON: None FINDINGS: L1-L4 BMD: 1.027 g/cm2 [...] Insurance [employer] Care Teams Metal Ceiling Builder Relationship Specialty Start Date End Date Bryon Ding MD [address] [place] [address] [address] [place] [address] [place], [place] PCP - General 11/27/09
--- OUTSIDE RECORDS SUMMARY | 2024-12-26 17:21 | XMS_ITS | Encounter Summary ---
[facility] [place] [address] Care Team Providers Care Electrotyper Apprentice Name Role Phone Bryon Ding MD Primary Care Provider + [phone] Encounter Details Date Type Department Care Team (Late st Contact Info) Description 09/02/2024 Lab Requisition [facility] - Main Lab 299 [facility] [place] [phone] Jolene Bolivar, JAYJAY 3640 [facility] 103 [place] [address] Urgency of urination Social History Tobacco Use [...] Urine No growth 09/03/2024 7:23 AM EDT [facility] Urine Urine specimen from urethra / Unknown 09/02/2024 09/02/2024 1:27 PM EDT us Jolene Bolivar CELLULAR EQUIPMENT REPAIRER LAB MICROBIOLOGY - GENERA L ORDERABLES Final Result [facility] [address] [place] [address], documented in this encounter Visit Diagnoses Diagnosis Urgency of urination documented in this encounter Care Teams Electrotyper Apprentice Relationship Specialty Start Date End Date Bryon Ding MD [address] [place] [address] Dr [address] [place], [place] PCP - General 11/27/09 documented as of this encounter
--- OUTSIDE RECORDS SUMMARY | 2024-12-26 17:21 | XMS_ITS | Patient Health Record ---
Author Organization [facility] Address [address] [place] [address] Care Team Providers Care Milling Machine Operator Gear Name Role Phone Christina Ding MDh Primary Care Provider Unava ilable Black, [place] Unavailable [phone] Allergies Allergen (clinical drug ingredient) Drug/Non Drug [...] Problem Acquired hammer toe of right foot (211692483399 9105) Other hammer toe(s) (acquired), right foot (M20.41) Active confirmed Problem Acquired hammer toe of left foot (237657760654 9103) Other hammer toe(s) (acquired), left foot (M20.42) Active confirmed Problem Plantar nerve lesion (850496239) Lesion of plantar nerve, 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) Active confirmed Problem Plantar nerve lesion (532847987) Lesion of plantar nerve, left lower limb (G57.62) Active confirmed Problem PlantarFlexion o f metatarsal of right foot (M21.6X1) Active confirmed Problem PlantarFlexion o f metatarsal of left foot (M21.6X2) Active confirmed Plan Of Treatment No Information Insurance Providers Payer Name Payer Address Payer Phone Subscriber Number Group Number Insured Name Patient Relationship to Insured Coverage Start Date Coverage End Date [facility] [address] [place] [address] [id number] Leila Finney Self - patient is the insured Medical (General) History Medical History History ICD Code Back,Hip,and Knee pain Cataracts Headaches/Migraines Measles Mumps Chicken pox Joint implants/screws Reflux Sciatica Surgical History Surgery Date(Month/Year) back surgery achilles tendon surgery colonoscopy wisdom teeth extraction
[2024-12-27 09:23] LABS: Rubeola IgG (Measles) >300.00 AU/mL
== END 2024-12-26 12:39 | disposition home or self-care (01) ==
LOC: HO.HMGCX 12:38
PROVIDERS: PCP Internal Medicine; Visit Provider Internal Medicine
DX: Z01.84 Encounter for antibody response examination (principal); M79.641 Pain in right hand; M79.642 Pain in left hand; M25.512 Pain in left shoulder; Z78.9 Other specified health status
CPT/HCPCS: 36415; 73030; 73130; 86735; 86762; 86765

== ENCOUNTER → 2024-12-26 13:46 | Outpatient (BNV) | payer MEDICARE, SELFPAY | PROVIDERS: PCP Internal Medicine; Visit Provider Radiology Diagnostic Radiology | DX: M19.012 Primary osteoarthritis, left shoulder (principal); M19.041 Primary osteoarthritis, right hand | CPT/HCPCS: 73030; 73130 ==

== ENCOUNTER 2024-12-29 12:51 | Outpatient (REF) | payer MEDICARE, SELFPAY ==
--- OUTSIDE RECORDS SUMMARY | 2024-12-29 14:55 | XMS_ITS | Encounter Summary ---
[facility] [place] [address] Care Team Providers Care Center Director Name Role Phone Bryon Ding MD Primary Care Provider + [phone] Encounter Details Date Type Department Care Team (Late st Contact Info) Description 08/30/2024 Lab Requisition [facility] - Main Lab 299 [facility] [place] [phone] Carolyn Phillips MD 3640 [facility] [address] [place] [address] Pyuria Social History Tobacco Use Types Packs/Day [...] Result [facility] [address] [place] [address], documented in this encounter Visit Diagnoses Diagnosis Pyuria Other nonspecific finding on examination of urine documented in this encounter Care Teams Center Director Relationship Specialty Start Date End Date Bryon Ding MD [address] [place] [address] Dr [address] [place], [place] PCP - General 11/27/09 documented as of this encounter
--- OUTSIDE RECORDS SUMMARY | 2024-12-29 14:55 | XMS_ITS | Encounter Summary ---
Author Organization [facility] [place] [address] Care Team Providers Care Silo Worker Name Role Phone Bryon Ding MD Primary Care Provider + [phone] Encounter Details Date Type Department Care Team (Late st Contact Info) Description 05/26/2024 Lab Requisition [facility] - Main Lab 299 [facility] [place] [phone] Jolene Bolivar NP 3640 [facility] 103 [place], [place] [phone] Frequency of micturition Social History Tobacco Use [...] mirabilis(A ) ALAYNA 05/27/2024 10:54 AM EST [facility] Comment: Edited result: Previously reported as Proteus species on 05/26/2024 at 1104 EST. Other Urine specimen from urethra / Unknown 05/25/2024 05/26/2024 9:57 AM EST Narrative [facility] - 05/27/2024 10:54 AM [...] ALAYNA >=320 ug/ml: Resistant us Jolene Bolivar CHIEF GAUGER LAB MICROBIOLOGY - GENERA L ORDERABLES Final Result [facility] 299 [place] [address], documented in this encounter Visit Diagnoses Diagnosis Frequency of micturition Urinary frequency documented in this encounter Care Teams Silo Worker Relationship Specialty Start Date End Date Bryon Ding MD [address] [place] [address] Dr [address] [place] Jensen PCP - General 11/27/09 documented as of this encounter
--- OUTSIDE RECORDS SUMMARY | 2024-12-29 14:55 | XMS_ITS | Clinical Summary ---
Author Organization [address] Address [address] [place] [address] Phone Care Team Providers Care Wound Nurse Name Role Phone Bryon Ding MD Primary Care Provider [phone] Allergies Active Allergy Reactions Criticality Noted Date [...] esophagi tis 08/15/2024 DVT (deep venous thrombosis) ([facility] V24, [facility] V28) 08/15/2024 HTN (hypertension) 08/15/2024 PONV (postoperative nausea and vomiting) 025 Surgical History Surgery Date Site/Laterality Comments VAGINAL DELIVERY PROCEDURE: [place] VAGINAL DELIVERY ONLY; COMMENT: times 3 TUBAL [...] vomiting) DVT of proximal lower limb ( [facility] V24, [facility] V28) 1994 HTN (hypertension) 08/15/2024 Family History [...] this topic Medical Devices Implanted Type Area Director Of Music Device Identifier Shelf Expiration Date Model / Serial / Lot Sling Mid-Urethral Lynx Sys Urinary Incontinence - Sn/A - [id number] Implanted:Qty: 1 on 08/15/2024 by Carolyn Phillips MD at [facility] Surgical Mesh Sling Implants N/A: Pelvis [employer] [id number] 11/12/2026 [id number] / N/A / [id number] Procedures Procedure Name Priority Date/Time Associated Diagnosis [...] mammography. Return to annual mammography. Mammo Location: [facility], [address] [place] [address], [address], . -------- FINAL REPORT -------- Dictated By: Yris Kwan Dictated Date: 06/01/2024 10:11 ET Assigned Physician: Yris Kwan Reviewed and Electronically Signed By: Yris Kwan Signed Date: 06/01/2024 10:29 ET Workstation ID: [id number] Transcribed By: Self Edit Transcribed Date: 06/01/2024 [...] mammography. Return to annual mammography. Mammo Location: [facility], [address] [place] [address], [address], . -------- FINAL REPORT -------- Dictated By: Yris Kwan Dictated Date: 06/01/2024 10:11 ET Assigned Physician: Yris Kwan Reviewed and Electronically Signed By: Yris Kwan Signed Date: 06/01/2024 10:29 ET Workstation ID: [id number] Transcribed By: Self Edit Transcribed Date: 06/01/2024 [...] spine and left hip were obtained using [employer] Discovery W (S/N [id number]). COMPARISON: None FINDINGS: L1-L4 BMD: 1.027 g/cm2 [...] lumbar spineand left hip were obtained using [employer] Discovery W (S/N 04300). COMPARISON: None FINDINGS: L1-L4 BMD: 1.027 g/cm2 [...] Insurance [employer] Care Teams Wound Nurse Relationship Specialty Start Date End Date Bryon Ding MD [address] [place] [address] [address] [place], [place] PCP - General 11/27/09
--- OUTSIDE RECORDS SUMMARY | 2024-12-29 14:55 | XMS_ITS | Encounter Summary ---
Author [facility] [place] [address] Care Team Providers Care Surveyor Helper Name Role Phone Bryon Ding MD Primary Care Provider + [phone] Encounter Details Date Type Department Care Team (Late st Contact Info) Description 09/02/2024 Lab Requisition [facility] - Main Lab 299 [facility] [place] [phone] Jolene Bolivar, JAYJAY 3640 [facility] 103 [place] [address] Urgency of urination Social History Tobacco Use [...] Urine No growth 09/03/2024 7:23 AM EDT [facility] Urine Urine specimen from urethra / Unknown 09/02/2024 09/02/2024 1:27 PM EDT us Jolene Bolivar CUT OUT STITCHER LAB MICROBIOLOGY - GENERA L ORDERABLES Final Result [facility] [address] [place] [address], documented in this encounter Visit Diagnoses Diagnosis Urgency of urination documented in this encounter Care Teams Surveyor Helper Relationship Specialty Start Date End Date Bryon Ding MD [address] [place] [address] [address] [place], [place] PCP - General 11/27/09 documented as of this encounter
--- OUTSIDE RECORDS SUMMARY | 2024-12-29 14:55 | XMS_ITS | Clinical Summary ---
Author Organization [facility] Address [address] [address] Phone Care Team Providers Care Miner Assistant Name Role Phone Bryon Ding MD Primary Care Provider +[phone] Allergies Active Allergy Reactions Criticality Noted Date [...] Not on file Insurance HMO [address] [place], [place] [address] [place], [place] [address] [place], [place] [address] [place], [place] [address]O [facility] Member Subscriber Plan / Payer (Ef fective 2020-Present) Name:Leila Finney Relation to Subscriber:Self Name:Leila Finney Payer ID:Not on file Type:HMO Address: [place] [id number] Care Teams Miner Assistant Relationship Specialty Start Date End Date Bryon Ding MD [address] [place] [address] [place] [address] PCP - General Internal Medicine 08/08/20 Additional Source Comments The information contained in this document represents components of the legal health record. It is not the complete legal health record.[facility]
[2025-01-02 12:24] LABS: Anti Nuclear Antibody Screen NEGATIVE (NEGATIVE)
== END 2024-12-29 12:52 | disposition home or self-care (01) ==
LOC: HO.HMGCLDS 12:51
PROVIDERS: PCP Internal Medicine; Visit Provider Internal Medicine
DX: M25.50 Pain in unspecified joint (principal)
CPT/HCPCS: 36415; 85652; 86038; 86140; 86431

== ENCOUNTER 2025-01-02 10:35 | Outpatient (REF) | payer MEDICARE, SELFPAY | END 2025-01-02 10:36 | disposition home or self-care (01) | LOC: HO.LNP 10:35 | PROVIDERS: PCP Internal Medicine; Visit Provider Physician Assistant Medical | DX: N39.0 Urinary tract infection, site not specified (principal); R30.0 Dysuria | CPT/HCPCS: 81003; 87086; 87088; 87186; 99212 ==

== ENCOUNTER 2025-01-02 10:35 | Outpatient (AMB) | payer MEDICARE, SELFPAY ==
--- NOTE | 2025-01-02 10:44 | AM.OFFWIN_ITS ---
Intake Vital Signs 01/02/25 10:47 Height 5 ft 4 in BMI Reason not done Patient refused/unable BP 122/74 Blood Pressure Location Rt brachial Position Sitting Pulse 80 Pulse Source Pulse Oximeter Temp 97.8 F Temp Source Oral Pulse Oximetry (%) 98 Oxygen Delivery Method Room Air Intake Visit Reasons: EP-UTI Intake Note: pt is here for c.o burning sensation, frequent urination. patient took AZO, OTC Patient Tobacco Use Status: Former Tobacco user Allergies oxycodone (From PERCOCET) Allergy (Severe, Verified 01/02/25 10:47) HIVES hydrocodone (From VICODIN) Adverse Reaction (Severe, Verified 01/02/25 10:47) PASS OUT/VOMITING atorvastatin Adverse Reaction (Intermediate, Verified 01/02/25 10:47) myalgia rosuvastatin Adverse Reaction (Intermediate, Verified 01/02/25 10:47) myalgia Monistat 1 Allergy (Severe, Uncoded 12/19/24 13:07) Rash Suprep Bowel Prep Adverse Reaction (Severe, Uncoded 12/19/24 13:07) Nausea and Vomiting Do you need a note to return to daycare/school/sports/work: No HPI HPI Comments History of Present Illness Details History - The patient is a 69-year-old female pr esenting with symptoms suggestive of a urinary tract infection. - The patient reports a burning sensatio n during urination and severe pain, which started approximately three to four days ago. - She experiences nocturia and has been up all night urinating with associated burning sensation. - Initially, she thought the symptoms wo uld resolve on their own as she is scheduled to see her urologist in three weeks. - The patient has taken an plgj-qgs-wgsz ter medication, Azo, which provided some relief, but she only had one dose available. - She has a history of urinary tract inf ections typically caused by E. coli, as noted by her urologist. - The patient is allergic to Percocet an d Vicodin. - She denies hematuria, back pain, vomit ing, diarrhea, CP, SOB, fever, or chills. Physical Exam General: Cooperative, healthy appearing, comfortable, no acute distress and well developed Cardiac: Normal S1 and S2. RRR, no M/R/G noted. Respiratory: Normal respiratory effort and able to speak in complete sentences. Clear to auscultation bilaterally. No w/r/r noted. Skin: No rashes or lesions noted. GI: Normal inspection. Normal BS noted. Soft, non-tender, non-distended. No TTP of all 4 quadrants. No guarding or rebound tenderness noted. Back: Negative CVA bilaterally Patient was informed and verbally consented to the use of an ambient scribe for clinic note documentation during this visit. [facility] Medical History (Updated 12/28/24 @ 13:18 by Bryon Ding MD) Recurrent UTI Tinnitus Overactive bladder Obesity (BMI 30-39.9) GERD with esophagitis Personal history of COVID-19 PONV (postoperative nausea and vomiting) Impaired fasting glucose Pure hypercholesterolemia Benign essential hypertension GERD (gastroesophageal reflux disease) Dizziness Cataract Lumbar degenerative disc disease History of paroxysmal supraventricular tachycardia History of deep venous thrombosis (~2002) Migraine Mitral valve prolapse Surgical History History of esophagogastroduodenoscopy (EGD) History of colonoscopy (~06/28/15) History of surgery (~2002) History of surgery Family History Father Diabetes Hypertension Stroke Cardiovascular disease Mother Myocardial infarction Social History Housing: House Are you a primary primary care provider to a significant other at home: No Do you presently have visiting nurse or other home services: No Alcohol intake: current Alcohol intake frequency: a few times a week Patient Tobacco Use Status: Former Tobacco user e-Cigarette/Vaping Use: Never Used Second Hand Smoke Exposure: Yes service: No Current occupational status: retired Cognitive needs: No Hearing needs: No Vision needs: Yes Review of Systems Const All systems reviewed & are unremarkable except as noted in HPI and below Physical Exam Vital Signs: Last Vital Signs Temp 97.8 F 01/02/25 10:47 Pulse 80 01/02/25 10:47 BP 122/74 01/02/25 10:47 Pulse Ox 98 01/02/25 10:47 Oxygen Delivery Method Room Air 01/02/25 10:47 Results AMB Urinalysis, Automated UA Leukoctes 500 Cristal/uL Last Edit by Vaibhav Muhammad CMA on 01/02/25 11:0 4 UA Nitrite Negative Last Edit by Vaibhav Muhammad CMA on 01/02/25 11:04 UA Urobilinogen 0.2 mg/dL Last Edit by Vaibhav Muhammad CMA on 01/02/25 11 :04 UA Protein 0 mg/dL Last Edit by Vaibhav Muhammad CMA on 01/02/25 11:04 UA pH 6.0 Last Edit by Vaibhav Muhammad CMA on 01/02/25 11:04 UA Blood 10 Kvng/uL Last Edit by Vaibhav Muhammad CMA on 01/02/25 11:04 UA Specific [place] 1.010 Last Edit by Vaibhav Muhammad CMA on 01/02/25 11:04 UA Ketone Negative Last Edit by Vaibhav Muhammad CMA on 01/02/25 11:04 UA Bilirubin 0 mg/dL Last Edit by Vaibhav Muhammad CMA on 01/02/25 11:04 UA Glucose 0 mg/dL Last Edit by Vaibhav Muhammad CMA on 01/02/25 11:04 Results Reviewed Results Reviewed: Laboratory Last Values Urine pH (Auto) 6.0 01/02/25 11:03 Specific [place] (Auto) 1.010 01/02/25 11:03 Urine Protein (Auto) 0 mg/dL 01/02/25 11:03 Glucose (UA)(Auto) 0 mg/dL 01/02/25 11:03 Urine Ketones (Auto) Negative 01/02/25 11:03 Urine Blood (Auto) 10 Kvng/uL 01/02/25 11:03 Urine Nitrite (Auto) Negative 01/02/25 11:03 Urine Bilirubin (Auto) 0 mg/dL 01/02/25 11:03 Urine Urobilinogen (Auto) 0.2 mg/dL 01/02/25 11:03 Leukocyte Esterase (Auto) 500 Cristal/uL 01/02/25 11:03 Assessment & Plan Assessment & Plan (1) Dysuria: Code(s): R30.0 - Dysuria Plan Most likely UTI UA is 3+leuko,+blood Plan - drink lots of fluids - pyridium TID for 2 days - An antibiotic will be prescribed and a urine culture will be sent to identify the causative organism. - If the culture results necessitate a change in antibiotic, the patient will be contacted to adjust the treatment accordingly - follow up with PCP. Orders: Orders AMB Urinalysis Automated Today Z13.9 - Encounter for screening, unspecified Urine Culture Today N39.0 - Urinary tract infection, site not specified Medications: New cefuroxime axetil 500 mg PO Q12H 10 tabs 0RF phenazopyridine 100 mg PO tid PRN 6 tabs 0RF Pain Coding Level of Care Code Est Pt Level 3 (19595) Diagnoses Dysuria R30.0
[2025-01-02 10:47] VITALS: BP 122/74; PULSE 80; TEMP 36.6; O2SAT 98
--- OUTSIDE RECORDS SUMMARY | 2025-01-02 12:59 | XMS_ITS | Clinical Summary ---
Author Organization [facility] Address [address] [address] Phone Care Team Providers Care Mail Superintendent Name Role Phone Bryon Ding MD Primary Care Provider [phone] Allergies Active Allergy Reactions Criticality Noted Date [...] Not on file Insurance HMO [address] [place], [place] [address] [place] [address] [place] [address] [place] [address] [facility] Member Subscriber Plan / Payer (Ef fective 2020-Present) Name:Leila Finney Relation to Subscriber:Self Name:Leila Finney Payer ID:Not on file Type:HMO Address: [place] [id number] Care Teams Mail Superintendent Relationship Specialty Start Date End Date Bryon Ding MD [address] [place] [address] [place] [id number] PCP - General Internal Medicine 08/08/20 Additional Source Comments The information contained in this document represents components of the legal health record. It is not the complete legal health record.[facility]
--- OUTSIDE RECORDS SUMMARY | 2025-01-02 12:59 | XMS_ITS | Patient Health Record ---
[facility] Address [address] [place] [address] Care Team Providers Care Lease Broker Name Role Phone Christina Ding MDh Primary Care Provider Unava ilable Black, Taylor Unavailable [phone] Allergies Allergen (clinical drug ingredient) Drug/Non Drug [...] Problem Acquired hammer toe of right foot (271942870795 9105) Other hammer toe(s) (acquired), right foot (M20.41) Active confirmed Problem Acquired hammer toe of left foot (691572959462 9103) Other hammer toe(s) (acquired), left foot (M20.42) Active confirmed Problem Plantar nerve lesion (445291547) Lesion of plantar nerve, 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) Active confirmed Problem Plantar nerve lesion (272559110) Lesion of plantar nerve, left lower limb (G57.62) Active confirmed Problem PlantarFlexion o f metatarsal of right foot (M21.6X1) Active confirmed Problem PlantarFlexion o f metatarsal of left foot (M21.6X2) Active confirmed Plan Of Treatment No Information Insurance Providers Payer Name Payer Address Payer Phone Subscriber Number Group Number Insured Name Patient Relationship to Insured Coverage Start Date Coverage End Date [facility] [address] [place] [address] [id number] Leila Finney Self - patient is the insured Medical (General) History Medical History History ICD Code Back,Hip,and Knee pain Cataracts Headaches/Migraines Measles Mumps Chicken pox Joint implants/screws Reflux Sciatica Surgical History Surgery Date(Month/Year) back surgery achilles tendon surgery colonoscopy wisdom teeth extraction
--- OUTSIDE RECORDS SUMMARY | 2025-01-02 12:59 | XMS_ITS | Clinical Summary ---
Author Organization [address] Address [address] [place] [address] Phone Care Team Providers Care Court Bailiff Name Role Phone Bryon Ding MD Primary Care Provider [phone] Allergies Active Allergy Reactions Criticality Noted Date [...] esophagi tis 08/15/2024 DVT (deep venous thrombosis) ([facility] V24, [facility] V28) 08/15/2024 HTN (hypertension) 08/15/2024 PONV (postoperative nausea and vomiting) 025 Surgical History Surgery Date Site/Laterality Comments VAGINAL DELIVERY PROCEDURE: [place] VAGINAL DELIVERY ONLY; COMMENT: times 3 TUBAL [...] vomiting) DVT of proximal lower limb ( [facility] V24, [facility] V28) 1994 HTN (hypertension) 08/15/2024 Family [...] this topic Medical Devices Implanted Type Area Senior Linux Administrator Device Identifier Shelf Expiration Date Model / Serial / Lot Sling Mid-Urethral Lynx Sys Urinary Incontinence - Sn/A - [id number] Implanted:Qty: 1 on 08/15/2024 by Carolyn Phillips MD at [facility] Surgical Mesh Sling Implants N/A: Pelvis [employer] [facility] [id number] 11/12/2026 [id number] / N/A / [id number] Procedures Procedure Name Priority Date/Time Associated Diagnosis [...] mammography. Return to annual mammography. Mammo Location: [facility], [address] [place] [address], [id number], . -------- FINAL REPORT -------- Dictated By: Yris Kwan Dictated Date: 06/01/2024 10:11 ET Assigned Physician: Yris Kwan Reviewed and Electronically Signed By: Yris Kwan Signed Date: 06/01/2024 10:29 ET Workstation ID: [id number] Transcribed By: Self Edit Transcribed Date: 06/01/2024 [...] mammography. Return to annual mammography. Mammo Location: [facility], [address] [place] [address], [address], . -------- FINAL REPORT -------- Dictated By: Yris Kwan Dictated Date: 06/01/2024 10:11 ET Assigned Physician: Yris Kwan Reviewed and Electronically Signed By: Yris Kwan Signed Date: 06/01/2024 10:29 ET Workstation ID: [id number] Transcribed By: Self Edit Transcribed Date: 06/01/2024 [...] spine and left hip were obtained using [employer] Discovery W (S/N [id number]). COMPARISON: None FINDINGS: L1-L4 BMD: 1.027 g/cm2 [...] lumbar spineand left hip were obtained using [employer] W (S/N [id number]). COMPARISON: None FINDINGS: L1-L4 BMD: 1.027 g/cm2 [...] Insurance [facility] Care Teams Court Bailiff Relationship Specialty Start Date End Date Bryon Ding MD [address] [place] [address] [address] [place], [place] PCP - General 11/27/09
--- OUTSIDE RECORDS SUMMARY | 2025-01-02 12:59 | XMS_ITS | Encounter Summary ---
Author Organization [facility] [place] [address] Care Team Providers Care Community Organization Director Name Role Phone Bryon Ding MD Primary Care Provider + [phone] Encounter Details Date Type Department Care Team (Late st Contact Info) Description 09/02/2024 Lab Requisition [facility] - Main Lab [address] [facility] [place] [phone] Jolene Bolivar, JAYJAY [address] [facility] [address] [place] [address] Urgency of urination Social History Tobacco Use [...] Urine No growth 09/03/2024 7:23 AM EDT [facility] Urine Urine specimen from urethra / Unknown 09/02/2024 09/02/2024 1:27 PM EDT us Jolene Bolivar MOPHEAD TRIMMER AND WRAPPER LAB MICROBIOLOGY - GENERA L ORDERABLES Final Result [facility] [address] [place] [address], documented in this encounter Visit Diagnoses Diagnosis Urgency of urination documented in this encounter Care Teams Community Organization Director Relationship Specialty Start Date End Date Bryon Ding MD [address] [place] [address] [address] [place], [place] PCP - General 11/27/09 documented as of this encounter
--- OUTSIDE RECORDS SUMMARY | 2025-01-02 12:59 | XMS_ITS | Patient Health Record ---
Author Organization [facility] Address [address] [place] [address] Care Team Providers Care Floor Sanding Machine Operator Name Role Phone Bryon Ding MD Primary Care Provider Stephen Fonseca [phone] Allergies Allergen (clinical drug ingredient) Drug/Non Drug [...] Problem Status W/U Status Risk Notes Problem [id number] Encounter for screening for malignant neoplasm of colon (Z12.11) Active confirmed Problem [id number] Irritable bowel syndrome with diarrhea (K58.0) Active confirmed Problem Screening for malignant neoplasm of rectum (534320296) Encounter for screening for malignant neoplasm of rectum (Z12.12) Active confirmed Problem 752926977 Gastroesophageal reflux disease without esophagitis (K21.9) Active confirmed Problem 99967656 Esophageal spasm (K22.4) Active confirmed Plan Of Treatment Future Test Test Name Order Date UPPER GI ENDOSCOPY 04/25/2015 COLONOSCOPY 04/25/2015 Insurance Providers Payer Name Payer Address Payer Phone Subscriber Number Group Number Insured Name Patient Relationship to Insured Coverage Start Date Coverage End Date [facility] [address] [facility] [place] [phone] [id number] ELIA NG Self - patient is the insured Medical (General) History Medical History History ICD Code Denies AK,DM,CVA,Lung disease,renal dise ase Overactive bladder GERD--small HH on a Barium swallow UTI's IBS-irregular BM's--describes a negative Flex sig with me in the 1989' negative gallbladder ultrasounds and nor mal HIDA scan with [facility]CK in 2009 Surgical History Surgery Date(Month/Year) Foot surgery x2 2002 Bladder suspension 1999
--- OUTSIDE RECORDS SUMMARY | 2025-01-02 12:59 | XMS_ITS | Encounter Summary ---
Author Organization [facility] [place] [address] Care Team Providers Care Crm Manager Name Role Phone Bryon Ding MD Primary Care Provider + [phone] Encounter Details Date Type Department Care Team (Late st Contact Info) Description 05/26/[address] [facility] - Main Lab [address] [facility] [place] [phone] Jolene Bolivar NP [address] [facility] [address] [place], [place] [phone] Frequency of micturition Social History Tobacco Use [...] mirabilis(A ) ALAYNA 05/27/2024 10:54 AM EST [facility] Comment: Edited result: Previously reported as Proteus species on 05/26/2024 at 1104 EST. Other Urine specimen from urethra / Unknown 05/25/2024 05/26/2024 9:57 AM EST Narrative [facility] - 05/27/2024 10:54 AM [...] ALAYNA >=320 ug/ml: Resistant us Jolene Bolivar BOAT OFFICER LAB MICROBIOLOGY - GENERA L ORDERABLES Final Result [facility] [address] [place] [address], documented in this encounter Visit Diagnoses Diagnosis Frequency of micturition Urinary frequency documented in this encounter Care Teams Crm Manager Relationship Specialty Start Date End Date Bryon Ding MD [address] [place] [address] Dr [address] [place] PCP - General 11/27/09 documented as of this encounter
--- OUTSIDE RECORDS SUMMARY | 2025-01-02 12:59 | XMS_ITS | Encounter Summary ---
Author Organization [facility] [place] [address] Care Team Providers Care Property Utilization Officer Name Role Phone Bryon Ding MD Primary Care Provider + [phone] Encounter Details Date Type Department Care Team (Late st Contact Info) Description 08/30/2024 Lab Requisition [facility] - Main Lab [address] [facility] [place] [phone] Carolyn Phillips MD [address] [facility] [address] [place] [address] Pyuria Social History Tobacco Use Types Packs/Day [...] Result [facility] [address] [place] [address], documented in this encounter Visit Diagnoses Diagnosis Pyuria Other nonspecific finding on examination of urine documented in this encounter Care Teams Property Utilization Officer Relationship Specialty Start Date End Date Bryon Ding MD [address] [place] [address] Dr [address] [place], [place] PCP - General 11/27/09 documented as of this encounter
== END 2025-01-02 11:33 | disposition home or self-care (01) ==
PROVIDERS: PCP Internal Medicine; Visit Provider Physician Assistant Medical
DX: Z13.9 Encounter for screening, unspecified (principal); R30.0 Dysuria

== ENCOUNTER 2025-01-18 09:55 | Outpatient (AMB) | payer MEDICARE, SELFPAY ==
[2025-01-18 10:06] VITALS: BP 136/88; PULSE 74; TEMP 36.6; O2SAT 97
--- NOTE | 2025-01-18 10:06 | AM.OFFWIN_ITS ---
Intake Vital Signs 01/18/25 10:06 Height 5 ft 4 in BMI Reason not done Patient refused/unable BP 136/88 Blood Pressure Location Lt brachial Position Sitting Pulse 74 Pulse Source Pulse Oximeter Temp 97.9 F Temp Source Oral Pulse Oximetry (%) 97 Oxygen Delivery Method Room Air Intake Visit Reasons: EP-sinus congestion, ears ache, cough Patient Tobacco Use Status: Former Tobacco user Allergies oxycodone (From PERCOCET) Allergy (Severe, Verified 01/18/25 10:07) HIVES hydrocodone (From VICODIN) Adverse Reaction (Severe, Verified 01/18/25 10:07) PASS OUT/VOMITING atorvastatin Adverse Reaction (Intermediate, Verified 01/18/25 10:07) myalgia rosuvastatin Adverse Reaction (Intermediate, Verified 01/18/25 10:07) myalgia Monistat 1 Allergy (Severe, Uncoded 12/19/24 13:07) Rash Suprep Bowel Prep Adverse Reaction (Severe, Uncoded 12/19/24 13:07) Nausea and Vomiting Do you need a note to return to daycare/school/sports/work: No HPI HPI Comments History of Present Illness Details History - The patient is a 69-year-old female pr esenting with jaw pain and ear discomfort. - The jaw and ear pain began 3 days ago, primarily affecting the right side, and is associated with phlegm and throat discomfort. - The patient denies fever, dental pain, or history of ear infections. - The patient reports relief from pain w ith ibuprofen and Aleve, but experiences significant discomfort without them. - There is no history of similar symptom s or sinusitis-like episodes in the past. - Has fluticasone spray at home Physical Exam General: Cooperative, healthy appearing, comfortable and no acute distress Orientation/consciousness: Patient oriented x3 Limitations: No limitations Head: Normal to inspection Ears: Hearing grossly normal bilaterally, external ears normal and TM's normal bilaterally Nose: Normal external nose present, Normal nares present and No nasal discharge present Face and sinus: Normal facial exam and Yes sinuses tender right maxillary Mouth: Normal oral and palatal mucosa present and moist mucous membranes Throat: Yes tonsils normal, Yes uvula midline. Posterior oropharynx erythema, no exudates Eyes: Appearance normal, both eyes and all related structures Neck: Normal visual inspection, full ROM Respiratory:normal respiratory effort, able to speak in complete sentences, no respiratory distress, not tachypneic, no tripod positioning and no use of accessory muscles Skin: No rashes or lesions noted Neuro: Patient oriented x3 Extremities: Normal to inspection and Yes no clubbing, cyanosis or edema Review of Systems - HEENT: Reports jaw pain and ear discom fort, denies fever, dental pain, or history of ear infections. - Respiratory: Denies shortness of breat h or wheezing. All systems reviewed and are unremarkable except as noted in HPI [facility] Medical History (Updated 01/18/25 @ 10:34 by Nirali Browning PA-C) Recurrent UTI Tinnitus Overactive bladder Obesity (BMI 30-39.9) GERD with esophagitis Personal history of COVID-19 PONV (postoperative nausea and vomiting) Impaired fasting glucose Pure hypercholesterolemia Benign essential hypertension GERD (gastroesophageal reflux disease) Dizziness Cataract Lumbar degenerative disc disease History of paroxysmal supraventricular tachycardia History of deep venous thrombosis (~2002) Migraine Mitral valve prolapse Surgical History History of esophagogastroduodenoscopy (EGD) History of colonoscopy (~06/28/15) History of surgery (~2002) History of surgery Family History Father Diabetes Hypertension Stroke Cardiovascular disease Mother Myocardial infarction Social History Housing: House Are you a primary healthcare economics consultant to a significant other at home: No Do you presently have visiting nurse or other home services: No Alcohol intake: current Alcohol intake frequency: a few times a week Patient Tobacco Use Status: Former Tobacco user e-Cigarette/Vaping Use: Never Used Second Hand Smoke Exposure: Yes service: No Current occupational status: retired Cognitive needs: No Hearing needs: No Vision needs: Yes Physical Exam Vital Signs: Last Vital Signs Temp 97.9 F 01/18/25 10:06 Pulse 74 01/18/25 10:06 BP 136/88 01/18/25 10:06 Pulse Ox 97 01/18/25 10:06 Oxygen Delivery Method Room Air 01/18/25 10:06 Assessment & Plan Assessment & Plan (1) Acute maxillary sinusitis: Code(s): J01.00 - Acute maxillary sinusitis, unspecified Qualifiers: Recurrence: non-recurrent Qualified Code(s): J01.00 - Acute maxillary sinusitis, unspecified Plan: Patient was informed and verbally consented to the use of an ambient scribe for clinic note documentation during this visit. - VSS, pt well appearing and PE remarkable for right sided maxillary tenderness. - A viral swab was sent to determine if the sinusitis is viral. - A short course of prednisone taper was recommended to reduce inflammation and alleviate symptoms. - Fluticasone nasal spray (Flonase) was advised for local symptom relief, with instructions on proper usage. - A sinus rinse with a neti pot and distilled water was suggested to help clear the sinuses. - If the swab results are negative for viral infection, an antibiotic will be prescribed. - No NSAIDS with solumedrol use as it could increase risk for GI bleed if history of ulcers. Orders: Orders Resp Pathogen Panel - [facility] Today J06.9 - Acute upper respiratory infection, unspecified Medications: New methylprednisolone PO PER PKG DIR for 6 days 21 ea 0RF Coding Level of Care Code Est Pt Level 3 (93490) Diagnoses Acute non-recurrent maxillary sinusitis J01.00 Recurrence: non-recurrent
== END 2025-01-18 10:35 | disposition home or self-care (01) ==
PROVIDERS: PCP Internal Medicine; Visit Provider Physician Assistant
DX: J01.00 Acute maxillary sinusitis, unspecified (principal)

== ENCOUNTER 2025-01-18 09:55 | Outpatient (REF) | payer MEDICARE, SELFPAY ==
[2025-01-19 07:51] LABS: Chlamydia pneumoniae PCR Not Detected (Not Detect.); Coronavirus 229E PCR Not Detected (Not Detect.); Coronavirus HKU1 PCR Not Detected (Not Detect.); Coronavirus NL63 PCR Not Detected (Not Detect.); Coronavirus OC43 PCR Not Detected (Not Detect.); RSV PCR Detected (Not Detect.); Rhino/Enterovirus PCR Not Detected (Not Detect.); SARS-CoV-2 PCR Not Detected (Not Detect.)
[2025-01-19 07:55] LABS: Influenza A H1 PCR Not Detected (Not Detect.); Influenza A H1-2009 PCR Not Detected (Not Detect.); Influenza A H3 PCR Not Detected (Not Detect.)
== END 2025-01-18 09:56 | disposition home or self-care (01) ==
LOC: HO.LAB 09:55
PROVIDERS: Physician Assistant; PCP Internal Medicine
DX: J06.9 Acute upper respiratory infection, unspecified (principal); J01.00 Acute maxillary sinusitis, unspecified
CPT/HCPCS: 87633; 99212

== ENCOUNTER 2025-01-25 10:23 | Outpatient (AMB) | payer MEDICARE, SELFPAY ==
[2025-01-25 10:49] VITALS: BP 124/78; PULSE 82; TEMP 36.7; O2SAT 98
--- NOTE | 2025-01-25 10:49 | AM.OFFWIN_ITS ---
Intake Vital Signs 01/25/25 10:49 Height 5 ft 4 in BMI Reason not done Patient refused/unable BP 124/78 Blood Pressure Location Lt brachial Position Sitting Pulse 82 Pulse Source Pulse Oximeter Temp 98.0 F Temp Source Oral Pulse Oximetry (%) 98 Oxygen Delivery Method Room Air Intake Visit Reasons: ep ears are very clogged . Patient Tobacco Use Status: Former Tobacco user Allergies oxycodone (From PERCOCET) Allergy (Severe, Verified 01/25/25 10:51) HIVES hydrocodone (From VICODIN) Adverse Reaction (Severe, Verified 01/25/25 10:51) PASS OUT/VOMITING atorvastatin Adverse Reaction (Intermediate, Verified 01/25/25 10:51) myalgia rosuvastatin Adverse Reaction (Intermediate, Verified 01/25/25 10:51) myalgia Monistat 1 Allergy (Severe, Uncoded 12/19/24 13:07) Rash Suprep Bowel Prep Adverse Reaction (Severe, Uncoded 12/19/24 13:07) Nausea and Vomiting Medication List - Last Reconciled 01/25/25 by Nirali Browning PA-C amoxicillin-pot clavulanate 875-125 mg 1 tab PO BID 7 days atorvastatin 10 mg PO BEDTIME 90 days biotin 1,000 mg PO DAILY cetirizine 10 mg PO DAILY 30 days cyclosporine 0.05% drps ophthalmic (eye) galcanezumab-gnlm (Emgality Pen) 120 mg subcut .monthly 30 days hydrochlorothiazide 12.5 mg PO DAILY 90 days methenamine hippurate 1 g PO BID methylprednisolone PO PER PKG DIR for 6 days minoxidil 1.25 mg PO DAILY [wedge pillow As directed] Do you need a note to return to daycare/school/sports/work: No HPI HPI Comments History of Present Illness Details History - The patient is a 69-year-old female pr esenting with symptoms of ear blockage, cough, and congestion following a recent diagnosis of RSV. - Diagnosed with RSV over a week ago, no w has anosmia, ageusia, and diarrhea. - Reports severe ear blockage, tinnitus, and bilateral ear pain, with a sensation of talking in a tunnel. - denies shortness of breath or worsenin g of breathing. - Completed prednisone course, alleviati ng jaw pain but not ear symptoms; curr ently on Augmentin RX'd by her PCP. - Persistent cough and congestion. - She is using Flonase twice a day. Physical Exam General: Cooperative, healthy appearing, comfortable and no acute distress Orientation/consciousness: Patient oriented x3 Limitations: No limitations Head: Normal to inspection Ears: Hearing grossly normal bilaterally, external ears normal, EACs normal bilaterally, right TM with bulging, erythema and purulence, left tM with erythema Nose: Normal external nose present, Normal nares present and No nasal discharge present Face and sinus: Normal facial exam and Yes sinuses nontender Mouth: Normal oral and palatal mucosa present and moist mucous membranes Throat: Yes tonsils normal, Yes uvula midline. Posterior oropharynx erythema, no exudates Eyes: Appearance normal, both eyes and all related structures Neck: Normal visual inspection, full ROM Respiratory: Clear to auscultation bilaterally. Normal respiratory effort, able to speak in complete sentences, Actively coughing, no respiratory distress, not tachypneic, no tripod positioning and no use of accessory muscles Cardiovascular: Regular rate and rhythm. Normal S1 and S2 Skin: No rashes or lesions noted Neuro: Patient oriented x3 Extremities: Normal to inspection and Yes no clubbing, cyanosis or edema Review of Systems - Ears: Reports severe blockage, tinnitu s, and bilateral ear pain - Respiratory: Reports persistent cough and congestion; denies fever - Gastrointestinal: Reports diarrhea - Neurological: Reports anosmia and ageu fabrizio All systems reviewed and are unremarkable except as noted in HPI [facility] Medical History (Updated 01/25/25 @ 11:14 by Nirali Browning PA-C) Recurrent UTI Tinnitus Overactive bladder Obesity (BMI 30-39.9) GERD with esophagitis Personal history of COVID-19 PONV (postoperative nausea and vomiting) Impaired fasting glucose Pure hypercholesterolemia Benign essential hypertension GERD (gastroesophageal reflux disease) Dizziness Cataract Lumbar degenerative disc disease History of paroxysmal supraventricular tachycardia History of deep venous thrombosis (~2002) Migraine Mitral valve prolapse Surgical History History of esophagogastroduodenoscopy (EGD) History of colonoscopy (~06/28/15) History of surgery (~2002) History of surgery Family History Father Diabetes Hypertension Stroke Cardiovascular disease Mother Myocardial infarction Social History Housing: House Are you a primary care manager to a significant other at home: No Do you presently have visiting nurse or other home services: No Alcohol intake: current Alcohol intake frequency: a few times a week Patient Tobacco Use Status: Former Tobacco user e-Cigarette/Vaping Use: Never Used Second Hand Smoke Exposure: Yes service: No Current occupational status: retired Cognitive needs: No Hearing needs: No Vision needs: Yes Physical Exam Vital Signs: Last Vital Signs Temp 98.0 F 01/25/25 10:49 Pulse 82 01/25/25 10:49 BP 124/78 01/25/25 10:49 Pulse Ox 98 01/25/25 10:49 Oxygen Delivery Method Room Air 01/25/25 10:49 Assessment & Plan Assessment & Plan (1) Otitis media: Code(s): H66.90 - Otitis media, unspecified, unspecified ear Qualifiers: Otitis media type: suppurative Chronicity: acute Laterality: right Recurrence: non-recurrent Spontaneous tympanic membrane rupture: without spontaneous rupture Qualified Code(s): H66.001 - Acute suppurative otitis media without spontaneous rupture of ear drum, right ear Plan: Plan Patient was informed and verbally consented to the use of an ambient scribe for clinic note documentation during this visit. - VSS, pt well appearing and PE remarkable for OM right side - Augmentin prescribed for right ear infection; advised to continue Flonase and sent another solu-medrol taper for symptom management. - Persistent cough and congestion managed with Tessalon Perles; recommended neti pot and Flonase for sinus relief. - Advised fluid in ears could last for weeks after Augmentin completion. (2) RSV bronchitis: Code(s): J20.5 - Acute bronchitis due to respiratory syncytial virus Plan: as above Medications: New benzonatate 200 mg PO BEDTIME PRN 10 caps 0RF cough methylprednisolone PO PER PKG DIR for 6 days 21 ea 0RF Coding Level of Care Code Est Pt Level 3 (66323) Diagnoses Non-recurrent acute suppurative otitis media of right ear without spontaneous rupture of tympanic membrane H66.001 Otitis media type: suppurative Chronicity: acute Laterality: right Recurrence: non-recurrent Spontaneous tympanic membrane rupture: without spontaneous rupture RSV bronchitis J20.5
--- OUTSIDE RECORDS SUMMARY | 2025-01-25 12:16 | XMS_ITS | Patient Health Record ---
Author Organization [facility] Address [address] [place] [address] Care Team Providers Care Mechatronics Engineer Name Role Phone Bryon Ding MD Primary Care Provider Stephen Fonseca Unavailable [phone] Allergies Allergen (clinical drug ingredient) Drug/Non Drug [...] 1 kit as directed Oral ly as directed; Duration: 1 dose 04/25/2015 Active oxyBUTYnin Chloride 5 MG 1 tablet Orally Twice a day Active Problems Problem Type SNOMED Code ICD Code Onset Dates Problem Status W/U Status Risk Notes Problem Screening for malignant neoplasm of colon (552906834) Encounter for screening for malignant neoplasm of colon (Z12.11) Active confirmed Problem Irritable bowel syndrome with diarrhea (166270089) Irritable bowel syndrome with diarrhea (K58.0) Active confirmed Problem Screening for malignant neoplasm of rectum (714856482) Encounter for screening for malignant neoplasm of rectum (Z12.12) Active confirmed Problem Gastroesophageal reflux disease without esophagitis (054300873) Gastroesophageal reflux disease without esophagitis (K21.9) Active confirmed Problem Esophageal spasm (41764769) Esophageal spasm (K22.4) Active confirmed Plan Of Treatment Future Test Test Name Order Date UPPER GI ENDOSCOPY 04/25/2015 COLONOSCOPY 04/25/2015 Insurance Providers Payer Name Payer Address Payer Phone Subscriber Number Group Number Insured Name Patient Relationship to Insured Coverage Start Date Coverage End Date [facility] [address] [facility] [place] [phone] [id number] ELIA NG Self - patient is the insured Medical (General) History Medical History History ICD Code Denies PR,DM,CVA,Lung disease,renal dise ase Overactive bladder GERD--small HH on a Barium swallow UTI's IBS-irregular BM's--describes a negative Flex sig with me in the negative gallbladder ultrasounds and nor mal HIDA scan with CCK in 2009 Surgical History Surgery Date(Month/Year) Foot surgery x2 2002 Bladder suspension 1999
--- OUTSIDE RECORDS SUMMARY | 2025-01-25 12:16 | XMS_ITS | Clinical Summary ---
Author Organization [facility] Address [address] [address] Phone Care Team Providers Care Oil Paint Shader Name Role Phone Bryon Ding MD Primary Care Provider [phone] Allergies Active Allergy Reactions Criticality Noted Date [...] Not on file Insurance HMO [address] [place], [place] [address] [place] [address] [place] [address] [place] [address] Subscriber Plan / Payer (Ef fective 2020-Present) Name:Leila Finney Relation to Subscriber:Self Name:Leila Finney Payer ID:Not on file Type:HMO Address: [place] [id number] Care Teams Oil Paint Shader Relationship Specialty Start Date End Date Bryon Ding MD [address] [place] [address] [place] [address] PCP - General Internal Medicine 08/08/20 Additional Source Comments The information contained in this document represents components of the legal health record. It is not the complete legal health record.[facility]
--- OUTSIDE RECORDS SUMMARY | 2025-01-25 12:16 | XMS_ITS | Encounter Summary ---
Author Organization [facility] [place] [address] Care Team Providers Care Solar Sales Rep Name Role Phone Bryon Ding MD Primary Care Provider + [phone] Encounter Details Date Type Department Care Team (Late st Contact Info) Description 05/26/2024 Lab Requisition [facility] - Main Lab [address] [facility] [place] [id number] Jolene Bolivar NP [address] [facility] [address] [place], [place] [id number] Frequency of micturition Social History Tobacco Use [...] mirabilis(A ) ALAYNA 05/27/2024 10:54 AM EST [facility] Comment: Edited result: Previously reported as Proteus species on 05/26/2024 at 1104 EST. Other Urine specimen from urethra / Unknown 05/25/2024 05/26/2024 9:57 AM EST Narrative [facility] - 05/27/2024 10:54 AM EST Mixed normal skin carmen present Organism Antibiotic Method Susceptibility Proteus mirabilis Amoxicillin/Clavulanate ALAYNA <=2 ug/ml: Susceptible Proteus mirabilis Ampicillin/Sulbactam ALAYNA <=2 ug/ml: Susceptible Proteus mirabilis Piperacillin/Tazobactam ALAYNA <=4 ug/ml: Susceptible Proteus mirabilis Cefazolin (Urine) ALAYNA 4 ug/ml: Susceptible Proteus mirabilis Cefoxitin AALYNA <=4 ug/ml: Susceptible Proteus mirabilis Ceftazidime ALAYNA [...] ALAYNA >=320 ug/ml: Resistant us Jolene Bolivar SIGNALS COLLECTION TECHNICIAN LAB MICROBIOLOGY - GENERA L ORDERABLES Final Result [facility] [address] [place] [address], documented in this encounter Visit Diagnoses Diagnosis Frequency of micturition Urinary frequency documented in this encounter Care Teams Solar Sales Rep Relationship Specialty Start Date End Date Bryon Ding MD [address] [place] [address] [address] [place] PCP - General 11/27/09 documented as of this encounter
--- OUTSIDE RECORDS SUMMARY | 2025-01-25 12:16 | XMS_ITS | Encounter Summary ---
[facility] [place] [address] Care Team Providers Care Retail Salesworker Name Role Phone Bryon Ding MD Primary Care Provider + [phone] Encounter Details Date Type Department Care Team (Late st Contact Info) Description 09/02/2024 Lab Requisition [facility] - Main Lab [address] [facility] [place] [id number] Jolene Bolivar NP [address] [facility] [address] [place] [address] Urgency of urination Social History Tobacco Use Types Packs/Day Years Used Date Smoking Tobacco: Former Smokeless Tobacco: Never Alcohol Use Standard Drinks/Week Comments Not Currently 4 (1 standard drink = 0.6 oz pur e alcohol) Interpersonal Safety Answer Date Record ed Physical Abuse Unrecognized value 08/15/2024 Verbal Abuse Unrecognized value 08/15/2024 Comments Unknown Sex and Gender Information [...] Urine No growth 09/03/2024 7:23 AM EDT [facility] Urine Urine specimen from urethra / Unknown 09/02/2024 09/02/2024 1:27 PM EDT us Jolene Bolivar SPLUNK ARCHITECT LAB MICROBIOLOGY - GENERA L ORDERABLES Final Result [facility] [address] [place] [address], documented in this encounter Visit Diagnoses Diagnosis Urgency of urination documented in this encounter Care Teams Retail Salesworker Relationship Specialty Start Date End Date Bryon Ding MD [address] [place] [address] Dr [address] [place], [place] PCP - General 11/27/09 documented as of this encounter
--- OUTSIDE RECORDS SUMMARY | 2025-01-25 12:16 | XMS_ITS | Clinical Summary ---
Author Organization [address] Address [address] [place] [address] Phone Care Team Providers Care Asic Engineer Name Role Phone Bryon Ding MD Primary Care Provider [phone] Allergies Active Allergy Reactions Criticality Noted Date [...] esophagi tis 08/15/2024 DVT (deep venous thrombosis) ([facility]/HCC V24, CMS/H CC V28) 08/15/2024 HTN (hypertension) 08/15/2024 PONV (postoperative nausea and vomiting) 025 Surgical History Surgery Date Site/Laterality Comments VAGINAL DELIVERY PROCEDURE: [facility]IV[facility] ONLY; COMMENT: times 3 TUBAL [...] vomiting) DVT of proximal lower limb ( [facility] V24, [facility] V28) 1994 HTN (hypertension) 08/15/2024 [...] Health Maintenance Due Date Last Done Comments Colorectal Cancer Screening: Colonoscopy 1956 Cervical Cancer Screening: HPV 1977 Cholesterol Screening (Lipid Panel) 03/22/2022 Falls Risk Assessment 03/22/2022 Hepatitis C Screening 03/22/2022 Medicare Annual Wellness Visit 03/22/2022 Social Influencers of Health Screening 03/22/2022 Depression Screening 04/13/2024 Hypertension/CHF/CAD Annual BMP Blood Test 08/15/2024 COVID-19 Vaccine ( season) 2024 03/15/2023, 01/20/2022, 02/19/2021, Additional history exists Influenza Vaccine (#1) 2024 , 04/25/2022, 01/25/2021, Additional history exists Breast Cancer Screening 06/01/2026 06/01/19, 05/11/2024, 05/02/2023, Additional history exists RSV Immunization [...] this topic Medical Devices Implanted Type Area Oil Truck Driver Device Identifier Shelf Expiration Date Model / Serial / Lot Sling Mid-Urethral Lynx Sys Urinary Incontinence - Sn/A - [id number] Implanted:Qty: 1 on 08/15/2024 by Carolyn Phillips MD at [facility] Surgical Mesh Sling Implants N/A: Pelvis [employer] [facility] [id number] 11/12/2026 [id number] / N/A / [id number] Procedures Procedure Name Priority Date/Time Associated Diagnosis [...] mammography. Return to annual mammography. Mammo Location: [facility], [address] [place] [address], [address], . -------- FINAL REPORT -------- Dictated By: Yris Kwan Dictated Date: 06/01/2024 10:11 ET Assigned Physician: Yris Kwan Reviewed and Electronically Signed By: Yris Kwan Signed Date: 06/01/2024 10:29 ET Workstation ID: [id number] Transcribed By: Self Edit Transcribed Date: 06/01/2024 [...] mammography. Return to annual mammography. Mammo Location: [facility], [address] [place] [address], [address], . -------- FINAL REPORT -------- Dictated By: Yris Kwan Dictated Date: 06/01/2024 10:11 ET Assigned Physician: Yris Kwan Reviewed and Electronically Signed By: Yris Kwan Signed Date: 06/01/2024 10:29 ET Workstation ID: [id number] Transcribed By: Self Edit Transcribed Date: 06/01/2024 [...] spine and left hip were obtained using [employer] Discovery W (S/N [id number]). COMPARISON: None FINDINGS: L1-L4 BMD: 1.027 g/cm2 [...] lumbar spineand left hip were obtained using [employer] Discovery W (S/N [id number]). COMPARISON: None FINDINGS: L1-L4 BMD: 1.027 g/cm2 [...] Insurance [facility] Care Teams Asic Engineer Relationship Specialty Start Date End Date Bryon Ding MD [address] [place] [address] [address] [place], [place] PCP - General 11/27/09
--- OUTSIDE RECORDS SUMMARY | 2025-01-25 12:16 | XMS_ITS | Encounter Summary ---
[facility] [place] [address] Care Team Providers Care Electric Stop Installer Name Role Phone Bryon Ding MD Primary Care Provider + [phone] Encounter Details Date Type Department Care Team (Late st Contact Info) Description 08/30/2024 Lab Requisition [facility] - Main Lab [address] [facility] [place] [phone] Carolyn Phillips MD [address] [facility] [address] [place] [address] Pyuria Social History Tobacco Use Types Packs/Day [...] Final Result [facility] [address] [place] [address], documented in this encounter Visit Diagnoses Diagnosis Pyuria Other nonspecific finding on examination of urine documented in this encounter Care Teams Electric Stop Installer Relationship Specialty Start Date End Date Bryon Ding MD [address] [place] [address] Dr [address] [place], [place] PCP - General 11/27/09 documented as of this encounter
--- OUTSIDE RECORDS SUMMARY | 2025-01-25 12:16 | XMS_ITS | Patient Health Record ---
Author [facility] Address [address] [place] [address] Care Team Providers Care Glassware Maker Name Role Phone Christina Ding MDh Primary Care Provider Unava ilable Black, Taylor Unavailable [phone] Allergies Allergen (clinical drug ingredient) Drug/Non Drug [...] Problem Acquired hammer toe of right foot (344647154285 9105) Other hammer toe(s) (acquired), right foot (M20.41) Active confirmed Problem Acquired hammer toe of left foot (124116513709 9103) Other hammer toe(s) (acquired), left foot (M20.42) Active confirmed Problem Plantar nerve lesion (861426406) Lesion of plantar nerve, 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) Active confirmed Problem Plantar nerve lesion (015926940) Lesion of plantar nerve, left lower limb (G57.62) Active confirmed Problem PlantarFlexion o f metatarsal of right foot (M21.6X1) Active confirmed Problem PlantarFlexion o f metatarsal of left foot (M21.6X2) Active confirmed Plan Of Treatment No Information Insurance Providers Payer Name Payer Address Payer Phone Subscriber Number Group Number Insured Name Patient Relationship to Insured Coverage Start Date Coverage End Date [facility] [address] [place] [address] [id number] Leila Finney Self - patient is the insured Medical (General) History Medical History History ICD Code Back,Hip,and Knee pain Cataracts Headaches/Migraines Measles Mumps Chicken pox Joint implants/screws Reflux Sciatica Surgical History Surgery Date(Month/Year) back surgery achilles tendon surgery colonoscopy wisdom teeth extraction
== END 2025-01-25 11:28 | disposition home or self-care (01) ==
PROVIDERS: PCP Internal Medicine; Visit Provider Physician Assistant
DX: H66.001 Acute suppurative otitis media without spontaneous rupture of ear drum, right ear (principal); J20.5 Acute bronchitis due to respiratory syncytial virus

== ENCOUNTER → 2025-01-25 10:23 | Outpatient (BNVA) | payer MEDICARE, SELFPAY | PROVIDERS: PCP Internal Medicine; Visit Provider Physician Assistant | DX: H66.001 Acute suppurative otitis media without spontaneous rupture of ear drum, right ear (principal); J20.5 Acute bronchitis due to respiratory syncytial virus | CPT/HCPCS: 99212 ==

== ENCOUNTER 2025-02-07 08:23 | Outpatient (AMB) | payer MEDICARE, SELFPAY ==
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
--- OUTSIDE RECORDS SUMMARY | 2025-02-07 09:00 | XMS_ITS | Encounter Summary ---
[facility] [place] [address] Care Team Providers Care Plan Coordinator Name Role Phone Bryon Ding MD Primary Care Provider + [phone] Encounter Details Date Type Department Care Team (Late st Contact Info) Description 09/02/2024 Lab Requisition [facility] - Main Lab [address] [facility] [place] [phone] Jolene Bolivar NP [address] [facility] [address] [place] [address] Urgency of urination Social History Tobacco Use [...] Urine No growth 09/03/2024 7:23 AM EDT [facility] Urine Urine specimen from urethra / Unknown 09/02/2024 09/02/2024 1:27 PM EDT us Jolene Bolivar PROPERTY MANAGEMENT INTERN LAB MICROBIOLOGY - GENERA L ORDERABLES Final Result [facility] [address] [place] [address], documented in this encounter Visit Diagnoses Diagnosis Urgency of urination documented in this encounter Care Teams Plan Coordinator Relationship Specialty Start Date End Date Bryon Ding MD [address] [place] [address] Dr [address] [place], [place] PCP - General 11/27/09 documented as of this encounter
--- OUTSIDE RECORDS SUMMARY | 2025-02-07 09:00 | XMS_ITS | Encounter Summary ---
[facility] [place] [address] Care Team Providers Care Body Engineer Name Role Phone Bryon Ding MD Primary Care Provider + [phone] Encounter Details Date Type Department Care Team (Late st Contact Info) Description 08/30/2024 Lab Requisition [facility] - Main Lab [address] [facility] [place] [phone] Carolyn Phillips MD [address] [facility] [address] [place] [address] Pyuria Social History Tobacco Use Types Packs/Day [...] Final Result [facility] [address] [place] [address], documented in this encounter Visit Diagnoses Diagnosis Pyuria Other nonspecific finding on examination of urine documented in this encounter Care Teams Body Engineer Relationship Specialty Start Date End Date Bryon Ding MD [address] [place] [address] Dr [address] [place], [place] PCP - General 11/27/09 documented as of this encounter
--- OUTSIDE RECORDS SUMMARY | 2025-02-07 09:00 | XMS_ITS | Encounter Summary ---
Author Organization [facility] [place] [address] Care Team Providers Care Floor Tiling Professional Name Role Phone Bryon Ding MD Primary Care Provider + [phone] Encounter Details Date Type Department Care Team (Late st Contact Info) Description 05/26/2024 Lab Requisition [facility] - Main Lab 299 [facility] [place] [phone] Jolene Bolivar NP [address] [facility] [address] [place], [place] [id number] Frequency of micturition Social History Tobacco Use [...] mirabilis(A ) ALAYNA 05/27/2024 10:54 AM EST [facility] Comment: Edited result: Previously reported as Proteus species on 05/26/2024 at 1104 EST. Other Urine specimen from urethra / Unknown 05/25/2024 05/26/2024 9:57 AM EST Narrative [facility] - 05/27/2024 10:54 AM [...] ALAYNA >=320 ug/ml: Resistant us Jolene Bolivar CPA [facility] LAB MICROBIOLOGY - GENERA L ORDERABLES Final Result [facility] [address] [place] [address], documented in this encounter Visit Diagnoses Diagnosis Frequency of micturition Urinary frequency documented in this encounter Care Teams Floor Tiling Professional Relationship Specialty Start Date End Date Bryon Ding MD [address] [place] [address] Dr [address] [place] PCP - General 11/27/09 documented as of this encounter
--- OUTSIDE RECORDS SUMMARY | 2025-02-07 09:00 | XMS_ITS | Clinical Summary ---
Author Organization [facility] Address [address] [address] Phone Care Team Providers Care Drafter Seismograph Name Role Phone Bryon Ding MD Primary Care Provider [phone] Allergies Active Allergy Reactions Criticality Noted Date [...] Not on file Insurance HMO [address] [place] [id number] [place] [address] [place] [address] [place] [address] Subscriber Plan / Payer (Ef fective 2020-Present) Name:Leila Finney Relation to Subscriber:Self Name:Leila Finney Payer ID:Not on file Type:HMO Address: [place] [id number] Care Teams Drafter Seismograph Relationship Specialty Start Date End Date Bryon Ding MD [address] [place] [address] [place] [address] PCP - General Internal Medicine 08/08/20 Additional Source Comments The information contained in this document represents components of the legal health record. It is not the complete legal health record.[facility]
--- OUTSIDE RECORDS SUMMARY | 2025-02-07 09:00 | XMS_ITS | Patient Health Record ---
Author [facility] Address [address] [place] [address] Care Team Providers Care Web Development Intern Name Role Phone Christina Ding MDh Primary Care Provider Unava ilable Black, Taylor Unavailable [phone] Allergies Allergen (clinical drug ingredient) Drug/Non Drug [...] Problem Acquired hammer toe of right foot (435267500571 9105) Other hammer toe(s) (acquired), right foot (M20.41) Active confirmed Problem Acquired hammer toe of left foot (267938429750 9103) Other hammer toe(s) (acquired), left foot (M20.42) Active confirmed Problem Plantar nerve lesion (283523024) Lesion of plantar nerve, 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) Active confirmed Problem Plantar nerve lesion (373550040) Lesion of plantar nerve, left lower limb (G57.62) Active confirmed Problem PlantarFlexion o f metatarsal of right foot (M21.6X1) Active confirmed Problem PlantarFlexion o f metatarsal of left foot (M21.6X2) Active confirmed Plan Of Treatment No Information Insurance Providers Payer Name Payer Address Payer Phone Subscriber Number Group Number Insured Name Patient Relationship to Insured Coverage Start Date Coverage End Date [facility] [address] [place] [address] [id number] Leila Finney Self - patient is the insured Medical (General) History Medical History History ICD Code Back,Hip,and Knee pain Cataracts Headaches/Migraines Measles Mumps Chicken pox Joint implants/screws Reflux Sciatica Surgical History Surgery Date(Month/Year) back surgery achilles tendon surgery colonoscopy wisdom teeth extraction
--- OUTSIDE RECORDS SUMMARY | 2025-02-07 09:00 | XMS_ITS | Clinical Summary ---
Author Organization [address] Address [address] [place] [address] Phone Care Team Providers Care Apartment Maintenance Worker Name Role Phone Bryon Ding MD Primary Care Provider [phone] Allergies Active Allergy Reactions Criticality Noted Date [...] esophagi tis 08/15/2024 DVT (deep venous thrombosis) ([facility]/HCC V24, CMS/H CC V28) 08/15/2024 HTN (hypertension) 08/15/2024 PONV (postoperative nausea and vomiting) 025 Surgical History Surgery Date Site/Laterality Comments VAGINAL DELIVERY PROCEDURE: [place] VAGINAL DELIVERY ONLY; COMMENT: times 3 TUBAL [...] vomiting) DVT of proximal lower limb ( [facility] V24, [facility] V28) 1994 HTN (hypertension) 08/15/2024 [...] this topic Medical Devices Implanted Type Area Plant Guard Device Identifier Shelf Expiration Date Model / Serial / Lot Sling Mid-Urethral Lynx Sys Urinary Incontinence - Sn/A - [id number] Implanted:Qty: 1 on 08/15/2024 by Carolyn Phillips MD at [facility] Surgical Mesh Sling Implants N/A: Pelvis [facility] [id number] 11/12/2026 [id number] / N/A / [id number] Procedures Procedure Name Priority Date/Time Associated Diagnosis [...] mammography. Return to annual mammography. Mammo Location: [facility], [address] [place] [address], [address], . -------- FINAL REPORT -------- Dictated By: Yris Kwan Dictated Date: 06/01/2024 10:11 ET Assigned Physician: Yris Kwan Reviewed and Electronically Signed By: Yris Kwan Signed Date: 06/01/2024 10:29 ET Workstation ID: [id number] Transcribed By: Self Edit Transcribed Date: 06/01/2024 [...] mammography. Return to annual mammography. Mammo Location: [facility], [address] [place] [address], [address], . -------- FINAL REPORT -------- Dictated By: Yris Kwan Dictated Date: 06/01/2024 10:11 ET Assigned Physician: Yris Kwan Reviewed and Electronically Signed By: Yris Kwan Signed Date: 06/01/2024 10:29 ET Workstation ID: [id number] Transcribed By: Self Edit Transcribed Date: 06/01/2024 [...] spine and left hip were obtained using [employer] W (S/N [id number]). COMPARISON: None FINDINGS: L1-L4 BMD: 1.027 g/cm2 [...] lumbar spineand left hip were obtained using [employer] W (S/N [id number]). COMPARISON: None FINDINGS: L1-L4 BMD: 1.027 g/cm2 [...] Insurance [employer] Care Teams Apartment Maintenance Worker Relationship Specialty Start Date End Date Bryon Ding MD [address] [place] [address] [address] [place], [place] PCP - General 11/27/09
--- OUTSIDE RECORDS SUMMARY | 2025-02-07 09:00 | XMS_ITS | Patient Health Record ---
Author Organization [facility] Address [address] [place] [address] Care Team Providers Care Flight Coordinator Name Role Phone Bryon Ding MD Primary Care Provider Stephen Fonseca [phone] Allergies Allergen (clinical drug ingredient) Drug/Non Drug [...] Problem Screening for malignant neoplasm of colon (181370926) Encounter for screening for malignant neoplasm of colon (Z12.11) Active confirmed Problem Irritable bowel syndrome with diarrhea (818094750) Irritable bowel syndrome with diarrhea (K58.0) Active confirmed Problem Screening for malignant neoplasm of rectum (145617055) Encounter for screening for malignant neoplasm of rectum (Z12.12) Active confirmed Problem Gastroesophageal reflux disease without esophagitis (221691562) Gastroesophageal reflux disease without esophagitis (K21.9) Active confirmed Problem Esophageal spasm (46068645) Esophageal spasm (K22.4) Active confirmed Plan Of Treatment Future Test Test Name Order Date UPPER GI ENDOSCOPY 04/25/2015 COLONOSCOPY 04/25/2015 Insurance Providers Payer Name Payer Address Payer Phone Subscriber Number Group Number Insured Name Patient Relationship to Insured Coverage Start Date Coverage End Date [facility] [address] [facility] [place] [phone] [id number] ELIA NG Self - patient is the insured Medical (General) History Medical History History ICD Code Denies DE,DM,CVA,Lung disease,renal dise ase Overactive bladder GERD--small HH on a Barium swallow UTI's IBS-irregular BM's--describes a negative Flex sig with me in the negative gallbladder ultrasounds and nor mal HIDA scan with [facility] in 2009 Surgical History Surgery Date(Month/Year) Foot surgery x2 2002 Bladder suspension 1999
== END 2025-02-07 08:41 | disposition home or self-care (01) ==
LOC: HO.HSM 08:24
PROVIDERS: PCP Internal Medicine; Visit Provider Registered Nurse
DX: G43.011 Migraine without aura, intractable, with status migrainosus (principal)
CPT/HCPCS: 99214

== ENCOUNTER → 2025-02-07 08:23 | Outpatient (BNVA) | payer MEDICARE, SELFPAY | PROVIDERS: PCP Internal Medicine; Visit Provider Registered Nurse | DX: G43.011 Migraine without aura, intractable, with status migrainosus (principal) | CPT/HCPCS: 99212 ==

== ENCOUNTER → 2025-03-06 14:07 | Outpatient (AMB) | payer MEDICARE, SELFPAY ==
[2025-03-06 14:10] VITALS: BP 120/76; PULSE 80
--- NOTE | 2025-03-06 14:10 | A.OFFVIS_ITS ---
Vital Signs 03/06/25 14:10 Height 5 ft 4 in BMI Reason not done Patient refused/unable BP 120/76 Blood Pressure Location Lt brachial Position Sitting Pulse 80 Intake Visit Reasons: dysphagia Intake Note: Follow-up chest and gerd again Rules Examiner Required: No Allergies oxycodone (From PERCOCET) Allergy (Severe, Verified 02/07/25 08:33) HIVES hydrocodone (From VICODIN) Adverse Reaction (Severe, Verified 02/07/25 08:33) PASS OUT/VOMITING atorvastatin Adverse Reaction (Intermediate, Verified 02/07/25 08:33) myalgia rosuvastatin Adverse Reaction (Intermediate, Verified 02/07/25 08:33) myalgia Monistat 1 Allergy (Severe, Uncoded 02/07/25 08:33) Rash Suprep Bowel Prep Adverse Reaction (Severe, Uncoded 02/07/25 08:33) Nausea and Vomiting HPI Comments Details: This is a 66-year-old female with past medical history of hypertension, migraines, history of DVT, hyperlipidemia, GERD, who presents to the office for follow up of chest pain 02/18/22: Patient states that for the past 3-4 years, she has been experiencing intermittent chest pain that has been attributed to GERD. She had an upper GI series in 2019 that showed free reflux up to thoracic inlet which cleared slowly. Since then, she has been on a PPI. However, last month, she had an episode that was different from her previous episodes. Describes this as severe pain in her chest that radiated to her sides and upper jaw associated with shortness of breath and diaphoresis. This lasted around 6 hours before she started to feel better. She is unable to identify trigger for this, this occurred at nighttime. She was also seen by her primary care provider for the same and in office EKG was normal. Previous cardiac workup includes a stress test in 2019 which was normal, as well as an echocardiogram which also showed normal ejection fraction without any focal wall motion abnormalities. Of note, also mentions intermittent difficulty with swallowing. Has a sensation of food getting stuck in her upper throat. Sometimes happens with fluids as well. Episodes are becoming more frequent. Has not had any distinct food obstruction episodes, or needed to seek medical attention. Denies any unintentional weight loss, nausea, vomiting or regurgitation. Recent endoscopy: Last colonoscopy was in 2016 (Dr. Burk) excellent prep. No polyps. Sigmoid diverticulosis and internal hemorrhoids. 06/24/22: Symptoms more or less unchanged from before. Most of her symptoms are at nighttime, when she is laying to sleep. Has not been tolerated wedge pillow. Despite taking PPI in the evening, had to add famotidine. Results reviewed including barium swallow, as well as cardiac evaluation (stress test and echocardiogram). 10/02/22: EGD * Esophagus:? Normal mucosa noted in the entire esophagus. The Z line was at 40 cm. No overt narrowing or stricture noted on endoscopic evaluation. Middle and lower esophagus forceps biopsies were obtained to rule out eosinophilic esophagitis. * Stomach:? Normal mucosa was noted in the stomach. * Duodenum:? Normal mucosa was noted in the whole of the examined duodenum. Additional intervention:??A soft tip Savary wire was introduced through the biopsy channel and advanced to the antrum.? The gastroscope was then backed out through the mouth.? A Savary Brandin bougie was advanced over the guidewire and the esophagus was incrementally dilated from 18 mm to 19 mm.? There was significant resistance at 19 mm.? On relook with the endoscope, a superficial tear with heme was noted as 14 cm representing successful dilatation at the level of cricopharyngeus. Path: A.? Gastroesophageal junction, biopsy:? Squamous mucosa with focal intraepithelial neutrophils consistent with active esophagitis; no columnar mucosa present; no evidence of eosinophilic esophagitis.? B.? Esophagus, middle, biopsy:? Squamous mucosa with no specific change; no columnar mucosa present; no evidence of eosinophilic esophagitis. 10/13/22: Reports resolution of sensation of food getting stuck in upper chest and discomfort. Has not had any further difficulty with food since the dilation. Continues on pantoprazole 40 once daily. ? 03/06/25: Here for follow up. Reports dysphagia has returned. Has pills that get stuck occasionally as well as certain solid foods. Looking to get EGD rebooked. Pt also due for colo for screening in early 2025 so will both EGD/colo together. [facility] Medical History (Updated 02/12/25 @ 21:45 by Bryon Ding MD) Recurrent UTI Tinnitus Overactive bladder Obesity (BMI 30-39.9) GERD with esophagitis Personal history of COVID-19 PONV (postoperative nausea and vomiting) Impaired fasting glucose Pure hypercholesterolemia Benign essential hypertension GERD (gastroesophageal reflux disease) Dizziness Cataract Lumbar degenerative disc disease History of paroxysmal supraventricular tachycardia History of deep venous thrombosis (~2002) Migraine Mitral valve prolapse Surgical History History of esophagogastroduodenoscopy (EGD) History of colonoscopy (~06/28/15) History of surgery (~2002) History of surgery Family History Father Diabetes Hypertension Stroke Cardiovascular disease Mother Myocardial infarction Social History Housing: House Are you a primary overnight caregiver to a significant other at home: No Do you presently have visiting nurse or other home services: No Alcohol intake: current Alcohol intake frequency: a few times a week Patient Tobacco Use Status: Former Tobacco user e-Cigarette/Vaping Use: Never Used Second Hand Smoke Exposure: Yes service: No Current occupational status: retired Cognitive needs: No Hearing needs: No Vision needs: Yes Review of Systems Const All systems reviewed & are unremarkable except as noted in HPI and below Physical Exam Exam Exam: No apparent distress Nonicteric Abdomen soft, nondistended Alert and oriented x3, normal gait Vital Signs: Last Vital Signs Pulse 80 03/06/25 14:10 BP 120/76 03/06/25 14:10 Assessment & Plan Assessment & Plan (1) Dysphagia: Code(s): R13.10 - Dysphagia, unspecified Category: Medical (2) Colon cancer screening: Code(s): Z12.11 - Encounter for screening for malignant neoplasm of colon Category: Medical Plan Pt with hx of cricopharyngeal narrowing s/p EGD with dil (19 mm) in 2022. Now with sx recurrence. Since pt is also due for screening colo, will book this as double. Pt reports significant migraine headaches when shes NPO. Advised to take scrambled eggs only for breakfast WITHOUT toast/sami muffin etc the day before procedure and then cont CLD remaining day. Can take prophylactic ibuprofen to further mitigate a migraine. Miralax prep Rxed as per pt preference. Instructions reviewed and handout provided. Follow up after scopes as needed. Orders: Referrals GI Procedure Notification R13.10 - Dysphagia, unspecified, Z12.11 - Encounter for screening for malignant neoplasm of colon Medications: New polyethylene glycol 3350 (Miralax) mix in 64 oz of gatorade for colonoscopy prep 238 grams PO ONCE 238 grams 0RF bisacodyl Take at noon time, 1 day before colonoscopy 10 mg (2 x 5 mg) PO ONCE 2 tabs 0RF 1 day Coding Level of Care Code Est Pt Level 4 (41249) Diagnoses Dysphagia R13.10 Colon cancer screening Z12.11
--- OUTSIDE RECORDS SUMMARY | 2025-03-06 19:06 | XMS_ITS | Encounter Summary ---
Author Organization [facility] [place] [address] Care Team Providers Care Event Specialist Food Demonstrator Name Role Phone Bryon Ding MD Primary Care Provider + [phone] Encounter Details Date Type Department Care Team (Late st Contact Info) Description 05/26/2024 Lab Requisition [facility] - Main Lab 299 [facility] [place] [phone] Jolene Bolivar NP [address] [facility] [address] [place], [place] [id number] Frequency of micturition Social History Tobacco Use [...] mirabilis(A ) ALAYNA 05/27/2024 10:54 AM EST [facility] Comment: Edited result: Previously reported as Proteus species on 05/26/2024 at 1104 EST. Other Urine specimen from urethra / Unknown 05/25/2024 05/26/2024 9:57 AM EST Narrative [facility] - 05/27/2024 10:54 AM EST [...] ALAYNA >=320 ug/ml: Resistant us Jolene Bolivar MILITARY EXCHANGE WIRELESS MANAGER LAB MICROBIOLOGY - GENERA L ORDERABLES Final Result [facility] [address] [place] [address], documented in this encounter Visit Diagnoses Diagnosis Frequency of micturition Urinary frequency documented in this encounter Care Teams Event Specialist Food Demonstrator Relationship Specialty Start Date End Date Bryon Ding MD [address] [place] [address] Dr [address] PARAG Jensen PCP - General 11/27/09 documented as of this encounter
--- OUTSIDE RECORDS SUMMARY | 2025-03-06 19:06 | XMS_ITS | Encounter Summary ---
[facility] Address [address] [place] [address] Care Team Providers Care Pilot Plant Research Technician Name Role Phone Bryon Ding MD Primary Care Provider + [phone] Encounter Details Date Type Department Care Team (Late st Contact Info) Description 09/02/2024 Lab Requisition [facility] - Main Lab [address] [facility] [place] [phone] Jolene Bolivar NP 3640 [facility] [address] [place] [address] Urgency of urination Social History Tobacco Use [...] Urine No growth 09/03/2024 7:23 AM EDT [facility] Urine Urine specimen from urethra / Unknown 09/02/2024 09/02/2024 1:27 PM EDT us Jolene Bolivar ELECTRO MECHANICAL DESIGNER LAB MICROBIOLOGY - GENERA L ORDERABLES Final Result [facility] [address] [place] [address], documented in this encounter Visit Diagnoses Diagnosis Urgency of urination documented in this encounter Care Teams Pilot Plant Research Technician Relationship Specialty Start Date End Date Bryon Ding MD [address] [place] [address] Dr [address] [place], [place] PCP - General 11/27/09 documented as of this encounter
--- OUTSIDE RECORDS SUMMARY | 2025-03-06 19:06 | XMS_ITS | Encounter Summary ---
Author [facility] [place] [address] Care Team Providers Care Orthodontist Small Business Owner Name Role Phone Bryon Ding MD Primary Care Provider + [phone] Encounter Details Date Type Department Care Team (Late st Contact Info) Description 03/02/2025 Lab Requisition [facility] - Main Lab 299 [facility] [place] [phone] Jolene Bolivar NP 3640 [facility] [address] [place], [place] [phone] Frequency of micturition Social History Tobacco Use [...] Comments BACTERIAL IDENTIFICATION AND SUSCEPTIBILITY, AEROBIC Routine 03/01/2025 12:00 AM EST Frequency of micturition documented in this encounter Results * (ABNORMAL) Baterial identification and susceptibility, aerobic (03/01/2025 12:00 AM EST) Culture, Bacterial ID and Sensitivity Proteus mirabilis(A) ALAYNA 03/06/2025 10:00 AM EST [facility] Comment: The organism value for this result has been updated. These results have been appended to the previously preliminary verified report. This is an edited result. Previous organism was Gram negative bacilli on 03/03/2025 at 0856 EST. Edited result: Previously reported as Proteus species on 03/05/2025 at 1155 EST. Culture, Bacterial ID and Sensitivity Enterococcus faecalis(A) ALAYNA 03/06/2025 10:00 AM EST [facility] Comment: The organism value for this result has been updated. These results have been appended to the previously preliminary verified report. Edited result: Previously reported as Gram Positive Cocci on 03/04/2025 at 0846 EST. This is an edited result. Previous organism was Enterococcus species on 03/04/2025 at 1429 EST. Culture, Bacterial ID and Sensitivity Staphylococcus haemolyticus(A) ALAYNA 03/06/2025 10:00 AM EST [facility] Comment: The organism value for this result has been updated. These results have been appended to the previously preliminary verified report. Urine Urine specimen from urethra / Unknown 03/01/2025 03/02/2025 10:44 AM EST Narrative Organism Antibiotic Method Susceptibility Proteus mirabilis Amoxicillin/Clavulanate [...] Nitrofurantoin ALAYNA 128 ug/ml: Resistant Proteus mirabilis Trimethoprim/Sulfame thoxazo le ALAYNA <=20 ug/ml: Susceptible Enterococcus faecalis Benzylpenicillin ALAYNA 2 ug/ml: Susceptible Enterococcus faecalis Ampicillin ALAYNA <=2 ug/ml: Susceptible Enterococcus faecalis Ciprofloxacin ALAYNA <=0.5 ug/ml: Susceptible Enterococcus faecalis Levofloxacin ALAYNA 1 ug/ml: Susceptible Enterococcus faecalis Linezolid ALAYNA 2 ug/ml: Susceptible Enterococcus faecalis Vancomycin ALAYNA 1 ug/ml: Susceptible Enterococcus faecalis Tetracycline ALAYNA <=1 ug/ml: Susceptible Enterococcus faecalis Nitrofurantoin ALAYNA <=16 ug/ml: Susceptible Staphylococcus haemolyticus Benzylpenicillin ALAYNA >=0.5 ug/ml: Resistant Staphylococcus haemolyticus Oxacillin ALAYNA >=4 ug/ml: Resistant Staphylococcus haemolyticus Gentamicin ALAYNA <=0.5 ug/ml: Susceptible Staphylococcus haemolyticus Ciprofloxacin ALAYNA <=0.5 ug/ml: Susceptible Staphylococcus haemolyticus Levofloxacin ALAYNA <=0.12 ug/ml: Susceptible Staphylococcus haemolyticus Linezolid ALAYNA 2 ug/ml: Susceptible Staphylococcus haemolyticus Vancomycin ALAYNA <=0.5 ug/ml: Susceptible Staphylococcus haemolyticus Tetracycline ALAYNA <=1 ug/ml: Susceptible Staphylococcus haemolyticus Nitrofurantoin ALAYNA <=16 ug/ml: Susceptible Staphylococcus haemolyticus Rifampin ALAYNA <=0.5 ug/ml: Susceptible us Jolene Bolivar CABLE REPAIRER LAB MICROBIOLOGY - GENERA L ORDERABLES Final Result [facility] [address] [place] [address], documented in this encounter Visit Diagnoses Diagnosis Frequency of micturition Urinary frequency documented in this encounter Care Teams Orthodontist Small Business Owner Relationship Specialty Start Date End Date Bryon Ding MD [address] [place] [address] [place] [facility] PARAG Jensen PCP - General 11/27/09 documented as of this encounter
--- OUTSIDE RECORDS SUMMARY | 2025-03-06 19:06 | XMS_ITS | Encounter Summary ---
Author Organization [facility] [place] [address] Care Team Providers Care Computer Service Technician Name Role Phone Bryon Ding MD Primary Care Provider + [phone] Encounter Details Date Type Department Care Team (Late st Contact Info) Description 08/30/2024 Lab Requisition [facility] - Main Lab 299 [facility] [place] [phone] Carolyn Phillips MD 3640 [facility] [address] [place] [address] Pyuria Social History Tobacco Use Types Packs/Day [...] if clinically indicated. 08/31/2024 8:59 AM EDT [facility] Other Urine specimen from urethra / Unknown 08/29/2024 08/30/2024 10:04 AM EDT us Carolyn Phillips MD LAB MICROBIOLOGY - G ENERAL ORDERABLES Final Result [facility] [address] [place] [address], documented in this encounter Visit Diagnoses Diagnosis Pyuria Other nonspecific finding on examination of urine documented in this encounter Care Teams Computer Service Technician Relationship Specialty Start Date End Date Bryon Ding MD [address] [place] [address] Dr [address] [place], [place] PCP - General 11/27/09 documented as of this encounter
--- OUTSIDE RECORDS SUMMARY | 2025-03-06 19:06 | XMS_ITS | Clinical Summary ---
Author Organization [facility] Address [address] [address] Phone Care Team Providers Care Gallery Host Name Role Phone Bryon Ding MD Primary Care Provider [phone] Allergies Active Allergy Reactions Criticality Noted Date [...] Not on file Insurance HMO [address] [place], [place] [address] [place], [place] [address] Member Subscriber Plan / Payer (Ef fective 2020-Present) Name:Leila Finney Relation to Subscriber:Self Name:Leila Finney Payer ID:Not on file Type:O Address: [place] [id number] Care Teams Gallery Host Relationship Specialty Start Date End Date Bryon Ding MD [address] [place] [address] [place] [address] PCP - General Internal Medicine 08/08/20 Additional Source Comments The information contained in this document represents components of the legal health record. It is not the complete legal health record.[facility]
--- OUTSIDE RECORDS SUMMARY | 2025-03-06 19:06 | XMS_ITS | Clinical Summary ---
Author Organization [address] Address [address] [place] [address] Phone Care Team Providers Care Railroad Crossing Protection Maintainer Name Role Phone Bryon Ding MD Primary Care Provider [phone] Allergies Active Allergy Reactions Criticality Noted Date [...] esophagi tis 08/15/2024 DVT (deep venous thrombosis) ([facility] V24, [facility] V28) 08/15/2024 HTN (hypertension) 08/15/2024 PONV (postoperative nausea and vomiting) 025 Encounters Date Type Department Care Team Description 03/02/2025 Lab Requisition [facility] - Main Lab 299 [facility] [place] [address] Jolene Bolivar NP Frequency of micturition from Last 3 Months Surgical History Surgery Date Site/Laterality Comments VAGINAL [...] vomiting) DVT of proximal lower limb ( [facility] V24, [facility] V28) 1994 HTN (hypertension) 08/15/2024 Family [...] this topic Medical Devices Implanted Type Area Optical Instrument Specialist Device Identifier Shelf Expiration Date Model / Serial / Lot Sling Mid-Urethral Lynx Sys Urinary Incontinence - Sn/A - [id number] Implanted:Qty: 1 on 08/15/2024 by Carolyn Phillips MD at [facility] Surgical Mesh Sling Implants N/A: Pelvis [employer] [id number] 11/12/2026 [id number] / N/A / [id number] Procedures Procedure Name Priority Date/Time Associated Diagnosis Comments BACTERIAL IDENTIFICATION AND SUSCEPTIBILITY, AEROBIC Routine 03/01/2025 12:00 AM EST Frequency of micturition MG MAMMO DIAGNOSTIC ADDL VIEWS RIGHT Routine 06/01/2024 10:03 AM EST Abnormal mammogram DXA BONE DENSITY STUDY 1+ SITS AXIAL SKEL Routine 04/30/2023 10:16 AM EST Encounter for gynecological examination (general) (routine) without abnormal findings from Last 3 Months or Most Recently Relevant to Health Maintenance Results * (ABNORMAL) Baterial identification and susceptibility, aerobic (03/01/2025 12:00 AM EST) Culture, Bacterial ID and Sensitivity Proteus mirabilis(A) ALAYNA 03/06/2025 10:00 AM EST [facility] Comment: The organism value for this result has been updated. These results have been appended to the previously preliminary verified report. This is an edited result. Previous organism was Gram negative bacilli on 03/03/2025 at 0856 EST. Edited result: Previously reported as Proteus species on 03/05/2025 at 1155 EST. Culture, Bacterial ID and Sensitivity Enterococcus faecalis(A) ALAYNA 03/06/2025 10:00 AM EST [facility] Comment: The organism value for this result has been updated. These results have been appended to the previously preliminary verified report. Edited result: Previously reported as Gram Positive Cocci on 03/04/2025 at 0846 EST. This is an edited result. Previous organism was Enterococcus species on 03/04/2025 at 1429 EST. Culture, Bacterial ID and Sensitivity Staphylococcus haemolyticus(A) ALAYNA 03/06/2025 10:00 AM EST [facility] Comment: The organism value for this [...] ALAYNA >=4 ug/ml: Resistant Staphylococcus haemolyticus Gentamicin AALYNA <=0.5 ug/ml: Susceptible Staphylococcus haemolyticus Ciprofloxacin ALAYNA <=0.5 ug/ml: Susceptible Staphylococcus haemolyticus Levofloxacin ALAYNA <=0.12 ug/ml: Susceptible Staphylococcus haemolyticus Linezolid ALAYNA 2 ug/ml: Susceptible Staphylococcus haemolyticus Vancomycin ALAYNA <=0.5 ug/ml: Susceptible Staphylococcus haemolyticus Tetracycline ALAYNA <=1 ug/ml: Susceptible Staphylococcus haemolyticus Nitrofurantoin ALAYNA <=16 ug/ml: Susceptible Staphylococcus haemolyticus Rifampin ALAYNA <=0.5 ug/ml: Susceptible us Jolene Bolivar NP LAB MICROBIOLOGY - GENERA L ORDERABLES Final Result [facility]) [facility] [address] [place] [address], * MG Mammo Diagnostic Addl Views Right (06/01/2024 10:03 AM EST) Anatomical Region Laterality Modality Breast Right Mammography 06/01/2024 10:1 1 AM EST Impressions 06/01/2024 10:29 AM EST 1. No mammographic or sonographic evidence of malignancy 2. Heterogeneously dense Findings and recommendations were conveyed to the patient. BI-RADS CATEGORY: 2 - BENIGN RECOMMENDATION: Return to annual mammography. Return to annual mammography. Mammo Location: [facility], [address] [place] [address], [id number], . -------- FINAL REPORT -------- Dictated By: Yris Kwan Dictated Date: 06/01/2024 10:11 ET Assigned Physician: Yris Kwan Reviewed and Electronically Signed By: Yris Kwan Signed Date: 06/01/2024 10:29 ET Workstation ID: [id number] Transcribed By: Self Edit Transcribed Date: 06/01/2024 [...] mammography. Return to annual mammography. Mammo Location: [facility], [address] [place] [address], [phone], . -------- FINAL REPORT -------- Dictated By: Yris Kwan Dictated Date: 06/01/2024 10:11 ET Assigned Physician: Yris Kwan Reviewed and Electronically Signed By: Yris Kwan Signed Date: 06/01/2024 10:29 ET Workstation ID: [id number] Transcribed By: Self Edit Transcribed Date: 06/01/2024 10:21 ET us Bryon Ding MD IMG BI PROCEDURES Final Resu lt * DXA BONE DENSITY STUDY 1+ SITS AXIAL SK (04/30/2023 10:16 AM EST) Anatomical Region Laterality Modality Bone Densitometr y 06/12/2022 11:3 5 AM EST Narrative 04/30/2023 5:18 PM EST STUDY: DUAL ENERGY X-RAY ABSORPTIOMETRY / DXA REASON FOR EXAM: Female, 67 years old menopausal/postmenopausal disorder TECHNIQUE: Bone Mineral Density (BMD) measurements of the lumbar spine and left hip were obtained using [employer] W (S/N [id number]). COMPARISON: None FINDINGS: L1-L4 BMD: 1.027 g/cm2 [...] lumbar spineand left hip were obtained using [employer] W (S/N [id number]). COMPARISON: None FINDINGS: L1-L4 BMD: 1.027 g/cm2 [...] Insurance [employer] Care Teams Railroad Crossing Protection Maintainer Relationship Specialty Start Date End Date Bryon Ding MD [address] [place] [address] [address] [place] PCP - General 11/27/09
== END ==
LOC: HO.HGI 14:08
PROVIDERS: PCP Internal Medicine; Visit Provider Internal Medicine
DX: R13.10 Dysphagia, unspecified (principal)
CPT/HCPCS: 99214

== ENCOUNTER → 2025-03-06 14:07 | Outpatient (BNVA) | payer MEDICARE, SELFPAY | PROVIDERS: PCP Internal Medicine; Visit Provider Internal Medicine | DX: Z01.818 Encounter for other preprocedural examination (principal); R13.10 Dysphagia, unspecified | CPT/HCPCS: 99212 ==